=== PATIENT | male | born 1955 | race Caucasian/White ===

== ENCOUNTER 2020-06-20 08:58 | Outpatient (REF) | payer OTHER, SELFPAY ==
[2020-06-20 09:18] LABS: MANUAL DIFF FLAG NO
[2020-06-20 09:19] LABS: Basophils Percent Auto 0.6 % (0-2); Eosinophils Absolute Auto 0.2 X10*3/uL (0.0-0.4); Eosinophils Percent Auto 3.9 % (0-4); Hematocrit 47.1 % (42-52); Hemoglobin 15.8 g/dl (14.0-18.0); Imm Gran Abs Auto 0.02 X10*3/uL (0.00-0.03); Imm Gran Pct Auto 0.3 % (0.0-0.4); Lymphocytes Absolute Auto 1.6 X10*3/uL (1.2-4.9); Lymphocytes Percent Auto 25.2 % (20-40); Mean Corpuscular HGB Conc 33.5 g/dl (31.0-36.0); Mean Corpuscular Volume 86.6 fL (80-98); Mean Platelet Volume 11.8 fL (9.4-12.4); Monocytes Absolute Auto 0.5 X10*3/uL (0.1-1.2); Monocytes Percent Auto 7.9 % (2-11); Neutrophils Absolute Auto 3.9 X10*3/uL (2.0-8.3); Neutrophils Percent Auto 62.1 % (45-73); Platelet Count 147 X10*3/uL (160-400); Red Blood Count 5.44 X10*6/uL (4.60-5.80); Red Cell Distribution Width 12.8 % (11.0-16.0); White Blood Count 6.2 X10*3/uL (4.8-10.8)
[2020-06-20 09:49] LABS: Alanine Aminotransferase 31 U/L (0-40); Albumin Level 4.3 g/dL (3.5-5.0); Alkaline Phosphatase 99 U/L (39-117); Anion Gap 13 (12-20); Aspartate Amino Transferase 19 U/L (5-37); Bilirubin Total 1.2 mg/dL (0.0-1.0); Blood Urea Nitrogen 13 mg/dL (9-16); Carbon Dioxide 26 mmol/L (22-29); Chloride 96 mmol/L (96-108); Cholesterol 127 mg/dL; Estimated Glomerular Filt Rate > 60; Glucose Fasting 257 mg/dL (60-99); HDL Cholesterol 43 mg/dL; LDL Cholesterol Calculated 65 mg/dl; Potassium 4.3 mmol/l (3.3-5.1); Sodium 131 mmol/L (135-145); Total Protein 6.8 g/dL (6.5-8.0); Triglycerides 96 mg/dL
[2020-06-20 09:54] LABS: Creatinine Urine 107.46 mg/dL; Microalbum/Creatinine Ratio Ur 62.3 ug/mg cr
[2020-06-20 11:07] LABS: Hemoglobin A1c % > 14.0 %
== END 2020-06-20 08:59 | disposition home or self-care (01) ==
LOC: HO.LAB 08:58
PROVIDERS: Visit Provider Internal Medicine Medical Oncology
DX: E78.5 Hyperlipidemia, unspecified (principal); D69.6 Thrombocytopenia, unspecified; E66.01 Morbid (severe) obesity due to excess calories
CPT/HCPCS: 36415; 80053; 80061; 82043; 83036; 85025

== ENCOUNTER 2020-07-08 15:35 | Outpatient (REF) | payer OTHER, SELFPAY | END 2020-07-08 15:36 | disposition home or self-care (01) | LOC: HO.LAB 15:35 | PROVIDERS: Visit Provider Internal Medicine | DX: Z20.828 Contact with and (suspected) exposure to other viral communicable diseases (principal) | CPT/HCPCS: C9803; U0003 ==

== ENCOUNTER 2020-09-19 09:44 | Outpatient (REF) | payer OTHER, SELFPAY ==
[2020-09-19 11:08] LABS: MANUAL DIFF FLAG NO
[2020-09-19 11:16] LABS: Basophils Percent Auto 0.5 % (0-2); Eosinophils Absolute Auto 0.3 X10*3/uL (0.0-0.4); Eosinophils Percent Auto 4.1 % (0-4); Hematocrit 47.3 % (42-52); Hemoglobin 15.7 g/dl (14.0-18.0); Imm Gran Abs Auto 0.02 X10*3/uL (0.00-0.03); Imm Gran Pct Auto 0.3 % (0.0-0.4); Lymphocytes Absolute Auto 1.9 X10*3/uL (1.2-4.9); Lymphocytes Percent Auto 29.3 % (20-40); Mean Corpuscular HGB Conc 33.2 g/dl (31.0-36.0); Mean Corpuscular Hemoglobin 28.8 pg (27.0-33.0); Mean Corpuscular Volume 86.8 fL (80-98); Mean Platelet Volume 12.1 fL (9.4-12.4); Monocytes Absolute Auto 0.5 X10*3/uL (0.1-1.2); Monocytes Percent Auto 8.2 % (2-11); Neutrophils Absolute Auto 3.6 X10*3/uL (2.0-8.3); Neutrophils Percent Auto 57.6 % (45-73); Platelet Count 142 X10*3/uL (160-400); Red Blood Count 5.45 X10*6/uL (4.60-5.80); Red Cell Distribution Width 13.2 % (11.0-16.0); White Blood Count 6.3 X10*3/uL (4.8-10.8)
[2020-09-19 11:33] LABS: Estimated Average Glucose 292 mg/dL; Hemoglobin A1c % 11.8 %
[2020-09-19 11:44] LABS: Alanine Aminotransferase 25 U/L (0-40); Albumin Level 4.2 g/dL (3.5-5.0); Alkaline Phosphatase 83 U/L (39-117); Anion Gap 13 (12-20); Aspartate Amino Transferase 19 U/L (5-37); Bilirubin Total 1.4 mg/dL (0.0-1.0); Blood Urea Nitrogen 14 mg/dL (9-16); Calcium 9.2 mg/dL (8.4-10.2); Carbon Dioxide 29 mmol/L (22-29); Chloride 102 mmol/L (96-108); Estimated Glomerular Filt Rate > 60; Glucose Random 196 mg/dL (60-115); Potassium 4.9 mmol/L (3.3-5.1); Sodium 139 mmol/L (135-145); Total Protein 6.7 g/dL (6.5-8.0)
== END 2020-09-19 09:45 | disposition home or self-care (01) ==
LOC: HO.LAB 09:44
PROVIDERS: PCP Internal Medicine Medical Oncology; Visit Provider Internal Medicine Medical Oncology
DX: E78.5 Hyperlipidemia, unspecified (principal); D69.6 Thrombocytopenia, unspecified; E11.9 Type 2 diabetes mellitus without complications
CPT/HCPCS: 36415; 80053; 83036; 85025

== ENCOUNTER → 2020-09-23 14:39 | Outpatient (BNVA) | payer OTHER, SELFPAY | PROVIDERS: PCP Internal Medicine Medical Oncology; Visit Provider Internal Medicine Cardiovascular Disease | DX: I25.10 Atherosclerotic heart disease of native coronary artery without angina pectoris (principal); E78.5 Hyperlipidemia, unspecified | CPT/HCPCS: 93005 ==

== ENCOUNTER 2021-02-06 08:27 | Outpatient (REF) | payer OTHER, SELFPAY ==
[2021-02-06 08:49] LABS: Basophils Percent Auto 0.4 % (0-2); Eosinophils Absolute Auto 0.2 X10*3/uL (0.0-0.4); Eosinophils Percent Auto 3.1 % (0-4); Hematocrit 46.8 % (42-52); Hemoglobin 15.3 g/dl (14.0-18.0); Imm Gran Abs Auto 0.02 X10*3/uL (0.00-0.03); Imm Gran Pct Auto 0.3 % (0.0-0.4); Lymphocytes Absolute Auto 1.8 X10*3/uL (1.2-4.9); Lymphocytes Percent Auto 26.7 % (20-40); MANUAL DIFF FLAG NO; Mean Corpuscular HGB Conc 32.7 g/dl (31.0-36.0); Mean Corpuscular Hemoglobin 28.9 pg (27.0-33.0); Mean Corpuscular Volume 88.3 fL (80-98); Mean Platelet Volume 11.3 fL (9.4-12.4); Monocytes Absolute Auto 0.5 X10*3/uL (0.1-1.2); Monocytes Percent Auto 7.6 % (2-11); Neutrophils Absolute Auto 4.2 X10*3/uL (2.0-8.3); Neutrophils Percent Auto 61.9 % (45-73); Platelet Count 145 X10*3/uL (160-400); Red Cell Distribution Width 13.6 % (11.0-16.0); White Blood Count 6.8 X10*3/uL (4.8-10.8)
[2021-02-06 09:13] LABS: Estimated Average Glucose 123 mg/dL; Hemoglobin A1c % 5.9 %
[2021-02-06 09:17] LABS: Alanine Aminotransferase 25 U/L (0-40); Albumin Level 4.1 g/dL (3.5-5.0); Alkaline Phosphatase 69 U/L (39-117); Anion Gap 13 (12-20); Aspartate Amino Transferase 21 U/L (5-37); Bilirubin Total 1.3 mg/dL (0.0-1.0); Blood Urea Nitrogen 17 mg/dL (9-16); Calcium 9.2 mg/dL (8.4-10.2); Carbon Dioxide 24 mmol/L (22-29); Chloride 106 mmol/L (96-108); Estimated Glomerular Filt Rate > 60; Glucose Fasting 107 mg/dL (60-99); Potassium 4.5 mmol/L (3.3-5.1); Sodium 138 mmol/L (135-145); Total Protein 6.7 g/dL (6.5-8.0)
[2021-02-06 09:41] LABS: Erythrocyte Sedimentation Rate 2 MM/HR (0-15)
[2021-02-06 09:42] LABS: Prostate Specific Antigen 0.82 ng/mL (<0.05-4.0)
[2021-02-06 09:55] LABS: Creatinine Urine 121.63 mg/dL; Microalbum/Creatinine Ratio Ur 6.5 ug/mg cr
== END 2021-02-06 08:28 | disposition home or self-care (01) ==
LOC: HO.LAB 08:27
PROVIDERS: PCP Internal Medicine Medical Oncology; Visit Provider Internal Medicine Medical Oncology
DX: Z12.5 Encounter for screening for malignant neoplasm of prostate (principal); D69.6 Thrombocytopenia, unspecified; D12.6 Benign neoplasm of colon, unspecified; E66.01 Morbid (severe) obesity due to excess calories; E78.5 Hyperlipidemia, unspecified; E11.9 Type 2 diabetes mellitus without complications
CPT/HCPCS: 36415; 80053; 82043; 83036; 84153; 85025; 85652

== ENCOUNTER 2021-02-08 11:39 | Outpatient (REF) | payer OTHER, SELFPAY | END 2021-02-08 11:40 | disposition home or self-care (01) | LOC: HO.LAB 11:39 | PROVIDERS: PCP Internal Medicine Medical Oncology; Visit Provider Internal Medicine Medical Oncology | DX: Z20.822 Contact with and (suspected) exposure to COVID-19 (principal) | CPT/HCPCS: U0003; U0005 ==

== ENCOUNTER 2021-05-08 08:28 | Outpatient (REF) | payer OTHER, SELFPAY ==
[2021-05-08 08:44] LABS: MANUAL DIFF FLAG NO
[2021-05-08 09:25] LABS: Basophils Percent Auto 0.7 % (0-2); Eosinophils Absolute Auto 0.3 X10*3/uL (0.0-0.4); Eosinophils Percent Auto 5.2 % (0-4); Hemoglobin 15.7 g/dl (14.0-18.0); Imm Gran Abs Auto 0.02 X10*3/uL (0.00-0.03); Imm Gran Pct Auto 0.3 % (0.0-0.4); Lymphocytes Percent Auto 32.5 % (20-40); Mean Corpuscular HGB Conc 33.4 g/dl (31.0-36.0); Mean Corpuscular Hemoglobin 28.9 pg (27.0-33.0); Mean Corpuscular Volume 86.4 fL (80-98); Mean Platelet Volume 11.3 fL (9.4-12.4); Monocytes Absolute Auto 0.5 X10*3/uL (0.1-1.2); Monocytes Percent Auto 8.3 % (2-11); Neutrophils Absolute Auto 3.3 X10*3/uL (2.0-8.3); Platelet Count 149 X10*3/uL (160-400); Red Blood Count 5.44 X10*6/uL (4.60-5.80); Red Cell Distribution Width 13.7 % (11.0-16.0); White Blood Count 6.2 X10*3/uL (4.8-10.8)
[2021-05-08 09:37] LABS: Estimated Average Glucose 123 mg/dL; Hemoglobin A1c % 5.9 %
[2021-05-08 09:55] LABS: Alanine Aminotransferase 24 U/L (0-40); Albumin Level 4.2 g/dL (3.5-5.0); Alkaline Phosphatase 81 U/L (39-117); Anion Gap 11 (12-20); Aspartate Amino Transferase 21 U/L (5-37); Bilirubin Total 1.1 mg/dL (0.0-1.0); Blood Urea Nitrogen 19 mg/dL (9-16); Calcium 9.7 mg/dL (8.4-10.2); Carbon Dioxide 28 mmol/L (22-29); Chloride 105 mmol/L (96-108); Cholesterol 133 mg/dL; Estimated Glomerular Filt Rate > 60; Glucose Fasting 101 mg/dL (60-99); HDL Cholesterol 42 mg/dL; LDL Cholesterol Calculated 78 mg/dl; Potassium 5.1 mmol/L (3.3-5.1); Sodium 139 mmol/L (135-145); Total Protein 6.9 g/dL (6.5-8.0); Triglycerides 69 mg/dL
== END 2021-05-08 08:29 | disposition home or self-care (01) ==
LOC: HO.LAB 08:28
PROVIDERS: PCP Internal Medicine Medical Oncology; Visit Provider Internal Medicine Medical Oncology
DX: D69.6 Thrombocytopenia, unspecified (principal); E66.01 Morbid (severe) obesity due to excess calories; E78.5 Hyperlipidemia, unspecified; E11.9 Type 2 diabetes mellitus without complications
CPT/HCPCS: 36415; 80053; 80061; 83036; 85025

== ENCOUNTER 2021-09-04 09:19 | Outpatient (REF) | payer OTHER, SELFPAY ==
[2021-09-04 09:46] LABS: MANUAL DIFF FLAG NO
[2021-09-04 10:09] LABS: Estimated Average Glucose 137 mg/dL; Hemoglobin A1c % 6.4 %
[2021-09-04 10:16] LABS: Basophils Percent Auto 0.7 % (0-2); Eosinophils Absolute Auto 0.2 X10*3/uL (0.0-0.4); Eosinophils Percent Auto 3.7 % (0-4); Hemoglobin 15.6 g/dl (14.0-18.0); Imm Gran Abs Auto 0.02 X10*3/uL (0.00-0.03); Imm Gran Pct Auto 0.3 % (0.0-0.4); Lymphocytes Absolute Auto 1.9 X10*3/uL (1.2-4.9); Lymphocytes Percent Auto 31.9 % (20-40); Mean Corpuscular HGB Conc 33.2 g/dl (31.0-36.0); Mean Corpuscular Hemoglobin 29.1 pg (27.0-33.0); Mean Corpuscular Volume 87.5 fL (80.0-98.0); Mean Platelet Volume 11.7 fL (9.4-12.4); Monocytes Absolute Auto 0.5 X10*3/uL (0.1-1.2); Monocytes Percent Auto 8.6 % (2-11); Neutrophils Absolute Auto 3.3 x10*3/uL (2.0-8.3); Neutrophils Percent Auto 54.8 % (45-73); Platelet Count 120 X10*3/uL (160-400); Red Blood Count 5.37 X10*6/uL (4.60-5.80); Red Cell Distribution Width 13.2 % (11.0-16.0)
[2021-09-04 10:31] LABS: Alanine Aminotransferase 22 U/L (0-40); Albumin Level 4.1 g/dL (3.5-5.0); Alkaline Phosphatase 77 U/L (39-117); Anion Gap 11 (12-20); Aspartate Amino Transferase 19 U/L (5-37); Bilirubin Total 1.4 mg/dL (0.0-1.0); Blood Urea Nitrogen 18 mg/dL (9-16); Calcium 9.4 mg/dL (8.4-10.2); Carbon Dioxide 26 mmol/L (22-29); Chloride 108 mmol/L (96-108); Estimated Glomerular Filt Rate > 60; Glucose Fasting 113 mg/dL (60-99); Potassium 4.5 mmol/L (3.3-5.1); Sodium 140 mmol/L (135-145); Total Protein 6.7 g/dL (6.5-8.0)
== END 2021-09-04 09:20 | disposition home or self-care (01) ==
LOC: HO.LAB 09:19
PROVIDERS: PCP Internal Medicine Medical Oncology; Visit Provider Internal Medicine Medical Oncology
DX: D69.6 Thrombocytopenia, unspecified (principal); D12.6 Benign neoplasm of colon, unspecified; E66.01 Morbid (severe) obesity due to excess calories; E78.5 Hyperlipidemia, unspecified; E11.9 Type 2 diabetes mellitus without complications
CPT/HCPCS: 36415; 80053; 83036; 85025

== ENCOUNTER → 2021-09-27 13:52 | Outpatient (BNVA) | payer OTHER, SELFPAY | PROVIDERS: PCP Internal Medicine Medical Oncology; Visit Provider Internal Medicine Cardiovascular Disease | DX: I25.10 Atherosclerotic heart disease of native coronary artery without angina pectoris (principal); I25.2 Old myocardial infarction; Z79.82 Long term (current) use of aspirin | CPT/HCPCS: 93005 ==

== ENCOUNTER 2021-12-11 08:40 | Outpatient (REF) | payer OTHER, SELFPAY ==
[2021-12-11 08:54] LABS: MANUAL DIFF FLAG NO
[2021-12-11 09:26] LABS: Basophils Percent Auto 0.8 % (0-2); Eosinophils Absolute Auto 0.2 X10*3/uL (0.0-0.4); Eosinophils Percent Auto 3.9 % (0-4); Hematocrit 45.8 % (42.0-52.0); Hemoglobin 15.3 g/dl (14.0-18.0); Imm Gran Abs Auto 0.01 X10*3/uL (0.00-0.03); Imm Gran Pct Auto 0.2 % (0.0-0.4); Lymphocytes Absolute Auto 1.7 X10*3/uL (1.2-4.9); Lymphocytes Percent Auto 32.8 % (20-40); Mean Corpuscular HGB Conc 33.4 g/dl (31.0-36.0); Mean Corpuscular Hemoglobin 28.9 pg (27.0-33.0); Mean Corpuscular Volume 86.6 fL (80.0-98.0); Mean Platelet Volume 12.2 fL (9.4-12.4); Monocytes Absolute Auto 0.5 X10*3/uL (0.1-1.2); Monocytes Percent Auto 8.8 % (2-11); Neutrophils Absolute Auto 2.7 x10*3/uL (2.0-8.3); Neutrophils Percent Auto 53.5 % (45-73); Platelet Count 128 X10*3/uL (160-400); Red Blood Count 5.29 X10*6/uL (4.60-5.80); Red Cell Distribution Width 13.7 % (11.0-16.0); White Blood Count 5.1 X10*3/uL (4.8-10.8)
[2021-12-11 09:49] LABS: Estimated Average Glucose 143 mg/dL; Hemoglobin A1c % 6.6 %
[2021-12-11 10:00] LABS: Alanine Aminotransferase 25 U/L (0-40); Albumin Level 4.1 g/dL (3.5-5.0); Alkaline Phosphatase 76 U/L (39-117); Anion Gap 12 (12-20); Aspartate Amino Transferase 21 U/L (5-37); Blood Urea Nitrogen 18 mg/dL (9-16); Calcium 9.6 mg/dL (8.4-10.2); Carbon Dioxide 22 mmol/L (22-29); Chloride 109 mmol/L (96-108); Cholesterol 135 mg/dL; Estimated Glomerular Filt Rate > 60; Glucose Fasting 147 mg/dL (60-99); HDL Cholesterol 46 mg/dL; LDL Cholesterol Calculated 77 mg/dl; Potassium 4.3 mmol/L (3.3-5.1); Sodium 139 mmol/L (135-145); Triglycerides 64 mg/dL
[2021-12-11 10:22] LABS: PSA,Total (Free>4and<10) 0.72 ng/mL (0.00-4.00)
== END 2021-12-11 08:41 | disposition home or self-care (01) ==
LOC: HO.LAB 08:40
PROVIDERS: PCP Internal Medicine Medical Oncology; Visit Provider Internal Medicine Medical Oncology
DX: Z12.5 Encounter for screening for malignant neoplasm of prostate (principal); E78.5 Hyperlipidemia, unspecified; E11.9 Type 2 diabetes mellitus without complications; N40.0 Benign prostatic hyperplasia without lower urinary tract symptoms
CPT/HCPCS: 36415; 80053; 80061; 83036; 84153; 85025

== ENCOUNTER 2022-03-01 07:27 | Outpatient (REF) | payer OTHER, SELFPAY ==
[2022-03-01 07:45] LABS: MANUAL DIFF FLAG NO
[2022-03-01 08:05] LABS: Basophils Percent Auto 0.4 % (0-2); Eosinophils Absolute Auto 0.3 X10*3/uL (0.0-0.4); Eosinophils Percent Auto 5.9 % (0-4); Hemoglobin 14.9 g/dl (14.0-18.0); Imm Gran Abs Auto 0.01 X10*3/uL (0.00-0.03); Imm Gran Pct Auto 0.2 % (0.0-0.4); Lymphocytes Absolute Auto 1.8 X10*3/uL (1.2-4.9); Mean Corpuscular HGB Conc 33.1 g/dl (31.0-36.0); Mean Corpuscular Hemoglobin 28.7 pg (27.0-33.0); Mean Corpuscular Volume 86.5 fL (80.0-98.0); Mean Platelet Volume 11.4 fL (9.4-12.4); Monocytes Absolute Auto 0.5 X10*3/uL (0.1-1.2); Monocytes Percent Auto 8.7 % (2-11); Neutrophils Absolute Auto 2.8 x10*3/uL (2.0-8.3); Neutrophils Percent Auto 51.8 % (45-73); Platelet Count 122 X10*3/uL (160-400); Red Cell Distribution Width 13.3 % (11.0-16.0); White Blood Count 5.4 X10*3/uL (4.8-10.8)
[2022-03-01 08:15] LABS: Estimated Average Glucose 148 mg/dL; Hemoglobin A1c % 6.8 %
[2022-03-01 08:25] LABS: Alanine Aminotransferase 21 U/L (0-40); Albumin Level 4.1 g/dL (3.5-5.0); Alkaline Phosphatase 73 U/L (39-117); Anion Gap 13 (12-20); Aspartate Amino Transferase 21 U/L (5-37); Bilirubin Total 1.1 mg/dL (0.0-1.0); Blood Urea Nitrogen 17 mg/dL (9-16); Calcium 9.3 mg/dL (8.4-10.2); Carbon Dioxide 27 mmol/L (22-29); Chloride 105 mmol/L (96-108); Cholesterol 130 mg/dL; Estimated Glomerular Filt Rate > 60; Glucose Fasting 133 mg/dL (60-99); HDL Cholesterol 45 mg/dL; LDL Cholesterol Calculated 69 mg/dl; Potassium 4.8 mmol/L (3.3-5.1); Sodium 140 mmol/L (135-145); Total Protein 6.7 g/dL (6.5-8.0); Triglycerides 83 mg/dL
[2022-03-01 08:46] LABS: Prostate Specific Antigen 0.73 ng/mL (<0.05-4.0)
== END 2022-03-01 07:28 | disposition home or self-care (01) ==
LOC: HO.LAB 07:27
PROVIDERS: PCP Internal Medicine Medical Oncology; Visit Provider Internal Medicine Medical Oncology
DX: Z12.5 Encounter for screening for malignant neoplasm of prostate (principal); E78.5 Hyperlipidemia, unspecified; E11.9 Type 2 diabetes mellitus without complications; N40.0 Benign prostatic hyperplasia without lower urinary tract symptoms
CPT/HCPCS: 36415; 80053; 80061; 83036; 84153; 85025

== ENCOUNTER 2022-06-06 08:30 | Outpatient (REF) | payer OTHER, SELFPAY ==
[2022-06-06 08:41] LABS: MANUAL DIFF FLAG NO
[2022-06-06 09:10] LABS: Basophils Absolute Auto 0.1 X10*3/uL (0.0-0.2); Eosinophils Absolute Auto 0.2 X10*3/uL (0.0-0.4); Eosinophils Percent Auto 3.7 % (0-4); Hematocrit 46.4 % (42.0-52.0); Hemoglobin 15.1 g/dl (14.0-18.0); Imm Gran Abs Auto 0.01 X10*3/uL (0.00-0.03); Imm Gran Pct Auto 0.2 % (0.0-0.4); Lymphocytes Absolute Auto 1.5 X10*3/uL (1.2-4.9); Lymphocytes Percent Auto 29.7 % (20-40); Mean Corpuscular HGB Conc 32.5 g/dl (31.0-36.0); Mean Corpuscular Hemoglobin 28.4 pg (27.0-33.0); Mean Corpuscular Volume 87.2 fL (80.0-98.0); Mean Platelet Volume 11.8 fL (9.4-12.4); Monocytes Absolute Auto 0.5 X10*3/uL (0.1-1.2); Monocytes Percent Auto 9.4 % (2-11); Neutrophils Absolute Auto 2.9 x10*3/uL (2.0-8.3); Platelet Count 126 X10*3/uL (160-400); Red Blood Count 5.32 X10*6/uL (4.60-5.80); Red Cell Distribution Width 13.6 % (11.0-16.0); White Blood Count 5.2 X10*3/uL (4.8-10.8)
[2022-06-06 09:17] LABS: Estimated Average Glucose 148 mg/dL; Hemoglobin A1c % 6.8 %
[2022-06-06 09:21] LABS: Alanine Aminotransferase 22 U/L (0-40); Albumin Level 4.2 g/dL (3.5-5.0); Alkaline Phosphatase 86 U/L (39-117); Anion Gap 16 (12-20); Aspartate Amino Transferase 23 U/L (5-37); Bilirubin Total 1.9 mg/dL (0.0-1.0); Blood Urea Nitrogen 20 mg/dL (9-16); Calcium 9.2 mg/dL (8.4-10.2); Carbon Dioxide 24 mmol/L (22-29); Chloride 104 mmol/L (96-108); Cholesterol 135 mg/dL; Estimated Glomerular Filt Rate > 60; Glucose Fasting 120 mg/dL (60-99); HDL Cholesterol 45 mg/dL; LDL Cholesterol Calculated 75 mg/dl; Potassium 4.7 mmol/L (3.3-5.1); Sodium 139 mmol/L (135-145); Total Protein 6.8 g/dL (6.5-8.0); Triglycerides 76 mg/dL
[2022-06-06 10:05] LABS: Creatinine Urine 177.55 mg/dL; Microalbum/Creatinine Ratio Ur 11.2 ug/mg cr
== END 2022-06-06 08:31 | disposition home or self-care (01) ==
LOC: HO.LAB 08:30
PROVIDERS: PCP Internal Medicine Medical Oncology; Visit Provider Internal Medicine Medical Oncology
DX: E78.5 Hyperlipidemia, unspecified (principal); E11.9 Type 2 diabetes mellitus without complications
CPT/HCPCS: 36415; 80053; 80061; 82043; 83036; 85025

== ENCOUNTER 2022-08-30 08:20 | Outpatient (REF) | payer OTHER, SELFPAY ==
[2022-08-30 08:41] LABS: MANUAL DIFF FLAG NO
[2022-08-30 09:19] LABS: Basophils Percent Auto 0.7 % (0-2); Eosinophils Absolute Auto 0.2 X10*3/uL (0.0-0.4); Eosinophils Percent Auto 3.4 % (0-4); Hematocrit 46.5 % (42.0-52.0); Hemoglobin 15.7 g/dl (14.0-18.0); Imm Gran Abs Auto 0.02 X10*3/uL (0.00-0.03); Imm Gran Pct Auto 0.4 % (0.0-0.4); Lymphocytes Absolute Auto 1.6 X10*3/uL (1.2-4.9); Lymphocytes Percent Auto 28.6 % (20-40); Mean Corpuscular HGB Conc 33.8 g/dl (31.0-36.0); Mean Corpuscular Hemoglobin 28.9 pg (27.0-33.0); Mean Corpuscular Volume 85.5 fL (80.0-98.0); Mean Platelet Volume 12.1 fL (9.4-12.4); Monocytes Absolute Auto 0.5 X10*3/uL (0.1-1.2); Monocytes Percent Auto 8.4 % (2-11); Neutrophils Absolute Auto 3.3 x10*3/uL (2.0-8.3); Neutrophils Percent Auto 58.5 % (45-73); Platelet Count 144 X10*3/uL (160-400); Red Blood Count 5.44 X10*6/uL (4.60-5.80); Red Cell Distribution Width 13.1 % (11.0-16.0); White Blood Count 5.6 X10*3/uL (4.8-10.8)
[2022-08-30 09:37] LABS: Estimated Average Glucose 189 mg/dL; Hemoglobin A1c % 8.2 %
[2022-08-30 09:57] LABS: Alanine Aminotransferase 24 U/L (0-40); Albumin Level 4.2 g/dL (3.5-5.0); Alkaline Phosphatase 95 U/L (39-117); Anion Gap 13 (12-20); Aspartate Amino Transferase 20 U/L (5-37); Bilirubin Total 1.4 mg/dL (0.0-1.0); Blood Urea Nitrogen 25 mg/dL (9-16); Calcium 9.5 mg/dL (8.4-10.2); Carbon Dioxide 25 mmol/L (22-29); Chloride 106 mmol/L (96-108); Cholesterol 139 mg/dL; Estimated Glomerular Filt Rate > 60; Glucose Random 157 mg/dL (60-115); HDL Cholesterol 40 mg/dL; LDL Cholesterol Calculated 84 mg/dl; Potassium 5.1 mmol/L (3.3-5.1); Sodium 139 mmol/L (135-145); Total Protein 6.8 g/dL (6.5-8.0); Triglycerides 75 mg/dL
[2022-08-30 10:12] LABS: Prostate Specific Antigen 0.74 ng/mL (<0.05-4.0)
== END 2022-08-30 08:21 | disposition home or self-care (01) ==
LOC: HO.LAB 08:20
PROVIDERS: PCP Internal Medicine Medical Oncology; Visit Provider Internal Medicine Medical Oncology
DX: E78.5 Hyperlipidemia, unspecified (principal); D69.6 Thrombocytopenia, unspecified; D12.6 Benign neoplasm of colon, unspecified; F52.21 Male erectile disorder; E66.01 Morbid (severe) obesity due to excess calories; N20.1 Calculus of ureter; E11.9 Type 2 diabetes mellitus without complications; N40.0 Benign prostatic hyperplasia without lower urinary tract symptoms; Z12.5 Encounter for screening for malignant neoplasm of prostate
CPT/HCPCS: 36415; 80053; 80061; 83036; 84153; 85025

== ENCOUNTER 2022-09-13 11:34 | Emergency (ER) | payer OTHER, SELFPAY ==
--- NOTE | ~2022-09-13 | CT_ITS ---
EXAMINATION: CTA OF THE HEAD AND NECK CLINICAL INFORMATION: Dizziness and ataxia. COMPARISON: None. TECHNIQUE: Test bolus sequences followed by intravenous administration 70 mL of Omnipaque 350. Helical imaging was performed in the axial plane from the mediastinum to the skull vertex. Delayed postcontrast imaging of the head was also performed. The data was processed at the apparatus engineering technologist's workstation for generation of MIP sequences. Three-dimensional volume rendered reformatted images were also generated at an offline 3-D workstation. Stenoses are assessed in accordance with NASCET criteria unless otherwise indicated. This CT examination was performed using dose optimization techniques as appropriate, variously including the following: *Automated exposure control *Adjustment of mA and/or kV according to patient size (this includes techniques or standardized protocols for targeted exams where dose is matched to indication/reason for exam; i.e. extremities or head) *Use of iterative reconstruction technique DLP: 2489 mGy-cm. FINDINGS: CT head: There is no evidence of acute intracranial hemorrhage or territorial infarction. There is no loss of watson to white matter differentiation. No abnormal mass effect or midline shift is seen. No extra-axial fluid collections are identified. There is no abnormal enhancement. The ventricles are normal in size. There is no abnormal attenuation within the brain parenchyma. The osseous structures and soft tissues are normal. The mastoid air cells and visualized portions of the paranasal sinuses are well aerated. CTA neck: The imaged aortic arch and origins of the great vessels are normal. The common carotid arteries are widely patent. The carotid bifurcations are patent with mild atherosclerotic wall calcifications. The cervical internal carotid arteries are otherwise normal. The vertebral arteries opacify normally and are of normal caliber. The soft tissues of the neck are unremarkable. There are dependent subsegmental atelectatic changes in the lungs. Multilevel cervical spondylosis noted. CTA head: The intradural vertebral arteries and basilar artery are patent with mild atherosclerotic wall calcifications. The posterior cerebral arteries are widely patent. The internal carotid arteries are of normal caliber. A small outpouching along the lateral wall of the cavernous segment of the left ICA may represent a conspicuous infundibular origin of the inferolateral trunk versus a tiny 1.5 mm aneurysm. There are [id number] atherosclerotic wall calcifications in the supraclinoid internal carotid arteries, more so on the left side. The AVILA and MCA vascular complexes bilaterally are normal. There is no abnormal parenchymal or leptomeningeal enhancement intracranially. The venous sinuses opacify normally. CT/CT angio head neck IMPRESSION: Relatively normal CT angiogram of the neck with mild atherosclerotic wall calcifications at the bifurcations. Small 1.5 mm outpouching along the lateral wall of the cavernous segment of the left ICA which either represents a conspicuous infundibular origin of the inferolateral trunk versus a tiny aneurysm. [id number] atherosclerotic wall calcifications in the supraclinoid internal carotid arteries without significant stenosis. Otherwise, normal CT angiogram of the head. No acute intracranial process. Imaging findings reported to SANDRINE Bhat at 1:56 PM on 09/13/2022.
--- NOTE | 2022-09-13 11:38 | ED_ITS ---
HPI - Dizziness General Chief Complaint: Dizziness <Bellebecka Spivey CNP - Last Filed: 09/13/22 11:59> Stated Complaint: Dizziness/R ear hearing loss <Belle Lucretia Spivey CNP - Last Filed: 09/13/22 11:59> Time Seen by Provider: 09/13/22 11:50 <Belle Spivey CNP - Last Filed: 09/13/22 11:59> Source: patient <Arely JonesDO - Last Filed: 09/13/22 16:30> Mode of arrival: ambulatory <Arely Robert DO - Last Filed: 09/13/22 16:30> Limitations: no limitations <Arely Jonse DO - Last Filed: 09/13/22 16:30> History of Present Illness HPI Narrative: 67 yo male with hx of CAD, HLD not on thinners here not feeling well x 1 week with R ear blockage feels like he has wax or something in it. On and off dizziness that is room spinning with n/v getting worse. He was sick with it yesterday as well woke up and seemed okay so he tried to go to work and then became acutely dizzy again at 9am but states he was never quite right. He has a hard time walking straight and has been vomiting <Arely Jones DO - Last Filed: 09/13/22 16:30> MD elicited complaint: dizziness <Arely DO Robert - Last Filed: 09/13/22 16:30> Onset (ago): week(s) (1) <Arely Jones DO - Last Filed: 09/13/22 16:30> Timing: sudden onset and intermittent <Arely Jones DO - Last Filed: 09/13/22 16:30> Severity: severe <Arely Jones DO - Last Filed: 09/13/22 16:30> Description: room spinning <Arely Jones DO - Last Filed: 09/13/22 16:30> History of similar symptoms: No <Arely Jones DO - Last Filed: 09/13/22 16:30> Exacerbating factors: other (turning head) <Arely Jones DO - Last Filed: 09/13/22 16:30> Relieving factors: remaining still <Arely Jones DO - Last Filed: 09/13/22 16:30> Associated symptoms: nausea and vomiting <Arely Jones - Last Filed: 09/13/22 16:30> Related Data Home Medications: Home Medications Medication Instructions Recorded Confirmed aspirin 81 mg tablet,delayed 81 mg PO DAILY 09/23/20 09/27/21 release (Adult Low Dose Aspirin) atorvastatin 80 mg tablet 80 mg PO DAILY 09/23/20 09/27/21 metoprolol succinate 25 mg 25 mg PO DAILY 09/23/20 09/27/21 tablet,extended release 24 hr dulaglutide 0.75 mg/0.5 mL mg subcut 09/27/21 09/27/21 subcutaneous pen injector (Trulicity) Previous Rx's Medication Instructions Recorded lisinopril 5 mg tablet 5 mg PO DAILY #90 tabs 06/09/22 amoxicillin 875 mg-potassium 1 tab PO BID #14 tabs 09/13/22 clavulanate 125 mg tablet meclizine 25 mg tablet 25 mg PO TID PRN dizziness #30 tabs 09/13/22 ofloxacin 0.3 % ear drops 10 drp otic (ear) right DAILY 7 09/13/22 days #5 mL <Belle Spivey [facility] - Last Filed: 09/13/22 11:59> Allergies/Adverse Reactions: Allergies Allergy/AdvReac Type Severity Reaction Status Date / Time No Known Allergies Allergy Mild N/A Verified 09/13/22 11:43 <Belle Spivey [facility] - Last Filed: 09/13/22 11:59> Review of Systems Review of Systems: Constitutional : No Fever, No Chills, No Fatigue ENT/Mouth : No sore throat, No Rhinorrhea, R ear blockage/hearing loss Eyes: No Eye Pain, No Swelling, No Redness Cardiovascular : No Chest Pain, No SOB, No Dyspnea on Exertion Respiratory : No Cough, No Sputum Gastrointestinal : pos Nausea, pos Vomiting, No Diarrhea, No abdominal Pain Genitourinary : No Dysuria, No Urinary Frequency, No Hematuria, Musculoskeletal : No joint pain, No Myalgias, No Joint Swelling Skin : No Skin Lesions, No rash Neuro : No Weakness, No Numbness, pos Dizziness, no Headache Psych : No Anxiety/Panic, No Depression Heme/Lymph: No Bruising, No Bleeding,No Lymphadenopathy Endocrine : No Polyuria, No Polydipsia All other systems reviewed and are negative <Arely Jones DO - Last Filed: 09/13/22 16:30> [facility] Past Medical History Attestation statement: The following information was validated with the patient. <Arely Jones DO - Last Filed: 09/13/22 16:30> Medical History: Medical History Coronary artery disease Hyperlipidemia <Belle Spivey CNP - Last Filed: 09/13/22 11:59> Surgical History: Surgical History History of colonoscopy with polypectomy (~02/13/08) History of shoulder surgery (~2010) Hx of colonoscopy (~02/14/13) Hx of heart artery stent (~03/2018) Hx of right knee surgery <Belle Spivey CNP - Last Filed: 09/13/22 11:59> Family History Family History: Family History Mother Hx of breast cancer <Belle Spivey CNP - Last Filed: 09/13/22 11:59> Social History Social History: Social History Alcohol intake: never Patient Tobacco Use Status: Former Tobacco user Quit Date: 1981 Years Smoked: 20 +/- Smoked in Last 30 Days: No Use of substances other than those prescribed or required for medical reasons: No Advance Directives: No Advance Directives Information Provided: Yes <Belle Spivey CNP - Last Filed: 09/13/22 11:59> Physical Exam Vital Signs: Vital Signs: Last Vital Signs Temp 96.0 F L 09/13/22 11:40 Pulse 56 09/13/22 14:00 Resp 18 09/13/22 14:00 BP 157/84 H 09/13/22 14:00 Pulse Ox 99 09/13/22 14:00 O2 Del Method 09/13/22 14:00 BMI result Body Mass Index 36.8 <Belle Spivey CNP - Last Filed: 09/13/22 11:59> Vital Signs: Last Vital Signs Temp 96.0 F L 09/13/22 11:40 Pulse 56 09/13/22 14:00 Resp 18 09/13/22 14:00 BP 157/84 H 09/13/22 14:00 Pulse Ox 99 09/13/22 14:00 O2 Del Method 09/13/22 14:00 BMI result Body Mass Index 36.8 <Arely Jones DO - Last Filed: 09/13/22 16:30> Appearance: Alert. Oriented X3. No acute distress. Eyes: Pupils equal, round and reactive to light. no nystagmus ENT: Pharynx normal. R TM dull opacified, white in appearance, no cerumen impactio ext canal is red and swollen no drainage, no obvious perforation Neck: Normal inspection. Neck supple. CVS: Normal heart rate and rhythm. Pulses normal. Respiratory: No respiratory distress. Breath sounds normal. Abdomen: Soft and nontender. Skin: Skin warm and dry. Normal skin color. Normal skin turgor. Extremities: No lower extremity edema. No calf ttp Neuro: Oriented X 3. No motor deficit. No sensory deficit. cannot ambulate due to dizziness <Arely Jones DO - Last Filed: 09/13/22 16:30> Course Course Course Narrative: This is an RME: Additional HPI, ROS, PE not included below will be defe rred to primary provider. Patient is a 67-year-old male with Sudden onset at 0900 with dizziness head spinning unsteady gait, nausea and vomiting while at work. Denies any associated headache. Denies any history of vertigo. 1 week ago he developed a blockage to right ear and inability to hear. Called his PCP today, Dr. Morrissey, scheduled him an appointment for 13:30 today, but with worsening of his symptoms he was then advised to come to the emergency department. Denies chest pain, shortness of breath, hx [place] in 2019. PE: Right ear with cerumen impaction. actively vomiting a small amount in triage. bradycardic 47. Ataxic gait with out additional focal neurological findings. Plan: Spoke with rn relief charge, patient moved to main ED 18H provided report to Dr. Jones <Belle Spivey, [employer] SERVICER SUPERVISOR - Last Filed: 09/13/22 11:59> Reevaluation(s) Reevaluation #1: CT scan no dissection, stroke, incidental aneurysm not the cause of today's symptoms. feels much better very minimal dizziness, no vomiting, will ambulate patient steady gait, no ataxia has R knee he cannot straighten out chronic limp he is not leaning no wide based gait he was able spin walk and move around without any issues or symptoms symptoms resolved with medications no ataxia no other deficits one week of symptoms R ear the cause doubt posterior stroke <Arely Jones DO - Last Filed: 09/13/22 16:30> Medications Administered Discontinued Medications Generic Name Dose Route Start Last Admin Trade Name Freq PRN Reason Stop Dose Admin Sodium Chloride 1,000 mls @ 999 mls/hr 09/13/22 12:15 09/13/22 13:13 Ns IVCONT 09/13/22 13:15 Infused .Q1H1M KAYODE Infusion Iohexol 100 ml 09/13/22 13:14 09/13/22 13:14 Iohexol 350 Mg/Ml 100 Ml Infus..Btl IV 09/13/22 13:15 70 ml ONCE ONE Administration Meclizine HCl 25 mg 09/13/22 12:04 09/13/22 13:26 Meclizine Hcl 25 Mg Tablet PO 09/13/22 12:05 25 mg ONCE ONE Administration Ondansetron HCl 4 mg 09/13/22 12:04 09/13/22 12:11 Ondansetron Hcl 4 Mg/2 Ml Vial IVPUSH 09/13/22 12:05 4 mg ONCE ONE Administration <Belle Spivey, PU[employer] SERVICER SUPERVISOR - Last Filed: 09/13/22 11:59> Medications Administered Discontinued Medications Generic Name Dose Route Start Last Admin Trade Name Freq PRN Reason Stop Dose Admin Sodium Chloride 1,000 mls @ 999 mls/hr 09/13/22 12:15 09/13/22 13:13 Ns IVCONT 09/13/22 13:15 Infused .Q1H1M KAYODE Infusion Iohexol 100 ml 09/13/22 13:14 09/13/22 13:14 Iohexol 350 Mg/Ml 100 Ml Infus..Btl IV 09/13/22 13:15 70 ml ONCE ONE Administration Meclizine HCl 25 mg 09/13/22 12:04 09/13/22 13:26 Meclizine Hcl 25 Mg Tablet PO 09/13/22 12:05 25 mg ONCE ONE Administration Ondansetron HCl 4 mg 09/13/22 12:04 09/13/22 12:11 Ondansetron Hcl 4 Mg/2 Ml Vial IVPUSH 09/13/22 12:05 4 mg ONCE ONE Administration <Arely Jones DO - Last Filed: 09/13/22 16:30> Medical Decision Making Medical Decision Making [facility] Narrative: 67 yo male with hx of HLD, CAD here with 1 week of symptoms waxing and waning but states he was never quite right now comes in with c/o dizziness and n/v that is persistent and worse this AM it sounds like he never returned to baseline. He has no other deficits. He blames it on a blocked R ear - at this time could be vertigo vs posterior stroke - given his symptoms have been 1+ week waxing and waning but never at his baseline or 100% he would not be a candidate for tPa at this time. CTA head and neck, EKG IVF, IV zofran and meclizine ordered. <Arely Jones DO - Last Filed: 09/13/22 16:30> Differential Diagnosis Differential Diagnoses: The differential diagnosis associated with the presentation includes <Arely Jones DO - Last Filed: 09/13/22 16:30> vertigo, mass, ICH, posterior stroke <Arely Jones DO - Last Filed: 09/13/22 16:30> Lab Data [facility] Lab Attestation statement: I reviewed the patient's lab results. <Arely Jones DO - Last Filed: 09/13/22 16:30> Result Diagrams: 09/13/22 12:16 09/13/22 12:16 <Belle Spivey CNP - Last Filed: 09/13/22 11:59> Labs: Lab Results 09/13/22 09/13/22 09/13/22 Range/Units 12:16 12:16 12:16 WBC 8.1 (4.8-10.8) X10*3/uL RBC 5.58 (4.60-5.80) X10*6/uL Hgb 16.0 (14.0-18.0) g/dl Hct 48.1 (42.0-52.0) % MCV 86.2 (80.0-98.0) fL MCH 28.7 (27.0-33.0) pg MCHC 33.3 (31.0-36.0) g/dl RDW 13.2 (11.0-16.0) % Plt Count 142 L (160-400) X10*3/uL MPV 11.1 (9.4-12.4) fL Immature Gran % (Auto) 0.4 (0.0-0.4) % Neut % (Auto) 71.6 (45-73) % Lymph % (Auto) 21.1 (20-40) % Bartholomew % (Auto) 4.6 (2-11) % Eos % (Auto) 1.7 (0-4) % Baso % (Auto) 0.6 (0-2) % Lymph # (Auto) 1.7 (1.2-4.9) X10*3/uL Bartholomew # (Auto) 0.4 (0.1-1.2) X10*3/uL Eos # (Auto) 0.1 (0.0-0.4) X10*3/uL Baso # (Auto) 0.1 (0.0-0.2) X10*3/uL Abs Immat Gran (auto) 0.03 (0.00-0.03) X10*3/uL Absolute Neuts (auto) 5.8 (2.0-8.3) x10*3/uL Absolute Nucleated RBC 0.000 (0.0-0.012) X10*3/uL Nucleated RBC % (auto) 0.0 (0.0-0.2) /100WBC PT 12.3 (10.0-13.1) SEC INR 1.1 (0.9-1.1) Sodium 138 (135-145) mmol/L Potassium 4.6 (3.3-5.1) mmol/L Chloride 104 (96-108) mmol/L Carbon Dioxide 25 (22-29) mmol/L Anion Gap 14 (12-20) BUN 17 H (9-16) mg/dL Creatinine 0.96 (0.5-1.4) mg/dL Estim Creat Clear Calc 92.1 Estimated GFR > 60 Random Glucose 232 H (60-115) mg/dL Calcium 9.4 (8.4-10.2) mg/dL Magnesium 1.7 (1.6-2.6) mg/dL Total Bilirubin 1.2 H (0.0-1.0) mg/dL Direct Bilirubin 0.3 (0.0-0.5) mg/dL AST 21 (5-37) U/L ALT 27 (0-40) U/L Alkaline Phosphatase 97 (39-117) U/L Troponin I High Sens (<3.5-35.0) ng/L Total Protein 6.9 (6.5-8.0) g/dL Albumin 4.3 (3.5-5.0) g/dL Lipase 20 (8-78) U/L COVID-19 (LIDIA) (Negative) COVID-19 Clin Com 09/13/22 09/13/22 Range/Units 12:16 12:16 WBC (4.8-10.8) X10*3/uL RBC (4.60-5.80) X10*6/uL Hgb (14.0-18.0) g/dl Hct (42.0-52.0) % MCV (80.0-98.0) fL MCH (27.0-33.0) pg MCHC (31.0-36.0) g/dl RDW (11.0-16.0) % Plt Count (160-400) X10*3/uL MPV (9.4-12.4) fL Immature Gran % (Auto) (0.0-0.4) % Neut % (Auto) (45-73) % Lymph % (Auto) (20-40) % Bartholomew % (Auto) (2-11) % Eos % (Auto) (0-4) % Baso % (Auto) (0-2) % Lymph # (Auto) (1.2-4.9) X10*3/uL Bartholomew # (Auto) (0.1-1.2) X10*3/uL Eos # (Auto) (0.0-0.4) X10*3/uL Baso # (Auto) (0.0-0.2) X10*3/uL Abs Immat Gran (auto) (0.00-0.03) X10*3/uL Absolute Neuts (auto) (2.0-8.3) x10*3/uL Absolute Nucleated RBC (0.0-0.012) X10*3/uL Nucleated RBC % (auto) (0.0-0.2) /100WBC PT (10.0-13.1) SEC INR (0.9-1.1) Sodium (135-145) mmol/L Potassium (3.3-5.1) mmol/L Chloride (96-108) mmol/L Carbon Dioxide (22-29) mmol/L Anion Gap (12-20) BUN (9-16) mg/dL Creatinine (0.5-1.4) mg/dL Estim Creat Clear Calc Estimated GFR Random Glucose (60-115) mg/dL Calcium (8.4-10.2) mg/dL Magnesium (1.6-2.6) mg/dL Total Bilirubin (0.0-1.0) mg/dL Direct Bilirubin (0.0-0.5) mg/dL AST (5-37) U/L ALT (0-40) U/L Alkaline Phosphatase (39-117) U/L Troponin I High Sens < 3.5 (<3.5-35.0) ng/L Total Protein (6.5-8.0) g/dL Albumin (3.5-5.0) g/dL Lipase (8-78) U/L COVID-19 (LIDIA) Negative (Negative) COVID-19 Clin Com See Note <Belle Spivey, [employer] SERVICER SUPERVISOR - Last Filed: 09/13/22 11:59> Lab Results 09/13/22 09/13/22 09/13/22 Range/Units 12:16 12:16 12:16 WBC 8.1 (4.8-10.8) X10*3/uL RBC 5.58 (4.60-5.80) X10*6/uL Hgb 16.0 (14.0-18.0) g/dl Hct 48.1 (42.0-52.0) % MCV 86.2 (80.0-98.0) fL MCH 28.7 (27.0-33.0) pg MCHC 33.3 (31.0-36.0) g/dl RDW 13.2 (11.0-16.0) % Plt Count 142 L (160-400) X10*3/uL MPV 11.1 (9.4-12.4) fL Immature Gran % (Auto) 0.4 (0.0-0.4) % Neut % (Auto) 71.6 (45-73) % Lymph % (Auto) 21.1 (20-40) % Bartholomew % (Auto) 4.6 (2-11) % Eos % (Auto) 1.7 (0-4) % Baso % (Auto) 0.6 (0-2) % Lymph # (Auto) 1.7 (1.2-4.9) X10*3/uL Bartholomew # (Auto) 0.4 (0.1-1.2) X10*3/uL Eos # (Auto) 0.1 (0.0-0.4) X10*3/uL Baso # (Auto) 0.1 (0.0-0.2) X10*3/uL Abs Immat Gran (auto) 0.03 (0.00-0.03) X10*3/uL Absolute Neuts (auto) 5.8 (2.0-8.3) x10*3/uL Absolute Nucleated RBC 0.000 (0.0-0.012) X10*3/uL Nucleated RBC % (auto) 0.0 (0.0-0.2) /100WBC PT 12.3 (10.0-13.1) SEC INR 1.1 (0.9-1.1) Sodium 138 (135-145) mmol/L Potassium 4.6 (3.3-5.1) mmol/L Chloride 104 (96-108) mmol/L Carbon Dioxide 25 (22-29) mmol/L Anion Gap 14 (12-20) BUN 17 H (9-16) mg/dL Creatinine 0.96 (0.5-1.4) mg/dL Estim Creat Clear Calc 92.1 Estimated GFR > 60 Random Glucose 232 H (60-115) mg/dL Calcium 9.4 (8.4-10.2) mg/dL Magnesium 1.7 (1.6-2.6) mg/dL Total Bilirubin 1.2 H (0.0-1.0) mg/dL Direct Bilirubin 0.3 (0.0-0.5) mg/dL AST 21 (5-37) U/L ALT 27 (0-40) U/L Alkaline Phosphatase 97 (39-117) U/L Troponin I High Sens (<3.5-35.0) ng/L Total Protein 6.9 (6.5-8.0) g/dL Albumin 4.3 (3.5-5.0) g/dL Lipase 20 (8-78) U/L COVID-19 (LIDIA) (Negative) COVID-19 Clin Com 09/13/22 09/13/22 Range/Units 12:16 12:16 WBC (4.8-10.8) X10*3/uL RBC (4.60-5.80) X10*6/uL Hgb (14.0-18.0) g/dl Hct (42.0-52.0) % MCV (80.0-98.0) fL MCH (27.0-33.0) pg MCHC (31.0-36.0) g/dl RDW (11.0-16.0) % Plt Count (160-400) X10*3/uL MPV (9.4-12.4) fL Immature Gran % (Auto) (0.0-0.4) % Neut % (Auto) (45-73) % Lymph % (Auto) (20-40) % Bartholomew % (Auto) (2-11) % Eos % (Auto) (0-4) % Baso % (Auto) (0-2) % Lymph # (Auto) (1.2-4.9) X10*3/uL Bartholomew # (Auto) (0.1-1.2) X10*3/uL Eos # (Auto) (0.0-0.4) X10*3/uL Baso # (Auto) (0.0-0.2) X10*3/uL Abs Immat Gran (auto) (0.00-0.03) X10*3/uL Absolute Neuts (auto) (2.0-8.3) x10*3/uL Absolute Nucleated RBC (0.0-0.012) X10*3/uL Nucleated RBC % (auto) (0.0-0.2) /100WBC PT (10.0-13.1) SEC INR (0.9-1.1) Sodium (135-145) mmol/L Potassium (3.3-5.1) mmol/L Chloride (96-108) mmol/L Carbon Dioxide (22-29) mmol/L Anion Gap (12-20) BUN (9-16) mg/dL Creatinine (0.5-1.4) mg/dL Estim Creat Clear Calc Estimated GFR Random Glucose (60-115) mg/dL Calcium (8.4-10.2) mg/dL Magnesium (1.6-2.6) mg/dL Total Bilirubin (0.0-1.0) mg/dL Direct Bilirubin (0.0-0.5) mg/dL AST (5-37) U/L ALT (0-40) U/L Alkaline Phosphatase (39-117) U/L Troponin I High Sens < 3.5 (<3.5-35.0) ng/L Total Protein (6.5-8.0) g/dL Albumin (3.5-5.0) g/dL Lipase (8-78) U/L COVID-19 (LIDIA) Negative (Negative) COVID-19 Clin Com See Note <Arely Jones DO - Last Filed: 09/13/22 16:30> Independent Interpretation I performed an independent interpretation of an: EKG and CT Scan <Arely Jones DO Last Filed: 09/13/22 16:30> Interpretation: Rate:48 Rhythm: sinus bradycardia [place]: normal Normal P waves. Normal EMILY. Normal QRS complex. poor R wave progression ST T wave : nonspecific no MICKY qTC: normal prior studies: no ischemia The study has been interpreted contemporaneously by me. . <Arely Jones DO - Last Filed: 09/13/22 16:30> External Record Review External record reviewed: Office record <Arely Jones DO Last Filed: 09/13/22 16:30> Prescription Management I considered prescription management with: Antibiotic and Other <Arely Jones DO Last Filed: 09/13/22 16:30> Discharge Plan Discharge Clinical Impression: Dizziness Otitis externa Qualifiers: Otitis externa type: diffuse Chronicity: acute Laterality: right Qualified Code(s): H60.311 - Diffuse otitis externa, right ear Otitis media Qualifiers: Otitis media type: unspecified Chronicity: acute Qualified Code(s): H66.90 - Otitis media, unspecified, unspecified ear <Belle Spivey CNP - Last Filed: 09/13/22 11:59> Patient Disposition: Home, Self-Care <Belle Spivey CNP - Last Filed: 09/13/22 11:59> Instructions: How to Use Ear Drops (ED), Ear Infection (ED), Dizziness (ED) <Belle Spivey CNP - Last Filed: 09/13/22 11:59> Additional Instructions: return to ED for any worsening symptoms or concerns return for numbness, weakness, chest pain, shortness of breath or any other concerns take a probiotic while on antibiotics - or eat a yogurt daily you will get loose stools incidental finding today showed a 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 - should be monitored by your doctor not the cause of today's symptoms avoid work until symptoms are resolved <Belle Spivey CNP - Last Filed: 09/13/22 11:59> Prescriptions: New meclizine 25 mg tablet 25 mg PO TID PRN (Reason: dizziness) Qty: 30 0RF ofloxacin 0.3 % drops 10 drp otic (ear) right DAILY 7 Days Qty: 5 0RF amoxicillin-pot clavulanate 875-125 mg tablet 1 tab PO BID Qty: 14 0RF No Action lisinopril 5 mg tablet 5 mg PO DAILY Qty: 90 3RF metoprolol succinate 25 mg tablet extended release 24 hr 25 mg PO DAILY atorvastatin 80 mg tablet 80 mg PO DAILY aspirin [Adult Low Dose Aspirin] 81 mg tablet,delayed release (DR/EC) 81 mg PO DAILY Trulicity 0.75 mg/0.5 mL pen injector subcut <Belle Spivey CNP - Last Filed: 09/13/22 11:59> Referrals: Richard Berman MD [Primary Care Provider] - 1 week <Belle Spivey CNP - Last Filed: 09/13/22 11:59> Interventions: ED Discharge Assessment Last Done: 09/13/22 15:18 <Belle Spivey CNP - Last Filed: 09/13/22 11:59> Discharge Date/Time: 09/13/22 15:20 <Belle Spivey, PUMP SERVICER SUPERVISOR - Last Filed: 09/13/22 11:59>
[2022-09-13 11:40] VITALS: BP 189/84; PULSE 52; RESP 20; TEMP 35.6; O2SAT 97; BMI 36.8
--- NOTE | 2022-09-13 12:05 | ECG_ITS ---
Test Reason : DIZZINESS Blood Pressure : / mmHG Vent. Rate : 048 BPM Atrial Rate : 048 BPM P-R Int : 172 ms QRS Dur : 080 ms QT Int : 484 ms P-R-T Axes : 031 -02 058 degrees QTc Int : 432 ms Sinus bradycardia Septal infarct (cited on or before 06-APR-2018) Abnormal ECG When compared with ECG of 06-APR-2018 16:21, Vent. rate has decreased BY [address] no longer elevated in Anterior leads Referred By: Arely Jones Electronically Signed By:Dante Grullon
[2022-09-13] MEDS: ondansetron HCL 4 MG/2 ML VIAL IVPUSH (12:11)
[2022-09-13] MEDS: 0.9 % Sodium Chloride 1,000 ML 999 ML IVCONT (12:12)
[2022-09-13 12:24] LABS: MANUAL DIFF FLAG NO
[2022-09-13 12:27] LABS: Basophils Absolute Auto 0.1 X10*3/uL (0.0-0.2); Basophils Percent Auto 0.6 % (0-2); Eosinophils Absolute Auto 0.1 X10*3/uL (0.0-0.4); Eosinophils Percent Auto 1.7 % (0-4); Hematocrit 48.1 % (42.0-52.0); Imm Gran Abs Auto 0.03 X10*3/uL (0.00-0.03); Imm Gran Pct Auto 0.4 % (0.0-0.4); Lymphocytes Absolute Auto 1.7 X10*3/uL (1.2-4.9); Lymphocytes Percent Auto 21.1 % (20-40); Mean Corpuscular HGB Conc 33.3 g/dl (31.0-36.0); Mean Corpuscular Hemoglobin 28.7 pg (27.0-33.0); Mean Corpuscular Volume 86.2 fL (80.0-98.0); Mean Platelet Volume 11.1 fL (9.4-12.4); Monocytes Absolute Auto 0.4 X10*3/uL (0.1-1.2); Monocytes Percent Auto 4.6 % (2-11); Neutrophils Absolute Auto 5.8 x10*3/uL (2.0-8.3); Neutrophils Percent Auto 71.6 % (45-73); Platelet Count 142 X10*3/uL (160-400); Red Blood Count 5.58 X10*6/uL (4.60-5.80); Red Cell Distribution Width 13.2 % (11.0-16.0); White Blood Count 8.1 X10*3/uL (4.8-10.8)
[2022-09-13 12:30] LABS: INTERNATIONAL NORM RATIO 1.1 (0.9-1.1); Prothrombin Time 12.3 SEC (10.0-13.1)
[2022-09-13 12:48] LABS: Alanine Aminotransferase 27 U/L (0-40); Albumin Level 4.3 g/dL (3.5-5.0); Alkaline Phosphatase 97 U/L (39-117); Anion Gap 14 (12-20); Aspartate Amino Transferase 21 U/L (5-37); Bilirubin Direct 0.3 mg/dL (0.0-0.5); Bilirubin Total 1.2 mg/dL (0.0-1.0); Blood Urea Nitrogen 17 mg/dL (9-16); Calcium 9.4 mg/dL (8.4-10.2); Carbon Dioxide 25 mmol/L (22-29); Chloride 104 mmol/L (96-108); Creatinine Clr Calc Pharmacy 92.1; Estimated Glomerular Filt Rate > 60; Glucose Random 232 mg/dL (60-115); Lipase 20 U/L (8-78); Magnesium 1.7 mg/dL (1.6-2.6); Potassium 4.6 mmol/L (3.3-5.1); Sodium 138 mmol/L (135-145); Total Protein 6.9 g/dL (6.5-8.0)
[2022-09-13 12:51] LABS: COVID-19 Test Negative (Negative); IDNOW Serial# BCCEAD1C
[2022-09-13 13:00] VITALS: BP 135/60; PULSE 50; RESP 16; O2SAT 100
[2022-09-13 13:03] LABS: Troponin-I High Sensitivity < 3.5 ng/L (<3.5-35.0)
[2022-09-13] MEDS: iohexoL 350 MG/ML 100 ML INFUS..BTL IV (13:14)
--- NOTE | 2022-09-13 13:16 | PC.NURSE ---
Patient reports forgetting his morning meds yesterday, took meds including metoprolol at bedtime, then repeated them this morning. Patient in CT scan at this time.
[2022-09-13] MEDS: Meclizine HCl 25 MG TABLET PO (13:26)
[2022-09-13 14:00] VITALS: BP 157/84; PULSE 56; RESP 18; O2SAT 99
== END 2022-09-13 15:20 | disposition home or self-care (01) ==
PROVIDERS: Emergency Provider Emergency Medicine; PCP Internal Medicine Medical Oncology
DX: R42 Dizziness and giddiness (principal); H60.311 Diffuse otitis externa, right ear; H66.91 Otitis media, unspecified, right ear; H91.91 Unspecified hearing loss, right ear; M54.2 Cervicalgia; I25.10 Atherosclerotic heart disease of native coronary artery without angina pectoris; Z20.822 Contact with and (suspected) exposure to COVID-19; Z20.828 Contact with and (suspected) exposure to other viral communicable diseases; Z79.899 Other long term (current) drug therapy
CPT/HCPCS: 70496; 70498; 80048; 80076; 83690; 83735; 84484; 85025; 85610; 87635; 93005; 96361; 96374; 99284; 99285; J2405; Q9967

== ENCOUNTER 2022-11-01 08:27 | Outpatient (REF) | payer OTHER, SELFPAY ==
[2022-11-01 09:31] LABS: Glucose Fasting 124 mg/dL (60-99)
[2022-11-01 10:19] LABS: Estimated Average Glucose 169 mg/dL; Hemoglobin A1c % 7.5 %
[2022-11-01 10:34] LABS: Creatinine Urine 96.13 mg/dL; Microalbum/Creatinine Ratio Ur 16.6 ug/mg cr
== END 2022-11-01 08:28 | disposition home or self-care (01) ==
LOC: HO.LAB 08:27
PROVIDERS: PCP Internal Medicine Medical Oncology; Visit Provider Internal Medicine Medical Oncology
DX: E11.9 Type 2 diabetes mellitus without complications (principal)
CPT/HCPCS: 36415; 82043; 82947; 83036

== ENCOUNTER → 2022-12-19 15:53 | Outpatient (BNVA) | payer OTHER, SELFPAY | PROVIDERS: PCP Internal Medicine Medical Oncology; Referring Provider Internal Medicine Medical Oncology; Visit Provider Internal Medicine Cardiovascular Disease ==

== ENCOUNTER → 2023-01-11 11:47 | Outpatient (BNVA) | payer OTHER, SELFPAY | PROVIDERS: PCP Internal Medicine Medical Oncology; Visit Provider Nurse Practitioner Family ==

== ENCOUNTER 2023-02-06 08:56 | Outpatient (REF) | payer OTHER, SELFPAY | END 2023-02-06 08:57 | disposition home or self-care (01) | LOC: HO.LAB 08:56 | PROVIDERS: PCP Internal Medicine Medical Oncology; Visit Provider Internal Medicine Medical Oncology | DX: E66.01 Morbid (severe) obesity due to excess calories (principal); E78.5 Hyperlipidemia, unspecified; N40.0 Benign prostatic hyperplasia without lower urinary tract symptoms; E11.9 Type 2 diabetes mellitus without complications; I25.10 Atherosclerotic heart disease of native coronary artery without angina pectoris; D69.6 Thrombocytopenia, unspecified; Z87.891 Personal history of nicotine dependence | CPT/HCPCS: 36415; 80053; 80061; 82043; 83036; 85025 ==

== ENCOUNTER 2023-03-28 16:28 | Outpatient (REF) | payer OTHER, SELFPAY ==
--- NOTE | ~2023-03-28 | MR_ITS ---
EXAMINATION: MR BRAIN WITHOUT AND WITH CONTRAST CLINICAL INFORMATION: Sudden hearing loss, right ear. COMPARISON: None available. TECHNIQUE: Multiplanar, multisequence imaging of the brain was performed before and after the intravenous administration of 10 mL of Gadavist. FINDINGS: The inner ear structures including the cochlea, vestibules, and semicircular canals exhibit preserved CSF signal intensity with no pathologic enhancement. The vestibular aqueducts are not enlarged. Cranial nerves VII and VIII complexes are normal in morphology. No enhancing cerebellopontine angle/retrocochlear lesion. There is no intracranial mass or abnormal intracranial enhancement. There is no acute infarction. There is no intracranial hemorrhage or extra axial collection. The ventricles, sulci, and basilar cisterns are normal in size and configuration. Mild nonspecific foci of T2/FLAIR hyperintensity are seen within the cerebral white matter. The extra cranial structures are within normal limits. MR/MR head/brain wo/w con IMPRESSION: - No vestibular schwannoma or retrocochlear lesion. - No mass lesion, acute infarction, or abnormal intracranial enhancement.
[2023-03-28 17:22] LABS: Blood Urea Nitrogen 20 mg/dL (9-16); Estimated Glomerular Filt Rate > 60
[2023-03-28] MEDS: gadobutroL 10 ML VIAL IVPUSH (18:43)
== END 2023-03-28 16:29 | disposition home or self-care (01) ==
LOC: HO.MRI 16:28
PROVIDERS: PCP Internal Medicine Medical Oncology; Visit Provider Otolaryngology
DX: H91.21 Sudden idiopathic hearing loss, right ear (principal)
CPT/HCPCS: 36415; 70553; 82565; 84520; A9585

== ENCOUNTER 2023-05-08 08:29 | Outpatient (REF) | payer OTHER, SELFPAY ==
[2023-05-08 09:28] LABS: Alanine Aminotransferase 16 U/L (0-40); Albumin Level 4.2 g/dL (3.5-5.0); Alkaline Phosphatase 78 U/L (39-117); Anion Gap 15 (12-20); Aspartate Amino Transferase 19 U/L (5-37); Bilirubin Total 1.4 mg/dL (0.0-1.0); Blood Urea Nitrogen 20 mg/dL (9-16); Calcium 9.3 mg/dL (8.4-10.2); Carbon Dioxide 22 mmol/L (22-29); Chloride 106 mmol/L (96-108); Cholesterol 137 mg/dL (<200); Estimated Glomerular Filt Rate > 60; Glucose Fasting 148 mg/dL (60-99); HDL Cholesterol 43 mg/dL (>40); LDL Cholesterol Calculated 78 mg/dL (<100); Potassium 4.7 mmol/L (3.3-5.1); Sodium 138 mmol/L (135-145); Triglycerides 83 mg/dL (<150)
== END 2023-05-08 08:30 | disposition home or self-care (01) ==
LOC: HO.LAB 08:29
PROVIDERS: PCP Internal Medicine Medical Oncology; Visit Provider Internal Medicine Medical Oncology
DX: D69.6 Thrombocytopenia, unspecified (principal); E78.5 Hyperlipidemia, unspecified; I25.10 Atherosclerotic heart disease of native coronary artery without angina pectoris; E11.9 Type 2 diabetes mellitus without complications
CPT/HCPCS: 36415; 80053; 80061; 83036; 85025

== ENCOUNTER → 2023-07-13 09:28 | Day surgery (SDC) | payer OTHER, SELFPAY ==
[2023-07-11 14:26] VITALS: BMI 37.1
--- NOTE | 2023-07-12 09:32 | HO.ANESPROP2 ---
Documented by User: Edwige Ryan NP 07/12/23 09:38 HPI - Anesthesia Eval Consult details Narrative: 68yo M for Colonoscopy Follows [facility] [place] cardiology for hx anterior wall ID with ischemic cardiomyopathy with EF 25% and apical thrombus. He was treated with Plavix and Eliquis with subsequent improvement in LVEF and resolution of the apical thrombus. He was on aspirin Plavix for a total 1 year. Plavix has been stopped. Last office visit 11/2022. Clinically stable with 1 year f/u. [facility] Active Problems Active Problems: All Active Problems (Updated 07/11/23 @ 14:21 by Laura Joseph RN) Stable angina (Acute) Coronary artery disease (Acute) Past Medical History Medical History (Updated 07/11/23 @ 14:21 by Laura Joseph RN) Left ventricular thrombosis Diabetes Thrombocytopenia Carpal tunnel syndrome Fracture of right lower extremity Umbilical hernia Hyperlipidemia Coronary artery disease Family History Family History Mother Hx of breast cancer Surgical History Surgical History History of shoulder surgery (~2010) Hx of right knee surgery Hx of heart artery stent (~03/2018) Hx of colonoscopy (~02/14/13) History of colonoscopy with polypectomy (~02/13/08) Social History Social History Alcohol intake: never Patient Tobacco Use Status: Former Tobacco user Quit Date: 1981 Years Smoked: 20 +/- Use of substances other than those prescribed or required for medical reasons: No Are you DNR?: No Advance Directives: No Advance Directives Information Provided: Yes Meds Allergies Allergy/AdvReac Type Severity Reaction Status Date / Time No Known Allergies Allergy Mild N/A Verified 01/11/23 12:09 Home Medications Medication Instructions Recorded Confirmed Last Taken Type aspirin 81 mg tablet,delayed 81 mg PO DAILY 09/23/20 07/11/23 Unknown History release (Adult Low Dose Aspirin) atorvastatin 80 mg tablet 80 mg PO DAILY 09/23/20 07/11/23 Unknown History metoprolol succinate 25 mg 25 mg PO DAILY 09/23/20 07/11/23 Unknown History tablet,extended release 24 hr loratadine 10 mg tablet (Claritin) 10 mg PO DAILY 12/19/22 12/19/22 Unknown History metformin 500 mg tablet 1,000 mg PO BID 07/11/23 07/11/23 Unknown History Exam Height,Weight and Vital Signs: Height 5 ft 8 in Weight 110.677 kg Pertinent Lab Results Pertinent Lab Results: Laboratory Tests 05/08/23 08:44 WBC 5.9 Hgb 15.2 Hct 45.3 Plt Count 139 L Sodium 138 Potassium 4.7 Chloride 106 Carbon Dioxide 22 BUN 20 H Creatinine 0.90 Narrative Narrative: EKG 08/2022 Vent. Rate : 048 BPM Atrial Rate : 048 BPM P-R Int : 172 ms QRS Dur : 080 ms QT Int : 484 ms P-R-T Axes : 031 -02 058 degrees QTc Int : 432 ms Sinus bradycardia Septal infarct (cited on or before 06-APR-2018) Abnormal ECG When compared with ECG of 06-APR-2018 16:21, Vent. rate has decreased BY [address] no longer elevated in Anterior leads Assessment and Plan Assessment Anesthesia Assessment: Chart Reviewed Documented by User: Salo Gonzalez MD 07/13/23 09:59 [facility] Past Medical History Medical History (Updated 07/11/23 @ 14:21 by Laura Joseph RN) Left ventricular thrombosis Diabetes Thrombocytopenia Carpal tunnel syndrome Fracture of right lower extremity Umbilical hernia Hyperlipidemia Coronary artery disease Family History Family History Mother Hx of breast cancer Family history of problems with anesthesia: No Surgical History Surgical History History of shoulder surgery (~2010) Hx of right knee surgery Hx of heart artery stent (~03/2018) Hx of colonoscopy (~02/14/13) History of colonoscopy with polypectomy (~02/13/08) History of Problems with Anesthesia: No Social History Social History Alcohol intake: never Patient Tobacco Use Status: Former Tobacco user Quit Date: 1981 Years Smoked: 20 +/- Use of substances other than those prescribed or required for medical reasons: No Are you DNR?: No Advance Directives: No Advance Directives Information Provided: Yes Meds Allergies Allergy/AdvReac Type Severity Reaction Status Date / Time No Known Allergies Allergy Mild N/A Verified 01/11/23 12:09 Home Medications Medication Instructions Recorded Confirmed Last Taken Type aspirin 81 mg tablet,delayed 81 mg PO DAILY 09/23/20 07/11/23 Unknown History release (Adult Low Dose Aspirin) atorvastatin 80 mg tablet 80 mg PO DAILY 09/23/20 07/11/23 Unknown History metoprolol succinate 25 mg 25 mg PO DAILY 09/23/20 07/11/23 Unknown History tablet,extended release 24 hr loratadine 10 mg tablet (Claritin) 10 mg PO DAILY 12/19/22 12/19/22 Unknown History metformin 500 mg tablet 1,000 mg PO BID 07/11/23 07/11/23 Unknown History Exam Airway Mallampati Class: III TM Dist: >3cm Neck ROM: Limited Heart: rrr Lungs: cta Assessment and Plan Assessment Anesthesia Assessment: Anesthesia Plan Discussed Final Anesthetic Review Family History of Problems with Anesthesia: No History of Problems with Anesthesia: No NPO: Yes ASA Class: III Final Preanesthetic Review: No Changes in Pt Med Stat, Meds/Allgs Chart Reviewed, Consent Obtained/Reviewed and Anes Risks/Benef Reviewed Patient Risk: Intermediate Procedure Risk: Low Anesthetic Plan Anesthetic Plan: MAC: and Agree w/ Assess. and Plan Disposition: Standard PACU
[2023-07-13] MEDS: Sodium Phosphate,Mono-Dibasic 133 ML ENEMA PR ×2 (10:00→10:48)
[2023-07-13 10:27] VITALS: BP 165/75; PULSE 55; RESP 16; TEMP 36.2; O2SAT 98
--- NOTE | 2023-07-13 10:49 | PC.NURSE ---
Pt reports poor prep. Stool dark brown stool; no liquid. Pt reports this happened with the last prep and the results were inconclusive. Dr Whitney notified and Enema was administered x2. Pt continued to have poor results. Per Dr Whitney procedure to be rescheduled.
[2023-07-13 11:39] LABS: Glucose, Whole Blood 137 mg/dL (60-115)
== END ==
PROVIDERS: PCP Internal Medicine Medical Oncology; Visit Provider Internal Medicine Gastroenterology
DX: Z12.11 Encounter for screening for malignant neoplasm of colon (principal); Z53.8 Procedure and treatment not carried out for other reasons; E11.9 Type 2 diabetes mellitus without complications; Z79.899 Other long term (current) drug therapy
CPT/HCPCS: 82947

== ENCOUNTER 2023-08-15 08:32 | Outpatient (REF) | payer OTHER, SELFPAY ==
[2023-08-15 08:49] LABS: MANUAL DIFF FLAG NO
[2023-08-15 09:38] LABS: Basophils Absolute Auto 0.1 X10*3/uL (0.0-0.2); Eosinophils Absolute Auto 0.2 X10*3/uL (0.0-0.4); Hematocrit 48.3 % (42.0-52.0); Hemoglobin 15.9 g/dl (14.0-18.0); Imm Gran Abs Auto 0.02 X10*3/uL (0.00-0.03); Imm Gran Pct Auto 0.4 % (0.0-0.4); Lymphocytes Absolute Auto 1.6 X10*3/uL (1.2-4.9); Lymphocytes Percent Auto 30.5 % (20-40); Mean Corpuscular HGB Conc 32.9 g/dl (31.0-36.0); Mean Corpuscular Hemoglobin 28.8 pg (27.0-33.0); Mean Corpuscular Volume 87.5 fL (80.0-98.0); Mean Platelet Volume 12.1 fL (9.4-12.4); Monocytes Absolute Auto 0.5 X10*3/uL (0.1-1.2); Monocytes Percent Auto 8.9 % (2-11); Neutrophils Absolute Auto 2.9 x10*3/uL (2.0-8.3); Neutrophils Percent Auto 56.2 % (45-73); Platelet Count 125 X10*3/uL (160-400); Red Blood Count 5.52 X10*6/uL (4.60-5.80); Red Cell Distribution Width 13.2 % (11.0-16.0); White Blood Count 5.1 X10*3/uL (4.8-10.8)
[2023-08-15 09:50] LABS: Estimated Average Glucose 183 mg/dL
[2023-08-15 10:12] LABS: Alanine Aminotransferase 20 U/L (0-40); Albumin Level 4.3 g/dL (3.5-5.0); Alkaline Phosphatase 84 U/L (39-117); Anion Gap 13 (12-20); Aspartate Amino Transferase 17 U/L (5-37); Bilirubin Total 1.3 mg/dL (0.0-1.0); Blood Urea Nitrogen 20 mg/dL (9-16); Calcium 9.8 mg/dL (8.4-10.2); Carbon Dioxide 27 mmol/L (22-29); Chloride 104 mmol/L (96-108); Cholesterol 149 mg/dL (<200); Estimated Glomerular Filt Rate > 60; Glucose Fasting 155 mg/dL (60-99); HDL Cholesterol 46 mg/dL (>40); LDL Cholesterol Calculated 83 mg/dL (<100); Sodium 139 mmol/L (135-145); Total Protein 7.4 g/dL (6.5-8.0); Triglycerides 102 mg/dL (<150)
[2023-08-15 11:09] LABS: Creatinine Urine 125.23 mg/dL; Microalbum/Creatinine Ratio Ur 15.1 ug/mg cr (<30)
== END 2023-08-15 08:33 | disposition home or self-care (01) ==
LOC: HO.LAB 08:32
PROVIDERS: PCP Internal Medicine Medical Oncology; Visit Provider Internal Medicine Medical Oncology
DX: E11.9 Type 2 diabetes mellitus without complications (principal); D69.6 Thrombocytopenia, unspecified; H81.01 Meniere's disease, right ear; Z87.891 Personal history of nicotine dependence
CPT/HCPCS: 36415; 80053; 80061; 82043; 82570; 83036; 85025

== ENCOUNTER 2023-12-02 08:24 | Outpatient (REF) | payer OTHER, SELFPAY ==
--- NOTE | ~2023-12-02 | XR_ITS ---
EXAMINATION: XR HIP, LEFT CLINICAL INFORMATION: Left hip pain. COMPARISON: None available. TECHNIQUE: Two views of the left hip. FINDINGS: Alignment is anatomic. Mild axial cartilage space loss with hypertrophic lipping. No displaced fracture or dislocation. XR/XR hip LT min 2V IMPRESSION: Mild degenerative changes of the left hip.
[2023-12-02 08:42] LABS: MANUAL DIFF FLAG NO
[2023-12-02 09:37] LABS: Basophils Absolute Auto 0.1 X10*3/uL (0.0-0.2); Basophils Percent Auto 0.9 % (0-2); Eosinophils Absolute Auto 0.2 X10*3/uL (0.0-0.4); Eosinophils Percent Auto 3.8 % (0-4); Hematocrit 45.3 % (42.0-52.0); Hemoglobin 15.2 g/dl (14.0-18.0); Imm Gran Abs Auto 0.02 X10*3/uL (0.00-0.03); Imm Gran Pct Auto 0.3 % (0.0-0.4); Lymphocytes Absolute Auto 1.9 X10*3/uL (1.2-4.9); Mean Corpuscular HGB Conc 33.6 g/dl (31.0-36.0); Mean Corpuscular Hemoglobin 29.1 pg (27.0-33.0); Mean Corpuscular Volume 86.6 fL (80.0-98.0); Mean Platelet Volume 11.4 fL (9.4-12.4); Monocytes Absolute Auto 0.5 X10*3/uL (0.1-1.2); Monocytes Percent Auto 8.9 % (2-11); Neutrophils Absolute Auto 3.2 x10*3/uL (2.0-8.3); Neutrophils Percent Auto 54.1 % (45-73); Platelet Count 128 X10*3/uL (160-400); Red Blood Count 5.23 X10*6/uL (4.60-5.80); Red Cell Distribution Width 13.6 % (11.0-16.0); White Blood Count 5.9 X10*3/uL (4.8-10.8)
[2023-12-02 09:59] LABS: Alanine Aminotransferase 20 U/L (0-40); Albumin Level 4.2 g/dL (3.5-5.0); Alkaline Phosphatase 75 U/L (39-117); Anion Gap 14 (12-20); Aspartate Amino Transferase 17 U/L (5-37); Blood Urea Nitrogen 18 mg/dL (9-16); Calcium 9.8 mg/dL (8.4-10.2); Carbon Dioxide 24 mmol/L (22-29); Chloride 105 mmol/L (96-108); Cholesterol 147 mg/dL (<200); Estimated Glomerular Filt Rate > 60; Glucose Random 137 mg/dL (60-115); HDL Cholesterol 44 mg/dL (>40); LDL Cholesterol Calculated 84 mg/dL (<100); Potassium 4.4 mmol/L (3.3-5.1); Sodium 139 mmol/L (135-145); Total Protein 7.1 g/dL (6.5-8.0); Triglycerides 97 mg/dL (<150)
[2023-12-02 10:01] LABS: Estimated Average Glucose 174 mg/dL; Hemoglobin A1c % 7.7 % (<6.0)
[2023-12-02 10:05] LABS: Creatinine Urine 102.93 mg/dL; Microalbum/Creatinine Ratio Ur 10.6 ug/mg cr (<30)
[2023-12-02 10:26] LABS: Prostate Specific Antigen 0.82 ng/mL (<0.05-4.0)
== END 2023-12-02 08:25 | disposition home or self-care (01) ==
LOC: HO.XRAY 08:24
PROVIDERS: PCP Internal Medicine Medical Oncology; Visit Provider Internal Medicine Medical Oncology
DX: E11.9 Type 2 diabetes mellitus without complications (principal); E78.5 Hyperlipidemia, unspecified; E66.01 Morbid (severe) obesity due to excess calories; Z12.5 Encounter for screening for malignant neoplasm of prostate; Z68.35 Body mass index [BMI] 35.0-35.9, adult
CPT/HCPCS: 36415; 73502; 80053; 80061; 82043; 82570; 83036; 84153; 85025

== ENCOUNTER → 2024-02-14 09:10 | Outpatient (BNVA) | payer OTHER, SELFPAY | PROVIDERS: PCP Internal Medicine Medical Oncology; Visit Provider Internal Medicine Cardiovascular Disease ==

== ENCOUNTER 2024-04-06 09:02 | Outpatient (REF) | payer OTHER, SELFPAY ==
[2024-04-06 09:22] LABS: MANUAL DIFF FLAG NO
[2024-04-06 10:16] LABS: Estimated Average Glucose 171 mg/dL; Hemoglobin A1c % 7.6 % (<6.0)
[2024-04-06 10:20] LABS: Basophils Percent Auto 0.4 % (0-2); Eosinophils Absolute Auto 0.2 X10*3/uL (0.0-0.4); Eosinophils Percent Auto 3.5 % (0-4); Hematocrit 44.5 % (42.0-52.0); Hemoglobin 14.8 g/dl (14.0-18.0); Imm Gran Abs Auto 0.01 X10*3/uL (0.00-0.03); Imm Gran Pct Auto 0.2 % (0.0-0.4); Lymphocytes Absolute Auto 1.3 X10*3/uL (1.2-4.9); Lymphocytes Percent Auto 27.6 % (20-40); Mean Corpuscular HGB Conc 33.3 g/dl (31.0-36.0); Mean Corpuscular Hemoglobin 28.6 pg (27.0-33.0); Mean Corpuscular Volume 85.9 fL (80.0-98.0); Mean Platelet Volume 11.9 fL (9.4-12.4); Monocytes Absolute Auto 0.4 X10*3/uL (0.1-1.2); Monocytes Percent Auto 7.8 % (2-11); Neutrophils Absolute Auto 2.9 x10*3/uL (2.0-8.3); Neutrophils Percent Auto 60.5 % (45-73); Platelet Count 127 X10*3/uL (160-400); Red Blood Count 5.18 X10*6/uL (4.60-5.80); Red Cell Distribution Width 13.6 % (11.0-16.0); White Blood Count 4.9 X10*3/uL (4.8-10.8)
[2024-04-06 11:01] LABS: Alanine Aminotransferase 20 U/L (0-40); Albumin Level 4.1 g/dL (3.5-5.0); Alkaline Phosphatase 74 U/L (39-117); Anion Gap 12 (12-20); Aspartate Amino Transferase 18 U/L (5-37); Blood Urea Nitrogen 18 mg/dL (9-16); Calcium 9.3 mg/dL (8.4-10.2); Carbon Dioxide 23 mmol/L (22-29); Chloride 105 mmol/L (96-108); Cholesterol 122 mg/dL (<200); Estimated Glomerular Filt Rate > 60; Glucose Fasting 138 mg/dL (60-99); HDL Cholesterol 44 mg/dL (>40); LDL Cholesterol Calculated 63 mg/dL (<100); Potassium 4.2 mmol/L (3.3-5.1); Sodium 136 mmol/L (135-145); Total Protein 6.9 g/dL (6.5-8.0); Triglycerides 79 mg/dL (<150)
== END 2024-04-06 09:03 | disposition home or self-care (01) ==
LOC: HO.LAB 09:02
PROVIDERS: PCP Internal Medicine Medical Oncology; Visit Provider Internal Medicine Medical Oncology
DX: E11.9 Type 2 diabetes mellitus without complications (principal)
CPT/HCPCS: 36415; 80053; 80061; 83036; 85025

== ENCOUNTER 2024-04-23 15:04 | Outpatient (AMB) | payer OTHER, SELFPAY ==
[2024-04-23 15:10] VITALS: BP 130/78; PULSE 57; BMI 34.9
--- NOTE | 2024-04-23 15:10 | MHC.OFFVIS ---
Vital Signs 04/23/24 15:10 Height 5 ft 8 in Weight 229 lb 11.547 oz BMI 34.9 BP 130/78 Blood Pressure Location Lt brachial Position Sitting Pulse 57 Intake Visit Reasons: clearance Toe amputee on 05/10/24 Roll Cleaner Required: No Accompanied by: Self / Same As Patient Allergies No Known Allergies Allergy (Mild, Verified 04/23/24 15:25) N/A Medication List - Last Reconciled 04/23/24 by Phyllis Gofdrey NP aspirin (Adult Low Dose Aspirin) 81 mg PO DAILY atorvastatin 80 mg PO DAILY bisacodyl (Dulcolax (bisacodyl)) 20 mg (4 x 5 mg) PO ONCE 1 day docusate sodium 100 mg PO BEDTIME lisinopril 5 mg PO DAILY loratadine (Claritin) 10 mg PO DAILY metformin 1,000 mg PO ONCE metoprolol succinate ER 25 mg PO DAILY polyethylene glycol 3350 (Miralax) 238 grams PO ONCE 1 day HPI Comments Details: 69-year-old male presents today for preoperative appointment for a knee surgery. He is due for surgery on 05/10/2024. Dr. Alcides Eubanks at [facility]. 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 He denies any other chest discomforts, shortness of breath, palpitations, or swelling. He reports compliance with his medication. He reports his diabetes has been much better controlled and had had medication reduction. He has been trying to lose weight. He is currently not very physically active due to knee pain. [facility] Medical History Meniere disease Left ventricular thrombosis Diabetes Thrombocytopenia Carpal tunnel syndrome Fracture of right lower extremity Umbilical hernia Hyperlipidemia Coronary artery disease Surgical History History of shoulder surgery (~2010) Hx of right knee surgery Hx of heart artery stent (~03/2018) Hx of colonoscopy (~02/14/13) History of colonoscopy with polypectomy (~02/13/08) Family History Mother Hx of breast cancer Social History (Updated 04/23/24 @ 15:27 by Phyllis Godfrey NP) Alcohol intake: never Patient Tobacco Use Status: Former Tobacco user Years Smoked: 20 +/- Review of Systems Const Denies chills, Denies fatigue, Denies fever(s), Denies weight gain and Denies weight loss ENT Denies dizziness Card Denies chest pain, Denies leg edema, Denies lightheadedness, Denies palpitations, Denies dyspnea on exertion, Denies orthopnea and Denies other Resp Denies cough and Denies dyspnea on exertion GI Denies hematochezia and Denies change in stool character Musc Denies abnormal gait, Denies muscle weakness, Denies numbness, Denies radiating pain into limb and Denies tingling Neuro Denies abnormal gait, Denies dizziness, Denies numbness and Denies tingling Endo Denies fatigue and Denies palpitations Physical Exam Const General: healthy appearing and no acute distress Orientation/consciousness: patient oriented x3 HEENT Head: Yes normal to inspection Eyes General: appearance normal, both eyes and all related structures Neck Neck: Yes normal visual inspection Chest Chest palpation & inspection: normal inspection of the chest Resp Effort & Inspection: normal respiratory effort Auscultation: clear to auscultation bilaterally Cardio Jugular venous distension: no JVD Palpation: normal PMI Rate: regular rate Rhythm: regular rhythm Heart sounds: S1 normal heart sound present, S2 normal heart sound present, no click, no gallops, no murmurs and no rubs GI Inspection: Yes normal to inspection Palpation (GI): Soft to palpation Skin General skin exam: no rashes or lesions noted Neuro General: patient oriented x3 Extrem General: Yes normal to inspection Psych Appearance: grossly normal Office Procedures EKG Details: EKG today. Sinus bradycardia. Nonspecific ST abnormality. Rate 57 beats per minute. QRS 47 milliseconds. QTC 412 milliseconds. NJ 154 milliseconds. [id number], Complete Assessment & Plan Assessment & Plan (1) Coronary artery disease: Code(s): I25.10 - Atherosclerotic heart disease of [place] coronary artery without angina pectoris Category: Medical Qualifiers: Coronary Disease-Associated Artery/Lesion type: [place] artery [place] vs. transplanted heart: [place] heart Associated angina: without angina Qualified Code(s): I25.10 - Atherosclerotic heart disease of [place] coronary artery without angina pectoris (2) Pre-operative cardiovascular examination: Code(s): Z01.810 - Encounter for preprocedural cardiovascular examination Category: Medical Plan Reports no recurrent anginal symptoms. Had some musculoskeletal pain prior. He was evaluated by his primary care doctor. We will do cardiac stress test with nuclear imaging and echocardiogram to assess for ischemic and structural changes. He is on low-dose aspirin, atorvastatin, lisinopril, and metoprolol succinate. He had blood work on 04/06/2024 which revealed his A1c was 7.6 and his LDL cholesterol 63. He is due for his 1 year follow up with Dr. Grullon. We will schedule that today. We will call with the results and clearance. Emergency care if needed. Orders: Orders CA stress test Today I25.10 - Atherosclerotic heart disease of [place] coronary artery without angina pectoris, Z01.810 - Encounter for preprocedural cardiovascular examination NM cardiolite stress test Today I25.10 - Atherosclerotic heart disease of [place] coronary artery without angina pectoris, Z01.810 - Encounter for preprocedural cardiovascular examination CA echo transthoracic complete Today I25.10 - Atherosclerotic heart disease of [place] coronary artery without angina pectoris, Z01.810 - Encounter for preprocedural cardiovascular examination Coding Level of Care Code Est Pt Level 4 (15212) Diagnoses Coronary artery disease involving [place] coronary artery of [place] heart without angina pectoris I25.10 Coronary Disease-Associated Artery/Lesion type: [place] artery [place] vs. transplanted heart: [place] heart Associated angina: without angina Pre-operative cardiovascular examination Z01.810 CPT Codes EKG - CPT: [id number], Complete ([id number])
== END 2024-04-23 16:09 | disposition home or self-care (01) ==
PROVIDERS: PCP Internal Medicine Medical Oncology; Visit Provider Nurse Practitioner
DX: I25.10 Atherosclerotic heart disease of native coronary artery without angina pectoris (principal); Z01.810 Encounter for preprocedural cardiovascular examination
CPT/HCPCS: 93010; 99214

== ENCOUNTER → 2024-04-23 15:04 | Outpatient (BNVA) | payer OTHER, SELFPAY | PROVIDERS: PCP Internal Medicine Medical Oncology; Visit Provider Nurse Practitioner | DX: Z01.810 Encounter for preprocedural cardiovascular examination (principal); I25.10 Atherosclerotic heart disease of native coronary artery without angina pectoris | CPT/HCPCS: 93005 ==

== ENCOUNTER → 2024-04-26 09:05 | Outpatient (REF) | payer OTHER, SELFPAY ==
--- NOTE | 2024-04-26 09:10 | CA_ITS ---
Transthoracic Echocardiogram Patient (Last, First, Middle): Alfonso Mane D Gender: Male Date of : 1955 Age: 69 Procedure Date: 04/26/2024 Procedure Type: Transthoracic Echocardiogram Location: OP Height: 172.72 cm Weight: 102.51 kg BSA: 2.15 m2 Heart Rate: 49 bpm BP: 122 / 76 mmHg Sound Recording Technician: TO Referring MD: Phyllis Godfrey NP Symptoms: I25.10 - Atherosclerotic heart disease of [place] coronary artery without... Study Quality: Fair ECG Rhythm: Bradycardia Conclusions: - The left ventricular systolic function is low normal. The calculated ejection fraction is 54% by biplane method. - No obvious valvular pathology seen on this study. - Large plaque is seen in the sino tubular ridge. Findings Left Ventricle Normal left ventricular cavity size. There is normal left ventricular wall thickness. The left ventricular systolic function is low normal. The calculated ejection fraction is 54% by biplane method. There is no evidence of regional wall motion abnormalities. Diastolic function is normal for age. Right Ventricle Mildly increased right ventricular cavity size. There is normal right ventricular systolic function. Atria The left atrium is mildly dilated. The right atrium is normal in size. Aortic Valve There is a normal trileaflet aortic valve. There is no aortic valve stenosis. There is no aortic valve regurgitation. Mitral Valve The mitral valve appears normal. There is trace mitral valve regurgitation. There is no mitral valve stenosis. Pulmonic Valve The pulmonic valve is likely normal. Tricuspid Valve Normal tricuspid valve structure. There is trace tricuspid valve regurgitation. There is no evidence of pulmonary hypertension. Great Vessels The asc aorta is normal in size. Large plaque is seen in the sino tubular ridge. Venous The inferior vena cava was not well visualized. Pericardium/Pleural There is no evidence of pericardial effusion. Prior Study Comparison Changes noted compared to prior study dated: 07/16/2018. LVEF slightly lower than prior study. Recommendations, Care & Conclusions No obvious valvular pathology seen on this study. Measurements 2D Linear Measurements IVSd: 0.93 0.6-0.9/0.6-1.0 cm LVIDd: 5.26 3.9-5.3/4.2-5.9 cm LVIDd Index: 2.45 2.4-3.2/2.2-3.1 cm/m2 LVIDs: 3.60 2.0-3.6 cm LVPWd: 0.77 0.7-1.1 cm LA Diam: 3.70 2.7-3.8/3.0-4.0 cm LAIDs Index: 1.72 1.5-2.3 cm/m2 LV Mass: 199.14 67-162/88-224 g LV Mass Index: 92.62 43-95/49-115 g/m2 LVOT Diam: 2.40 3.0+(-)1.3 cm 2D Systolic Function EF 4C: 55.40 >55% EF 2C: 55.20 >55% EF BiP: 54.30 >55% Mitral Valve MV Pk E: 0.48 MV PK A: 0.48 MV Decel Time: 263.00 E/A: 1.00 E'Lateral: 6.96 E'Medial: 4.90 E/E' Med: 9.70 E/E' Lat: 6.80 PHT: 77.00 MVA PHT: 2.86 Decel Benson: 1.81 Aortic Valve AoV Pk Alexandru: 1.45 AoV Mn Alexandru: 0.99 AoV VTI: 0.32 AoV Pk Grad: 8.00 Aov Mn Grad: 4.00 DARÍO Cont.VTI: 2.91 LVOT LVOT Pk Alexandru: 0.89 LVOT Mn Alexandru: 0.64 LVOT VTI: 0.21 LVOT Pk Grad: 3.00 LVOT Mn Grad: 2.00 LVOT Diam: 2.40 LVOT Area: 4.52 Diastolic Function MV Pk E: 0.48 MV Pk A: 0.48 E/A: 1.00 E'Medial: 4.90 E/E' Med: 9.70 E' Laterial: 6.96 E/E' Lat: 6.80 Right Ventricle TAPSE (mm): 27.20 TVS' Alexandru: 12.30 Great Vessels Aorta Sinus of Valsalva: 3.29 2.0-3.5 cm Ao Asc: 3.30 2.1-3.4 cm Updated in Other Vendor System with Status of Final Al Eldridge MD electronically signed on 04/27/2024 12:32:17 PM with status of Final
== END ==
LOC: HO.CARD 09:05
PROVIDERS: PCP Internal Medicine Medical Oncology; Visit Provider Nurse Practitioner
DX: Z01.810 Encounter for preprocedural cardiovascular examination (principal); I25.10 Atherosclerotic heart disease of native coronary artery without angina pectoris
CPT/HCPCS: 93306

== ENCOUNTER → 2024-04-26 09:10 | Outpatient (BNV) | payer OTHER, SELFPAY | PROVIDERS: PCP Internal Medicine Medical Oncology; Visit Provider Internal Medicine | DX: I25.10 Atherosclerotic heart disease of native coronary artery without angina pectoris (principal); R93.1 Abnormal findings on diagnostic imaging of heart and coronary circulation | CPT/HCPCS: 93306 ==

== ENCOUNTER 2024-08-07 14:04 | Outpatient (AMB) | payer OTHER, SELFPAY ==
--- OUTSIDE RECORDS SUMMARY | 2024-08-07 14:10 | XMS_ITS | Continuity of Care Document ---
Author Organization [facility] [address] [place] [address] Phone [phone] Care Team Providers Care Tax Accountant Name Role Phone Richard Berman M.D. Care Team Information Receive r [phone] Problems Active Problems Provider Date Diabetes mellitus Sam Madsen M.D. Onset: 1 08/13/2021 Gastroesophageal reflux disease Sam Madsen M.D. Onset: 06/13/2022 Heart disease Sam Madsen M.D. Onset: Erectile dysfunction Sam Madsen M.D. Onset : 06/13/2022 Hyperlipidemia Sam Madsen M.D. 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 Onset: 06/13/2022 Social History Type Date Description Comments Sex Unknown Tobacco Use Start: Unknown End: Unknown Quit 1987 ETOH Use Rarely consumes alcohol Allergies and adverse reactions Description No Known Drug Allergies Medications Active Medications SIG Qnty Indications Ordering Provider Date [id number] Tablets Take 1 Tablet By Mouth Daily Dante Grullon MD Metoprolol Succinate ER25mg Tablets ER 24HR Take 1 Tablet By Mouth Every Day Richard Berman M.D. Atorvastatin [id number] Tablets Take 1 Tablet By Mouth Every Day Richard Berman M.D. Vital Signs Date Vital Result Comment 06/13/2022 4:20pm BP Systolic 130 mmHg BP Diastolic 66 mmHg Heart Rate 63 /min Height 68 inches 5'8 Weight 235.25 lb BMI (Body Mass Index) 35.8 kg/m2 Results Test Acquired Date Facility Test Result H/L Range N ote Laboratory test finding 06/13/2022 Inhouse Glucose Fingerstick 166 Medical Devices Description No Information Available Encounters Type Date Location Provider Dx Diagnosis Office Visit 06/13/2022 4:15p Main Office Sam Madsen M.D. E11.8 Type 2 diabetes mellitus with unspecified complications I25.10 Athscl heart disease of [place] coronary artery w/o ang pctrs K21.00 Gastro-esophageal re flux dis with esophagitis, without bleed Assessments Date Code Description Provider 06/13/2022 E11.8 Type 2 diabetes mellitus with unspecified complications Sam Madsen M.D. 06/13/2022 I25.10 Atherosclerotic heart disease of [place] coronary artery without angina pectoris Sam Madsen M.D. 06/13/2022 K21.00 Gastro-esophagea l reflux disease with esophagitis, without bleeding Sam Madsen M.D. Plan of Treatment No Information Available Functional Status Description No Information Available Mental Status Description No Information Available Referrals Refer to Dr Reason for Referral Status Appt Lorne e Sam Madsen M.D. Created [address] [place] [address] Drive [address] [place] [address] [phone] Sam Masden M.D. Created [address] [place] [address] Drive [address] [place] [address] [phone]
[2024-08-07 14:30] VITALS: BP 126/60; PULSE 62; BMI 33.2
--- NOTE | 2024-08-07 14:30 | MHC.OFFVIS ---
Vital Signs 08/07/24 14:30 Height 5 ft 8 in Weight 218 lb 11.177 oz BMI 33.2 BP 126/60 Blood Pressure Location Lt brachial Position Sitting Pulse 62 Pulse Source Monitor Intake Visit Reasons: 1 yr f/up Intake Note: 1 yr f/up Tuberculosis Specialist Required: No Accompanied by: Self / Same As Patient Allergies No Known Allergies Allergy (Mild, Verified 04/23/24 15:25) N/A Medication List - Last Reconciled 08/07/24 by Dante Grullon MD aspirin (Adult Low Dose Aspirin) 81 mg PO DAILY atorvastatin 80 mg PO DAILY docusate sodium 100 mg PO BEDTIME lisinopril 5 mg PO DAILY loratadine (Claritin) 10 mg PO DAILY metformin 1,000 mg PO ONCE metoprolol succinate ER 25 mg PO DAILY polyethylene glycol 3350 (Miralax) 238 grams PO ONCE 1 day HPI Comments Details: Pleasant 69-year-old gentleman here for follow-up. He was admitted at [facility] when anterior wall [place] with ischemic cardiomyopathy with EF 25% and apical thrombus. He was treated with Plavix and Eliquis with subsequent improvement in LVEF and resolution of the apical thrombus. He was on aspirin Plavix for a total 1 year. Plavix has been stopped. 08/07/2024: He returns for follow-up. He recently had knee replacement is undergoing rehab. He is doing well. He has lost weight and his blood pressure diabetes control has been very good. Taking medications regularly otherwise. No concerns on follow-up [facility] Medical History (Updated 04/23/24 @ 15:31 by Phyllis Godfrey NP) Pre-operative cardiovascular examination Meniere disease Left ventricular thrombosis Diabetes Thrombocytopenia Carpal tunnel syndrome Fracture of right lower extremity Umbilical hernia Hyperlipidemia Coronary artery disease Surgical History History of shoulder surgery (~2010) Hx of right knee surgery Hx of heart artery stent (~03/2018) Hx of colonoscopy (~02/14/13) History of colonoscopy with polypectomy (~02/13/08) Family History Mother Hx of breast cancer Social History Alcohol intake: never Patient Tobacco Use Status: Former Tobacco user Years Smoked: 20 +/- Review of Systems Const Denies chills, Denies fatigue, Denies fever(s), Denies frequent falls, Denies weakness, Denies weight gain and Denies weight loss ENT Denies dizziness Card Denies chest pain, Denies leg edema, Denies lightheadedness, Denies palpitations, Denies dyspnea and Denies dyspnea on exertion Resp Denies cough, Denies dyspnea and Denies dyspnea on exertion GI Denies hematochezia Musc Denies abnormal gait, Denies muscle weakness, Denies numbness, Denies radiating pain into limb and Denies tingling Neuro Denies abnormal gait, Denies dizziness, Denies frequent falls, Denies numbness, Denies tingling and Denies weakness Endo Denies fatigue and Denies palpitations Physical Exam Vital Signs: Last Vital Signs Pulse 62 08/07/24 14:30 BP 126/60 08/07/24 14:30 BMI result Body Mass Index 33.2 GENERAL APPEARANCE: in no acute distress, well developed, well nourished. NECK/THYROID: no carotid bruit, no jugular venous distention. SKIN: no suspicious lesions, warm and dry. HEART: no murmurs, regular rate and rhythm, S1, S2 normal. LUNGS: clear to auscultation bilaterally. ABDOMEN: normal, bowel sounds present, soft, nontender, nondistended. EXTREMITIES: no clubbing, cyanosis, or edema. PERIPHERAL PULSES: equal. NEUROLOGIC: nonfocal, alert and oriented. PSYCH: mood/affect full range. Office Procedures EKG Details: Normal sinus rhythm 62 beats per minute, normal axis, nonspecific ST-T changes, QTC 422 milliseconds. 83178-Ulkhwhkkggegtomkp, Complete Assessment & Plan Assessment & Plan (1) Coronary artery disease: Code(s): I25.10 - Atherosclerotic heart disease of seminole coronary artery without angina pectoris Category: Medical Qualifiers: Coronary Disease-Associated Artery/Lesion type: seminole artery Andreafski vs. transplanted heart: seminole heart Associated angina: without angina Qualified Code(s): I25.10 - Atherosclerotic heart disease of seminole coronary artery without angina pectoris (2) Stable angina: Code(s): I20.8 - Other forms of angina pectoris Category: Medical Plan 69-year-old gentleman with stable angina. He previously had anterior wall [place] with severe cardiomyopathy which improved after revascularization. He also had LV thrombus which resolved. He is currently on aspirin which he is taking regularly. No bleeding concerns. Blood pressure control is good. Clinically stable at this stage. He will follow-up with us in 1 year. Thank you for allowing me to participate in the care of your patient. Please feel free to contact me if you have any questions. Coding Level of Care Code Est Pt Level 4 (44783) Diagnoses Coronary artery disease involving seminole coronary artery of seminole heart without angina pectoris I25.10 Coronary Disease-Associated Artery/Lesion type: seminole artery Andreafski vs. transplanted heart: seminole heart Associated angina: without angina Stable angina I20.8 CPT Codes EKG - CPT: 18270-Bgbklcpzcvbhuffql, Complete ([id number])
== END 2024-08-07 14:55 | disposition home or self-care (01) ==
PROVIDERS: PCP Internal Medicine Medical Oncology; Visit Provider Internal Medicine Cardiovascular Disease
DX: I25.118 Atherosclerotic heart disease of native coronary artery with other forms of angina pectoris (principal)
CPT/HCPCS: 93010; 99214

== ENCOUNTER → 2024-08-07 14:04 | Outpatient (BNVA) | payer OTHER, SELFPAY | PROVIDERS: PCP Internal Medicine Medical Oncology; Visit Provider Internal Medicine Cardiovascular Disease | DX: I25.118 Atherosclerotic heart disease of native coronary artery with other forms of angina pectoris (principal); Z79.82 Long term (current) use of aspirin | CPT/HCPCS: 93005 ==

== ENCOUNTER 2024-11-27 08:36 | Outpatient (REF) | payer OTHER, SELFPAY ==
[2024-11-27 08:47] LABS: MANUAL DIFF FLAG NO
--- OUTSIDE RECORDS SUMMARY | 2024-11-27 08:54 | XMS_ITS | Data Portability ---
Author Organization [place] [facility], Allergy Address [address] [address] Assessment Encounter Date Assessment Date Assessment LastModified by Organization Details LastModified Time 09/16/2024 09/16/2024 Patient with history consistent with Meniere's disease, though we discussed there may be other vestibulopathies in play. Has never had an audiogram during an attack. Today, the neurologic and vestibular exam are reassuring. Audiometric testing demonstrates largely symmetric bilateral neurosensory hearing loss. Speech recognition is excellent and we discussed that amplification is not indicated. We reviewed that if he has another attack he should call for an audiogram while symptoms are active. Otherwise he should have annual audiometric testing. We reviewed dietary interventions to reduce frequency and severity of MD attacks, and discussed the dangers of over-using meclizine. Patient was given some reading material to peruse at home. [email or web address] Not available 09/16/2024 16:41:31 Plan of Treatment Reminders Order Date Submit Date Provider Last Modified By Organization Details Last Modified Time Details Appointments None record ed. Lab None record ed. Referral None record ed. Procedures None record ed. Surgeries None record ed. Imaging None record ed. Medication Orders None record ed. Patient TargetsNo targets recorded. Patient InstructionsNo instructions recorded. Reason for Referral None Reported. Results Created Date Observation Date Name Description Value Unit Range Abnormal Flag Note LastModifiedBy Organization Detail LastModifiedTime 09/17/19 25 audio gram No observ ation record ed. BARCODE Not Available 2024 11:27:10 Result Notes None recorded. 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 - [facility] 5 15:50:03 Periphera l vertigo 45796922 Active 2024 PATI COOK PA-C [address] [facility],[place] [address], [facility] [place], [address] , [facility] - [facility] 5 16:41:37 Problem Notes None recorded. Procedures Surgical History Date Name Laterality Status Provider Name and Address Organization Details Recorded Time 09/16/2024 Comp Audio with Tymps (47792 & 13429) completed CHAY VINCENT, AUD [address] [facility],[place] [address], [place], [address], [facility] [place] 09/16/2024 15:49:55 Imaging Results Imaging Date Name Status LastModified by Organiz ation Details LastModified Time 09/17/2024 audiogram completed BARCODE Information no t available 09/17/2024 11:27:10 Procedure Notes None recorded. Medical Equipment None Reported. Medications Name Sig Start Date Stop Date Status Note LastModified by Organization Details LastModified Time amoxicilli n 500 mg capsule active Not Available Not Available Not Available atorvastat in 80 mg tablet active Not Available Not Available Not Available Colt Low Dose Aspirin 81 mg tablet,del ayed release 2017 active Medication ID: [id number] Dur ation Value: 30 Brand Name: Aspirin Low Dose Send Method: E-Prescrib ed Subs Allowed: subs OK Special Instructio n: TAKE 1 TABLET BY MOUTH EVERY DAY Medica tionGeneri cName: Aspirin Low Dose Not Available Not Available Not Available clopidogre l 75 mg tablet 2017 active Medication ID: [id number] Dur ation Value: 30 Brand Name: clopidogre l Send Method: E-Prescrib ed Subs Allowed: subs OK Special Instructio n: take 1 tablet by mouth once daily STOP BRILINTA, TAKE 4 TABLETS O... (REFER TO PRESCRIPTI ON NOTES). Dc dicationGe nericName: clopidogre l Not Available Not Available Not Available tramadol 50 mg tablet TAKE 1 TO 2 TABLETS BY MOUTH EVERY 6 HOURS NEEDED FOR MILD PAIN. *DO NOT EXCEED 8 TABLETS (400MG) PER DAY* active Not Available Not Available No t Available warfarin 6 mg tablet 2017 active Medication ID: [id number] Dur ation Value: 15 Brand Name: warfarin S end Method: E-Prescrib ed Subs Allowed: subs OK Special Instructio n: TAKE 1 TABLET BY MOUTH EVERY DAY FOR 15 DAYS Medic ationGener icName: warfarin Not Available Not Available Not Available meclizine 25 mg tablet active Not Available Not Available Not Available cephalexin 500 mg capsule 2017 active Medication ID: [id number] Dur ation Value: 1 Brand Name: cephalexin Send Method: E-Prescrib ed Subs Allowed: subs OK Special Instructio n: take 1 capsule by mouth every 6 hours for 7 days Medic ationGener icName: cephalexin Not Available Not Available Not Available metformin 1,000 mg tablet active Not Available Not Available Not Available lisinopril 5 mg tablet active Not Available Not Available Not Available metoprolol succinate ER 25 mg tablet,ext ended release 24 hr active Not Available Not Available Not Available ketoconazo le 2 % topical cream 2017 active Medication ID: [id number] Dur ation Value: 30 Brand Name: ketoconazo le Send Method: E-Prescrib ed Subs Allowed: subs OK Special Instructio n: apply topically affected area twice a day Medica tionGeneri cName: ketoconazo le Not Available Not Available Not Available oxycodone 5 mg tablet TAKE 1 TO 2 TABLETS BY MOUTH EVERY 4 HOURS NEEDED FOR SEVERE PAIN active Not Available Not Available No t Available Brilinta 90 mg tablet 2017 active Medication ID: [id number] Dur ation Value: 30 Brand Name: Brilinta S end Method: E-Prescrib ed Subs Allowed: subs OK Special Instructio n: TAKE 1 TABLET BY MOUTH TWO TIMES A DAY Medica tionGeneri cName: Brilinta Not Available Not Available Not Available Eliquis 2.5 mg tablet TAKE 1 TABLET BY MOUTH 2 TIMES A DAY FOR 30 DAYS active Not Available Not Available No t Available Vitals None Recorded Social History None recorded. Functional Status None recorded. Mental Status None recorded. Family History Nothing Reported. Medical History No medical history recorded. Past Encounters Encounter ID Performer Location Encounter Start Date Encounter Closed Date Diagnosis/Indication Diagnosis SNOMED-CT Code Diagnosis ICD10 Code Diagnosis Note [id number] PATI COOK PA-C [facility] [address] [address] 09/16/2024 15:33:01 09/16/2024 16:35:10 Sensorineural hearing loss of bilateral ears [id number] H90.3 Right Ear:Normal hearing through 2K Hz sloping to a moderate SNHL with excellent speech discrimina tion.Type A tympanogra m.Left Ear:Normal hearing through 3K Hz sloping to a mild SNHL with excellent speech discrimina tion.Type A tympanogra m. Peripheral vertigo 12663 001 H81.399 Health Concerns Section Related Observation LastModified by Organization Detai ls LastModified Time None Recorded Concern Status LastModified by Organization Details LastModified Time None Recorded Advance Directives Directive None Recorded Payers Encounter Date Sequence Insurance Name Policy Number Policy Rojas Covered Member ID Rojas Member ID Guarantor Name 09/16/2024 1 [facility] [place] Alfonso Mane [id number] Alfonso Mane Notes Date Note Type Note Provider Name and Address Organization Details Recorded Time 09/16/2024 text/html 69 year old male presents for evaluation of the ears and hearing. He reports his hearing is pretty good on the left but the right comes and goes. There is right aural pressure and buzzing tinnitus associated with the muffling. This usually precedes an attack of spinning vertigo that can persist for hours, which can be accompanied by nausea. He falls asleep and awakens feeling better. First episode occurred about 18 months ago. Started with pain and blockage in the right ear. He has had a couple of episodes in the past year, most recently in April. During one episode he was worked up for stroke with some brain imaging that was negative. He cannot discern anything in particular that triggers an attack, aside from one episode that started with a bag of salt and vinegar chips. PCP advised him to take meclizine when he feels an attack coming on. He has switched to decaf coffee and reduced his sodium intake. Unsure how much sodium he is currently having. Episodes are not accompanied by confusion, slurred speech, facial or extremity weakness, numbness, paralysis, headache, chest pain, heart palpitations, vision change, loss of visual field, photophobia, nor phonophobia. Mom with unilateral deafness, patient unsure age at onset. Daughter went deaf as a teen, patient unsure what happened. PATI COOK PA-C [address] [place] [address], [address], [place] [facility] 09/16/2024 16:42:01
--- OUTSIDE RECORDS SUMMARY | 2024-11-27 08:54 | XMS_ITS | Continuity of Care Document ---
Author Organization [facility] [address] [place] [address] Phone [phone] Care Team Providers Care Spanish Professor Name Role Phone Richard Berman M.D. Care Team Information Receive r [phone] Problems Active Problems Provider Date Diabetes mellitus [...] Medications SIG Qnty Indications Ordering Provider Date Zqaobaroxf4bd Tablets Take 1 Tablet By Mouth Daily Dante Grullon MD Metoprolol Succinate ER25mg Tablets ER 24HR Take 1 Tablet By Mouth Every Day Richard Berman M.D. Atorvastatin Ufmhgod34bh Tablets Take 1 Tablet By Mouth Every Day Richard Berman M.D. Vital Signs Date Vital Result Comment 06/13/2022 4:20pm BP Systolic 130 mmHg BP Diastolic 66 mmHg Heart Rate 63 /min Height 68 inches 5'8 Weight 235.25 lb BMI (Body Mass Index) 35.8 kg/m2 Results Test Acquired Date Facility Test Result H/L Range N ote Glucose Fingerstick 06/13/2022 Inhouse Glucose Fingerstick 166 Medical Devices Description No Information Available Encounters Type Date Location Provider Dx Diagnosis Office Visit 06/13/2022 4:15p Main Office Sam Madsen M.D. E11.8 Type 2 diabetes mellitus with unspecified complications I25.10 [facility] [place] coronary artery w/o ang pctrs K21.00 Gastro-esophageal re flux dis with esophagitis, without bleed Assessments Date Code Description Provider 06/13/2022 E11.8 Type 2 diabetes mellitus with unspecified complications Sam Madsen M.D. 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 06/13/2022 K21.00 Gastro-esophagea l reflux disease with esophagitis, without bleeding Sam Madsen M.D. Plan of Treatment No Information Available Functional Status Description No Information Available Mental Status Description No Information Available Referrals Refer to Reason for Referral Status Appt Lorne e Sam Madsen M.D. Created [address] [place] [address] Drive [address] [place] [address] [phone] Sam Madsen M.D. Created [address] [place] [address] Drive [address] [place] [address] [phone]
[2024-11-27 09:38] LABS: Basophils Percent Auto 0.5 % (0-2); Eosinophils Absolute Auto 0.3 X10*3/uL (0.0-0.4); Eosinophils Percent Auto 3.8 % (0-4); Hematocrit 44.6 % (42.0-52.0); Hemoglobin 14.6 g/dl (14.0-18.0); Imm Gran Abs Auto 0.02 X10*3/uL (0.00-0.03); Imm Gran Pct Auto 0.3 % (0.0-0.4); Lymphocytes Absolute Auto 1.7 X10*3/uL (1.2-4.9); Mean Corpuscular HGB Conc 32.7 g/dl (31.0-36.0); Mean Corpuscular Hemoglobin 28.1 pg (27.0-33.0); Mean Corpuscular Volume 85.9 fL (80.0-98.0); Mean Platelet Volume 11.9 fL (9.4-12.4); Monocytes Absolute Auto 0.5 X10*3/uL (0.1-1.2); Monocytes Percent Auto 8.1 % (2-11); Neutrophils Percent Auto 61.3 % (45-73); Platelet Count 133 X10*3/uL (160-400); Red Blood Count 5.19 X10*6/uL (4.60-5.80); Red Cell Distribution Width 13.9 % (11.0-16.0); White Blood Count 6.6 X10*3/uL (4.8-10.8)
[2024-11-27 09:45] LABS: Estimated Average Glucose 183 mg/dL; Hemoglobin A1C 244.3018 umol/L; Total Hemoglobin (HGBA1C) 3836.6022 umol/L
[2024-11-27 10:23] LABS: Alanine Aminotransferase 25 U/L (0-40); Albumin Level 4.1 g/dL (3.5-5.0); Alkaline Phosphatase 91 U/L (39-117); Anion Gap 12 (12-20); Aspartate Amino Transferase 22 U/L (5-37); Bilirubin Total 1.1 mg/dL (0.0-1.0); Blood Urea Nitrogen 25 mg/dL (9-16); Calcium 9.2 mg/dL (8.4-10.2); Carbon Dioxide 25 mmol/L (22-29); Chloride 103 mmol/L (96-108); Estimated Glomerular Filt Rate > 60; Glucose Fasting 144 mg/dL (60-99); Potassium 4.2 mmol/L (3.3-5.1); Sodium 136 mmol/L (135-145); Total Protein 6.9 g/dL (6.5-8.0)
== END 2024-11-27 08:37 | disposition home or self-care (01) ==
LOC: HO.LAB 08:36
PROVIDERS: PCP Internal Medicine Medical Oncology; Visit Provider Internal Medicine Medical Oncology
DX: E11.9 Type 2 diabetes mellitus without complications (principal); E66.01 Morbid (severe) obesity due to excess calories
CPT/HCPCS: 36415; 80053; 83036; 85025

== ENCOUNTER 2025-02-26 08:51 | Outpatient (REF) | payer OTHER, SELFPAY ==
--- OUTSIDE RECORDS SUMMARY | 2024-09-17 10:01 | XMS_ITS ---
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 Name Role Phone Richard Berman Primary Care Provider [phone] REASON FOR VISIT Insurance Social History Sex Assigned At : Social History Observation Description Sex Assigned At Male Encounters Encounter Location Date Provider Diagnosis Richard Berman III, MD [address] [place] [address] [place] [address] 09/17/2024 Richard Berman Plan Of Treatment Next Appt Details Provider Name:Richard Berman, 02/26/2025 03:30:00 PM, [address] [place] [address] [place], [address], Provider Name:Richard Berman, 12/01/2025 03:30:00 PM, [address] [place] [address] [place], [address], Progress Notes * Alfnoso MANEDOB: 7 (69 yo M)Acc No.[id number]:09/17/2024 Patient: Alfonso JORDAN :1955 A ge:69 Y S ex:Male [address], [place] [address] * true * Date: Generated for Marco rogers/Mushtaq/Soosmitting on: 0 02/26/2025 09:11 AM EDT
[2025-02-26 09:06] LABS: MANUAL DIFF FLAG NO
--- OUTSIDE RECORDS SUMMARY | 2025-02-26 09:11 | XMS_ITS | Continuity of Care Document ---
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 Care Team Information Receive r [phone] Problems Active Problems Provider Date Diabetes mellitus Sam Madsen M.D. Onset: 1 08/13/2021 Gastroesophageal reflux disease Sam Madsen M.D. Onset: 06/13/2022 Heart disease Sam Madsen M.D. Onset: Erectile dysfunction Sam Madsen M.D. Onset : 06/13/2022 Hyperlipidemia Sam Madsen M.D. 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 Onset: 06/13/2022 Social History Type Date Description Comments Sex Male Sex Unknown Tobacco Use Start: Unknown End: Unknown Quit 1987 ETOH Use Rarely consumes alcohol Allergies and adverse reactions Description No Known Drug Allergies Medications Active Medications SIG Qnty Indications Ordering Provider Date Odblalvsep5ve Tablets Take 1 Tablet By Mouth Daily Dante Grullon MD Metoprolol Succinate ER25mg Tablets ER 24HR Take 1 Tablet By Mouth Every Day Richard Berman M.D. Atorvastatin [id number] Tablets Take 1 Tablet By Mouth Every [...] unspecified complications I25.10 Athscl heart disease of saxman coronary artery w/o ang pctrs K21.00 Gastro-esophageal re flux dis with esophagitis, without bleed Assessments Date Code Description Provider 06/13/2022 E11.8 Type 2 diabetes mellitus with unspecified complications Sam Madsen M.D. 06/13/2022 I25.10 Atherosclerotic heart disease of saxman coronary artery without angina pectoris Sam Madsen M.D. 06/13/2022 K21.00 Gastro-esophagea l reflux disease with esophagitis, without bleeding Sam Madsen M.D. Plan of Treatment No Information Available Functional Status Description No Information Available Mental Status Description No Information Available Referrals Refer to Reason for Referral Status Appt Lorne e Sam Madsen M.D. Created [address] [place] [address] Drive [address] [place] [address] [phone] Sam Madsen M.D. Created [address] [place] [address] Drive [address] [place] [id number] [phone]
--- OUTSIDE RECORDS SUMMARY | 2025-02-26 09:11 | XMS_ITS | Patient Health Record ---
Author Organization [facility] Address [address] [place] [address] Care Team Providers Care Brake Operator Name Role Phone Richard Berman MD Primary Care Provider UnavailRichard Corona Unavailable [phone] Allergies No Known Allergies Reason For Referral No Information Medications Medication SIG (Take, Route, Frequency, Duration) Notes Start Date End Date Status Aspir-Low 81 MG 1 tablet Orally Once a day for 30 day(s) Active Metoprolol Succinate ER 25 MG Oral for 90 Active metFORMIN HCl 1000 MG Oral for 90 Active Atorvastatin Calcium 80 MG Oral for 90 Active Lisinopril 5 MG Oral for 90 Ac tive Immunizations Vaccine Route Administration Date Status Comme nts Influenza Unknown 06/20/2023 Administered Social History Tobacco Use: Social History Observation Description Date Details (start date - stop date) Never Smoker NA - NA Tobacco Use/Smoking Question Answer Notes Patient is a nonsmoker Alcohol Screen Question Answer Notes Did you have a drink containing alcohol in the p ast year? No Points 0 Interpretation Negative Problems Problem Type SNOMED Code ICD Code Onset Dates Problem Status W/U Status Risk Notes Problem Colon cancer screening (218578587) Colon cancer screening (Z12.11) Active confirmed Problem Change in bowel habit (18346729) Change in bowel habits (R19.4) Active confirmed Problem History of polyp of colon (852395345) History of colon polyps (Z86.010) Active confirmed Problem Gastroesophageal reflux disease (801462159) GERD (gastroesopha geal reflux disease) (K21.9) Active confirmed Encounters Encounter Location Date Provider Diagnosis [facility] [address] [place] [address] [place] [address] 04/26/2024 Richard Peng Plan Of Treatment Future Test Test Name Order Date UPPER GI ENDOSCOPY 01/16/2024 COLONOSCOPY 01/16/2024 Insurance Providers Payer Name Payer Address Payer Phone Subscriber Number Group Number Insured Name Patient Relationship to Insured Coverage Start Date Coverage End Date [facility] [address] [place] [id number] [id number] DARCY ALEX Self - patient is the insured Medical (General) History Medical History History ICD Code NIDDM CAD-SD 2018 with 1 stent GERD Denies CVA,Lung disease,renal disease Colonoscopies with polyps re moved--his last reported complete the exam was in [address] De La Torre, at which time some polyps were removed. An attempted colonoscopy 5 years after that was unsuccessful due to a poor prep HTN Hyperlipidemia Surgical History Surgery Date(Month/Year) right knee surgery 1992 left shoulder surgery 2008 carpal tunnel bilaterally 2008
--- OUTSIDE RECORDS SUMMARY | 2025-02-26 09:11 | XMS_ITS | Clinical Summary ---
Author Organization [facility] Address [address] [facility] [address] [place] [phone] Phone Care Team Providers Care Furniture Mover Helper Name Role Phone Richard Berman MD Primary Care Provider [phone] Allergies No known active allergies Medications lisinopril (PRINIVIL,ZESTRI L) 10 MG tablet Take 10 mg by mouth daily. Active aspirin 81 MG EC tablet Take 81 mg by mouth daily. Active atorvastatin (LIPITOR) 80 MG tablet 0 2019 Active metoprolol succinate (TOPROL-XL) 25 MG 24 hr tablet 0 2019 Act gui lisinopril (PRINIVIL,ZESTRI L) 5 MG tablet 0 03/08/2019 Acti ve clopidogrel (PLAVIX) 75 mg tablet 0 02/07/2019 Active Social History Tobacco Use Types Packs/Day Years Used Date Smoking Tobacco: Former Smokeless Tobacco: Never Alcohol Use Standard Drinks/Week Comments Not Currently 0 (1 standard drink = 0.6 oz pur e alcohol) alcohol free for 30 years Education Answer Date Recorded Are you interested in more education? Not on pan e 11/25/2022 Are you concerned about learning? Not on file 11/25/2022 No 11/25/2022 No 11/25/2022 Digital Access Answer Date Recorded No 12/27/2022 No 12/27/2022 No 12/27/2022 Reliable internet access at home? Not on file 12/27/2022 Device with a working camera? Not on file Sex and Gender Information Value Date Recorded Sex Assigned at Not on file Legal Sex Male 6:27 PM EDT Gender Identity Not on file Sexual Orientation Not on file Last Filed Vital Signs Vital Sign Reading Time Taken Comments Blood Pressure 145/88 05/10/2019 6:35 PM EDT Pulse 55 05/10/2019 6:35 PM EDT Temperature 36.6 C (97.9 F) 05/10/2019 6:35 PM EDT Respiratory Rate - - Oxygen Saturation 99% 05/10/2019 6:35 PM EDT Inhaled Oxygen Concentration - - Weight 113.4 kg (250 lb) 05/10/2019 6:35 PM EDT Height - - Body Mass Index - - Plan of Treatment Not on file Medical Devices Not on file [address] O O Care Teams Furniture Mover Helper Relationship Specialty Start Date End Date Richard Berman MD [address] [place] [id number] PCP - General Medical Oncology 05/10/19 Additional Source Comments The information contained in this document represents components of the legal health record. It is not the complete legal health record.[facility]
[2025-02-26 09:20] LABS: Hematocrit 44.5 % (42.0-52.0); Hemoglobin 14.7 g/dl (14.0-18.0); Imm Gran Abs Auto 0.02 X10*3/uL (0.00-0.03); Imm Gran Pct Auto 0.4 % (0.0-0.4); Lymphocytes Absolute Auto 1.7 X10*3/uL (1.2-4.9); Mean Corpuscular HGB Conc 33.0 g/dl (31.0-36.0); Mean Corpuscular Hemoglobin 28.5 pg (27.0-33.0); Mean Corpuscular Volume 86.4 fL (80.0-98.0); NRBC Abs Auto 0.000 X10*3/uL (0.0-0.012); NRBC Pct Auto 0.0 /100WBC (0.0-0.2); Platelet Count 127 X10*3/uL (160-400); Red Blood Count 5.15 X10*6/uL (4.60-5.80); White Blood Count 5.5 X10*3/uL (4.8-10.8)
[2025-02-26 09:39] LABS: Alanine Aminotransferase 19 U/L (0-40); Albumin Level 4.3 g/dL (3.5-5.0); Alkaline Phosphatase 79 U/L (39-117); Anion Gap 11 (12-20); Aspartate Amino Transferase 21 U/L (5-37); Blood Urea Nitrogen 19 mg/dL (9-16); Calcium 9.0 mg/dL (8.4-10.2); Carbon Dioxide 27 mmol/L (22-29); Chloride 104 mmol/L (96-108); Cholesterol 113 mg/dL (<200); Estimated Glomerular Filt Rate > 60; HDL Cholesterol 41 mg/dL (>40); Potassium 5.1 mmol/L (3.3-5.1); Sodium 137 mmol/L (135-145); Total Protein 6.9 g/dL (6.5-8.0); Triglycerides 109 mg/dL (<150)
[2025-02-26 10:01] LABS: Prostate Specific Antigen 0.81 ng/mL (<0.05-4.0)
[2025-02-26 10:06] LABS: Microalbum/Creatinine Ratio Ur 10.4 ug/mg cr (<30)
[2025-02-26 13:06] LABS: Hemoglobin A1C 241.4028 umol/L; Total Hemoglobin (HGBA1C) 3714.4649 umol/L
== END 2025-02-26 08:52 | disposition home or self-care (01) ==
LOC: HO.LAB 08:51
PROVIDERS: PCP Internal Medicine Medical Oncology; Visit Provider Internal Medicine Medical Oncology
DX: E11.9 Type 2 diabetes mellitus without complications (principal); E66.01 Morbid (severe) obesity due to excess calories; E78.5 Hyperlipidemia, unspecified; D69.6 Thrombocytopenia, unspecified; D12.6 Benign neoplasm of colon, unspecified
CPT/HCPCS: 36415; 80053; 80061; 82043; 82570; 83036; 84153; 85025

== ENCOUNTER 2025-05-24 09:52 | Outpatient (REF) | payer OTHER, SELFPAY ==
--- OUTSIDE RECORDS SUMMARY | 2024-04-29 08:30 | XMS_ITS ---
Author Organization [facility] Address [address] [place] [id number] Care Team Providers Care Nuclear Medicine Pet Ct Technologist Name Role Phone Antonella ROONEY, Richard Primary Care Provider UnavailRichard [facility] [phone] REASON FOR VISIT gerd,screening Encounters Encounter Location Date Provider Diagnosis [facility] Outpatient [address] [place] [id number] 04/29/2024 Richard Peng Plan Of Treatment No Information Progress Notes * DARCY ALEXDOB: 7 (70 yo M)Acc No.[id number]:04/29/2024 EGD and COL/MAC Patient: DARCY JORDAN Provider: Lazara Peng MD :1955 A ge:69 Y S ex:Male Date:04/29/2024 Address:[address] [place], [place] [id number] Pcp:Richard Berman MD Subjective: * Chief Complaints: * 1 . Gerd,screening. * Medical History: Objective: * Vitals: Assessment: Plan: * Treatment: * * The named appointment provid er may or may not be the originator of this progress note, and it is not deemed complete until electronically signed by the appointment provider. Sign off status: Pending * Provider: Lazara Peng MD Date: 0 04/29/2024 Generated for Printi ng/Faxing/eTransmitting on: 1 09:58 AM EDT
--- OUTSIDE RECORDS SUMMARY | 2024-05-03 11:30 | XMS_ITS ---
Author Organization Richard Berman III, MD Address [address] [place] [address] [place] [address] Care Team Providers Care Microfilmer Name Role Phone Dr. Richard Berman III Primary Care Provider Allergies Allergen (clinical drug ingredient) Drug/Non Drug Allergy documented on EMR Reaction Allergy Type Onset Date Status No Known Drug Allergy Unknown Drug Allergy Active REASON FOR VISIT Preop Medications Medication SIG (Take, Route, Frequency, Duration) Notes Start Date End Date Status Meclizine HCl 50 MG 1 tablet as needed O rally every 6 hrs prn vertigo 04/09/2024 Active metFORMIN HCl 1000 MG 1 tablet Orally On ce a day 08/15/2023 Active Aspirin Adult Low Dose Active Gauze Pads 3 X3 as directed - use to test blood sugar once a day 02/06/2023 Active Alcohol Pads 70 % as directed - use to check blood sugar once a day 02/06/2023 Active FreeStyle Lite w/Device as directed - us e to check blood sugar once a day 02/06/2023 Active FreeStyle Lancets - as directed - use to check blood sugar once a day 02/06/2023 Active FreeStyle Lite Test - as directed In Vit ro use to check blood sugar once a day 02/06/2023 Active Lisinopril 5 MG TAKE ONE TABLET BY M OUTH ONCE DAILY Active Atorvastatin Calcium 80 MG take 1 tablet by mouth every day Orally Once a day Active Metoprolol Succinate ER 25 MG TAKE ONE TABLET BY MOUTH ONCE DAILY Active Social History Tobacco Use: Social History Observation Description Date Details (start date - stop date) Former Smoker NA - NA Sex Assigned At : Social History Observation Description Sex Assigned At Male Tobacco Use/Smoking Question Answer Notes Patient is a former smoker How long has it been since you last smoked? > 10 years Additional Findings: Tobacco Non-User Ex-cigaret te smoker Encounters Encounter Location Date Provider Diagnosis Richard Berman III, MD [address] [place] [address] [place] [address] 05/03/2024 Richard Berman Thrombocytopenia D69 .6 ; Type 2 diabetes mellitus without complication, without long-term current use of insulin E11.9 and Former smoker Z87.891 Assessments Encounter Date Diagnosis (ICD Code) Assessment Notes T reatment Notes Treatment Clinical Notes 05/03/2024 Thrombocytopenia (ICD-10 - D69.6) The current platelet count is 127,000. He has had no bleeding or bruising. He will avoid aspirin. He will notify me if he has any manifestations of blood loss. 05/03/2024 Type 2 diabetes mellitus without complication, without long-term current use of insulin (ICD-10 - E11.9) His weight is stable. His hemoglobin A1c has dropped from 8.0 down to 7.7 to 7.6. He is consuming a diabetic diet and trying to lose weight and be active. 05/03/2024 Former smoker (ICD-1 0 - Z87.891) He is highly motivated not to smoke anymore. We have creative plan to prevent relapse in times of stress and illness. Plan Of Treatment Medication Medication Name Sig Start Date Stop Date Notes Meclizine HCl 50 MG 1 tablet as needed O rally every 6 hrs prn vertigo 04/09/2024 metFORMIN HCl 1000 MG 1 tablet Orally Once a day 4 Aspirin Adult Low Dose Gauze Pads 3 X3 as directed - use to test blood sugar once a day 02/06/2023 Alcohol Pads 70 % as directed - use to check blood sugar once a day 02/06/2023 FreeStyle Lite w/Device as directed - us e to check blood sugar once a day 02/06/2023 FreeStyle Lancets - as directed - use to check blood sugar once a day 02/06/2023 FreeStyle Lite Test - as directed In Vit ro use to check blood sugar once a day 02/06/2023 Lisinopril 5 MG TAKE ONE TABLET BY M OUTH ONCE DAILY Atorvastatin Calcium 80 MG take 1 tablet by mouth every day Orally Once a day Metoprolol Succinate ER 25 MG TAKE ONE T ABLET BY MOUTH ONCE DAILY Next Appt Details Provider Name:Richard Berman , 05/27/2025 03:15:00 PM, [address] [place] [address] [address], [place], [address], Provider Name:Richard Berman , 12/01/2025 03:30:00 PM, [address] [place] [address] [address], [place], [address], Progress Notes * Alfonso MANEDOB: 7 (70 yo M)Acc No.[id number]:05/03/2024 Patient: Alfonso JORDAN Provider: Lazara Berman MD :1955 A ge:69 Y S ex:Male Date:05/03/2024 Address:[address] [place], [place] [address] , [address]-[phone] Subjective: * Chief Complaints: * 1 . Preop. * HPI: C OVID-19 Screening: Questions H ave you had any new onset fever, chills, cough, congestion, sore throat, shortness of breath, muscle aches? N o H ave you been exposed to the virus within the last 10 days? N o H ave you travelled internationally in the last 10 days? N o H ave you been exposed to COVID-19 in the past? N o * ROS: G eneral/Constitutional: pain o nly normal aches and pains. C hills d enies.?Fatigue a dmits. F ever d enies. E NT: Decreased hearing d enies. R espiratory: Cough d enies. C ardiovascular: Chest pain with exertion d enies. D yspnea on exertion?denies. S hortness of breath d enies. G astrointestinal: Constipation d enies. D ecreased appetite d enies.?Diarrhea d enies. H eartburn d enies. N ausea d enies. R ectal bleeding?denies. V omiting d enies. H ematology: bruising d enies. p etechiae d enies. S wollen glands n one have been noted. G enitourinary: Frequent urination d enies. M usculoskeletal: Muscle aches d enies. P ainful joints d enies. S ciatica d enies. W eakness d enies. S kin: Itching d enies. R paulie d enies. S kin lesion(s)?denies. N eurologic: Difficulty speaking d enies. D izziness d enies.?Headache d enies. L ow back pain d enies. P sychiatric: Depressed mood d enies. * Medical History: T endonitis of thumbs, Hyperlipidemia, Overweight, 1993 fracture right leg, Carpal tunnel syndrome, Umbilical hernia, Thrombocytopenia, Erectile dysfunction, acute myocardial infarction March 2018, LAD occlusion, angioplasty and stent, Anticoagulation with warfarin, 2019 hematospermia, N 2020 type 2 diabetes mellitus, Left ventricle thrombus: Cardiac catheterization March 2018, anticoagulated. * Surgical History: c ardiac catheterization 03/2018. * Hospitalization/Major Diagno stic Procedure: c ardiac catheterization STEMI . * Family History: F ather: alive 86 yrs, ulcers, hepatitis c through blood transfusion, hyperlipidemia, diagnosed with Hyperlipidemia. M other: 69 yrs, alcoholism, drug abuse, breast cancer, myocardial infarction, coma, diagnosed with Cancer. 2 brother(s) , 2 sister(s) . 2 son(s) , 1 daughter(s) . . His siblings have rheumatoid arthritis, knee replacements and a son at 23 in auto collision. He has a maternal history of addiction and mental illness. He has a personal history of alcoholism. He is not aware of any other family history of mental illness or substance use disorder reduction. * Social History: T obacco Use: T obacco Use/Smoking Kathie beth is a f ormer smoker H ow long has it been since you last smoked??> 10 years A dditional Findings: Tobacco Non-User E x-cigarette smoker Chayito castellon is and has three children. He was born in [place]. 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 * Medications: T aking Metoprolol Succinate ER 25 MG Tablet Extended Release 24 Hour TAKE ONE TABLET BY MOUTH ONCE DAILY , Taking Atorvastatin Calcium 80 MG Tablet take 1 tablet by mouth every day Orally Once a day , Taking Lisinopril 5 MG Tablet TAKE ONE TABLET BY MOUTH ONCE DAILY , Taking FreeStyle Lite Test - Strip as directed In Vitro use to check blood sugar once a day , Taking FreeStyle Lancets - Miscellaneous as directed - use to check blood sugar once a day , Taking FreeStyle Lite w/Device Kit as directed - use to check blood sugar once a day , Taking Alcohol Pads 70 % Pad as directed - use to check blood sugar once a day , Taking Gauze Pads 3 X3 Pad as directed - use to test blood sugar once a day , Taking Aspirin Adult Low Dose , Taking metFORMIN HCl 1000 MG Tablet 1 tablet Orally Once a day , Taking Meclizine HCl 50 MG Tablet 1 tablet as needed Orally every 6 hrs prn vertigo , Discontinued Meclizine HCl 25 MG Tablet as directed Orally every 12 hrs , Medication List reviewed and reconciled with the patient * Allergies: N o Known Drug Allergy. Objective: * Vitals: * Examination: G eneral Examination: GENERAL APPEARANCE: p leasant, well nourished, well developed, in no acute distress, calm and relaxed. HEAD: a traumatic, normocephalic. EYES: e rebecca, perrla, anicteric, conjugate. EARS: n ormal. NOSE: s eptum intact. ORAL CAVITY: n ormal, unremarkable. NECK/THYROID: n o jugular venous distention, no carotid bruit, thyroid normal. LYMPH NODES: n o enlarged lymph nodes,spleen normal. SKIN: n o suspicious lesions, anicteric. HEART: n o clicks, gallops, murmurs, or rubs, regular rhythm, S1, S2 normal, no s3, or vascular bruits. LUNGS: c lear to auscultation . BREASTS: no masses palpable bilaterally. ABDOMEN: b owel sounds normal, no ascites, no organomegaly, no mass. RECTAL EXAM: n ot examined. MUSCULOSKELETAL: e xtremities unremarkable, no clubbing, cyanosis or edema. PERIPHERAL PULSES: n ormal. NEUROLOGIC: a lert and oriented, cranial nerves 2-12 grossly intact, deep tendon reflexes 2+ symmetrical, motor strength normal upper and lower extremities, sensory exam intact. PSYCH: a lert, oriented. Assessment: * Assessment: 1. T hrombocytopenia - D69.6 N otes :The current platelet count is 127,000. He has had no bleeding or bruising.He will avoid aspirin. He will notify me if he has any manifestations of blood loss. 2 . T ype 2 diabetes mellitus without complication, without long-term current use of insulin - E11.9 N otes :His weight is stable. His hemoglobin A1c has dropped from 8.0 down to 7.7 to 7.6. He is consuming a diabetic diet and trying to lose weight and be active. 3 . F ormer smoker - Z87.891 N otes :He is highly motivated not to smoke anymore. We have creative plan to prevent relapse in times of stress and illness. Plan: * Treatment: 2. T ype 2 diabetes mellitus without complication, without long-term current use of insulin Continue FreeStyle Lite Test Strip, -, as directed, In Vitro, use to check blood sugar once a day;?Continue FreeStyle Lancets Miscellaneous, -, as directed, -, use to check blood sugar once a day; C ontinue FreeStyle Lite Kit, w/Device, as directed, -, use to check blood sugar once a day;?Continue Alcohol Pads Pad, 70 %, as directed, -, use to check blood sugar once a day; C ontinue Gauze Pads Pad, 3 X3 , as directed, -, use to test blood sugar once a day; C ontinue metFORMIN HCl Tablet, 1000 MG, 1 tablet, Orally, Once a day. 3. F ormer smoker Continue Aspirin Adult Low Dose. 4. O thers Continue Metoprolol Succinate ER Tablet Extended Release 24 Hour, 25 MG, TAKE ONE TABLET BY MOUTH ONCE DAILY; C ontinue Lisinopril Tablet, 5 MG, TAKE ONE TABLET BY MOUTH ONCE DAILY. * Images: * The named appointment provid er may or may not be the originator of this progress note, and it is not deemed complete until electronically signed by the appointment provider. Sign off status: Pending * Provider: Lazara Berman MD Date: Generated for Marco rogers/Mushtaq/Pamela on: 09:56 AM EDT History and Physical Notes * HPI (History of Present Illness) Category Sub-Category Detail Notes COVID-19 Screening Questions Have you had any new onset fever, chills, cough, congestion, sore throat, shortness of breath, muscle aches?: No Have you been exposed to the virus withi n the last 10 days?: No Have you travelled internationally in last 10 days?: No Have you been exposed to COVID-19 in the past?: No Examination Category Sub-Category Detail Notes General Examination GENERAL APPEARANCE: pleasant , well nourished, well developed, in no acute distress, calm and relaxed HEAD: atraumatic, normocep halic EYES: eomi, perrla, anicte shaniqua, conjugate EARS: normal NOSE: septum intact NECK/THYROID: no jugular venous di stention, no carotid bruit, thyroid normal HEART: no clicks, gallops, murmurs, or rubs, regular rhythm, S1, S2 normal, no s3, or vascular bruits LUNGS: clear to auscultatio n ABDOMEN: bowel sounds normal, no ascites, no organomegaly, no mass NEUROLOGIC: alert and oriented, cranial nerves 2-12 grossly intact, deep tendon reflexes 2+ symmetrical, motor strength normal upper and lower extremities, sensory exam intact SKIN: no suspicious lesion s, anicteric PERIPHERAL PULSES: normal BREASTS: no masses palpable b ilaterally MUSCULOSKELETAL: extremities unremark able, no clubbing, cyanosis or edema LYMPH NODES: no enlarged lymph no rolando,spleen normal RECTAL EXAM: not examined PSYCH: alert, oriented ORAL CAVITY: normal, unremarkable
--- OUTSIDE RECORDS SUMMARY | 2024-06-07 05:14 | XMS_ITS ---
Author Organization Richard Berman III, MD Address [address] [place] [address] [place] [address] Care Team Providers Care Dairy Technologist Name Role Phone Dr. Richard Berman III Primary Care Provider REASON FOR VISIT ? Rx Side Effects Social History Sex Assigned At : Social History Observation Description Sex Assigned At Male Encounters Encounter Location Date Provider Diagnosis Richard Berman III, MD [address] [place] [address] [place] [address] 06/07/2024 Richard Berman Plan Of Treatment Next Appt Details Provider Name:Richard Berman , 05/27/2025 03:15:00 PM, [address] [place] [address] [place], [address], Provider Name:Richard Berman , 12/01/2025 03:30:00 PM, [address] [place] [address] [place], [address], Progress Notes * Alfonso MANEDOB: 7 (69 yo M)Acc No.[id number]:06/07/2024 Patient: Alfonso JORDAN :1955 A ge:69 Y S ex:Male Address: [address] , [address], [place] [address] * true * Date: Generated for Marco rogers/Mushtaq/eTransmitting on: 1 09:58 AM EDT
--- OUTSIDE RECORDS SUMMARY | 2024-06-07 05:30 | XMS_ITS ---
Author Organization Richard Berman III, MD Address [address] [place] [address] Care Team Providers Care Dermatologist Name Role Phone Dr. Richard Berman III Primary Care Provider Allergies Allergen (clinical drug ingredient) Drug/Non Drug Allergy documented on EMR Reaction Allergy Type Onset Date Status No Known Drug Allergy Unknown Drug Allergy Active Reason For Referral Reason consultation and azalea atment for ? Meniere's Diagnosis 1 Vertigo (R42) Referral Organization Richard Berman III, MD Referring Provider First Name Richard Referring Provider Last Name Antonella Referring Provider Speciality Internal M edicine Referred Provider [facility] Referred Provider Specialty Otolaryngolo gy General Notes [place] Sweet CMA 06/11 10:26:37 AM > ref/demo/progress note/labs faxed to [facility], [place] Sweet CLAIMS COUNSEL 08/20/2024 02:07:39 PM > I called ENT pt has appt on 09/16/2024 at 3:30pm with hearing test first Referral Priority Routine Referral Appointment Date 09/16/2024 REASON FOR VISIT Right knee arthroplasty, [facility], July 02, 2024, Meniere's disease, Benign positional vertigo, Recent lightheadedness, Tinnitus Medications Medication SIG (Take, Route, Frequency, Duration) Notes Start Date End Date Status Lisinopril 5 MG TAKE ONE TABLET BY M OUTH ONCE DAILY Active FreeStyle Lite Test - as directed In Vit ro use to check blood sugar once a day 02/06/2023 Active Metoprolol Succinate ER 25 MG TAKE ONE TABLET BY MOUTH ONCE DAILY Active Atorvastatin Calcium 80 MG take 1 tablet by mouth every day Orally Once a day Active FreeStyle Lancets - as directed - use to check blood sugar once a day 02/06/2023 Active metFORMIN HCl 1000 MG 1 tablet Orally On ce a day 08/15/2023 Active Meclizine HCl 50 MG 1 tablet as needed O rally every 6 hrs prn vertigo 04/09/2024 Active Alcohol Pads 70 % as directed - use to check blood sugar once a day 02/06/2023 Active Gauze Pads 3 X3 as directed - use to test blood sugar once a day 02/06/2023 Active Aspirin Adult Low Dose Active FreeStyle Lite w/Device as directed - us e to check blood sugar once a day 02/06/2023 Active Social History Tobacco Use: Social History Observation Description Date Details (start date - stop date) Former Smoker NA - NA Sex Assigned At : Social History Observation Description Sex Assigned At Male Tobacco Use/Smoking Question Answer Notes Patient is a former smoker How long has it been since you last smoked? > 10 years Additional Findings: Tobacco Non-User Ex-cigaret te smoker Problems Problem Type SNOMED Code ICD Code Onset Dates Problem Status W/U Status Risk Notes Problem 462140613 Vertigo (R42) Active confirmed He had an acute episode of vertigo lasting 1 day several days ago that required him to leave work. It has now resolved. 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 He still has occasional vertigo when remains under the care of ENT. Problem Hyperlipidemia (55121183) Other hyperlipidemia (E78.4) Active confirmed Vital Signs Temperature 97.6 degrees Fahrenheit 06/07/20 24 Blood pressure systolic 135 mm Hg 06/07/20 24 Blood pressure diastolic 80 mm Hg 024 Heart Rate 58 /min 06/07/2024 Height 68 in 06/07/2024 Weight 228 lbs 06/07/2024 BMI 34.66 kg/m2 06/07/2024 Encounters Encounter Location Date Provider Diagnosis Richard Berman III, MD [address] [place] [address] [place] [address] 06/07/2024 Richard Berman Vertigo R42 ; Menier e's disease of both ears H81.03 ; Former smoker Z87.891 ; Thrombocytopenia D69.6 ; Umbilical hernia without obstruction and without gangrene K42.9 ; Type 2 diabetes mellitus without complication, without long-term current use of insulin E11.9 ; Other hyperlipidemia E78.4 ; Myocardial infarction, unspecified RI type, unspecified artery I21.9 and Obesity (BMI 35.0-39.9 without comorbidity) E66.01 Assessments Encounter Date Diagnosis (ICD Code) Assessment Notes T reatment Notes Treatment Clinical Notes 06/07/2024 Vertigo (ICD-10 - R42) He had an acute episode of vertigo lasting 1 day several days ago that required him to leave work. It has now resolved. 06/07/2024 Meniere's disease of both ears (ICD-10 - H81.03) It is possible he has this diagnosis. He has been referred to ENT for further evaluation and final diagnosis. An MRI of the brain has been ordered. 06/07/2024 Former smoker (ICD-1 0 - Z87.891) He is highly motivated not to smoke anymore. We have creative plan to prevent relapse in times of stress and illness. 06/07/2024 Thrombocytopenia (ICD-10 - D69.6) The current platelet count is 127,000. He has had no bleeding or bruising. He will avoid aspirin. He will notify me if he has any manifestations of blood loss. 06/07/2024 Umbilical hernia without obstruction and without gangrene (ICD-10 - K42.9) He has decided not to have the hernia repair at this time as it is minimally symptomatic. 06/07/2024 Type 2 diabetes mellitus without complication, without long-term current use of insulin (ICD-10 - E11.9) His weight is stable. His hemoglobin A1c has dropped from 8.0 down to 7.7 to 7.6. He is consuming a diabetic diet and trying to lose weight and be active. 06/07/2024 Other hyperlipidemia (ICD-10 - E78.4) 06/07/2024 Myocardial infarctio n, unspecified RI type, unspecified artery (ICD-10 - I21.9) He has had no further chest pain. He has had no episodes of syncope or diarrhea. Pheresis and he has been compliant with all his medications. He is stable at this time. Back to work. 06/07/2024 Obesity (BMI 35.0-39 .9 without comorbidity) (ICD-10 - E66.01) His weight remains in the obese range despite a 7 pound weight loss.. We reviewed the elements of his diabetic diet. We reviewed his weight loss strategy. We reviewed the barriers to weight loss at length. Plan Of Treatment Medication Medication Name Sig Start Date Stop Date Notes Lisinopril 5 MG TAKE ONE TABLET BY M OUTH ONCE DAILY FreeStyle Lite Test - as directed In Vit ro use to check blood sugar once a day 02/06/2023 Metoprolol Succinate ER 25 MG TAKE ONE T ABLET BY MOUTH ONCE DAILY Atorvastatin Calcium 80 MG take 1 tablet by mouth every day Orally Once a day FreeStyle Lancets - as directed - use to check blood sugar once a day 02/06/2023 metFORMIN HCl 1000 MG 1 tablet Orally Once a day Meclizine HCl 50 MG 1 tablet as needed O rally every 6 hrs prn vertigo 04/09/2024 Alcohol Pads 70 % as directed - use to check blood sugar once a day 02/06/2023 Gauze Pads 3 X3 as directed - use to test blood sugar once a day 02/06/2023 Aspirin Adult Low Dose FreeStyle Lite w/Device as directed - us e to check blood sugar once a day 02/06/2023 Referrals Referral Date Details 06/07/2024 06/07/2024, consulta tion and treatment for ? Meniere's, of [facility] [employer] [facility], [facility] Next Appt Details Follow Up: 1 Week, End of ne xt week, Reason: OV, To check blood pressure Provider Name:Richard Berman , 05/27/2025 03:15:00 PM, [address] [place] [address] [address], [place], [id number], Provider Name:Richard Castellon Berman , 12/01/2025 03:30:00 PM, [address] [place] [address] [address], [place], [phone], Progress Notes * Alfonso MANEDOB: (69 yo M)Acc No.[id number]:06/07/2024 Patient: Alfonso JORDAN Provider: Lazara Berman MD :[id number] A ge:69 Y S ex:Male Date:06/07/2024 Address:[address] [place], [place] [id number] Subjective: * Chief Complaints: * R ight knee arthroplasty, [facility], July 02, 2024Meniere's diseaseBenign positional vertigoRecent lightheadednessTinnitus * HPI: C OVID-19 Screening: Questions H ave you experienced fever, chills, cough, sore throat, shortness of breath, difficulty breathing, muscle aches, loss of taste or smell? N o H ave you been exposed to the virus within the last 10 days? N o H ave you travelled internationally in the last 10 days? N o H ave you been exposed to COVID-19 in the past? Y es * : The patient, a 69-year-old male, reported feeling dizzy in the morning around 8:00. He described the sensation as a woozy, spinning feeling that worsens with movement. He also reported having to be carried out of his workplace the previous day due to the severity of his symptoms. He mentioned experiencing discomfort in the back of his neck and a buzzing noise in his ear. The patient also reported having high blood pressure, which he usually measures at home. He has been working out at the gym and has been feeling good, except for the dizziness. The patient is scheduled for knee surgery in about 2.5 weeks. * ROS: G eneral/Constitutional: pain o nly normal aches and pains. C hills d enies.?Fatigue a dmits. F ever d enies. E NT: Decreased hearing i n both ears. R espiratory: Cough d enies. C ardiovascular: Chest pain with exertion d enies. D yspnea on exertion?denies. S hortness of breath d enies. G astrointestinal: Constipation o ccasional. D ecreased appetite d enies. D iarrhea d enies. H eartburn d enies. N ausea d enies. R ectal bleeding d enies. V omiting d enies. H ematology: bruising d enies. p etechiae d enies. S wollen glands n one have been noted. G enitourinary: Frequent urination o nce a night. M usculoskeletal: Muscle aches d enies. P ainful joints d enies. S ciatica d enies. W eakness d enies. S kin: Itching d enies. R paulie d enies. S kin lesion(s)?denies. N eurologic: Difficulty speaking d enies. D izziness d enies.?Headache d enies. L ow back pain t hat is chronic. P sychiatric: Depressed mood d enies. * Medical History: * Surgical History: c ardiac catheterization 03/2018 * Hospitalization/Major Diagno stic Procedure: c ardiac catheterization STEMI * Family History: F ather: alive 86 [...] History: T obacco Use: T obacco Use/Smoking P atient is a f ormer smoker H ow long has it been since you last smoked??> 10 years A dditional Findings: Tobacco Non-User E x-cigarette smoker Chayito castellon is and has three children. He was born in [place]. 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 * Medications: T akingMetoprolol Succinate ER 25 MG Tablet Extended Release 24 Hour TAKE ONE TABLET BY MOUTH ONCE DAILY Atorvastatin Calcium 80 MG Tablet take 1 tablet by mouth every day Orally Once a day Lisinopril 5 MG Tablet TAKE ONE TABLET BY MOUTH ONCE DAILY FreeStyle Lite Test - Strip as directed In Vitro use to check blood sugar once a day FreeStyle Lancets - Miscellaneous as directed - use to check blood sugar once a day FreeStyle Lite w/Device Kit as directed - use to check blood sugar once a day Alcohol Pads 70 % Pad as directed - use to check blood sugar once a day Gauze Pads 3 X3 Pad as directed - use to test blood sugar once a day Aspirin Adult Low Dose metFORMIN HCl 1000 MG Tablet 1 tablet Orally Once a day Meclizine HCl 50 MG Tablet 1 tablet as needed Orally every 6 hrs prn vertigo Medication List reviewed and reconciled with the patientTaking Metoprolol Succinate ER 25 MG Tablet Extended Release 24 Hour TAKE ONE TABLET BY MOUTH ONCE DAILY Taking Atorvastatin Calcium 80 MG Tablet take 1 tablet by mouth every day Orally Once a day Taking Lisinopril 5 MG Tablet TAKE ONE TABLET BY MOUTH ONCE DAILY Taking FreeStyle Lite Test - Strip as directed In Vitro use to check blood sugar once a day Taking FreeStyle Lancets - Miscellaneous as directed - use to check blood sugar once a day Taking FreeStyle Lite w/Device Kit as directed - use to check blood sugar once a day Taking Alcohol Pads 70 % Pad as directed - use to check blood sugar once a day Taking Gauze Pads 3 X3 Pad as directed - use to test blood sugar once a day Taking Aspirin Adult Low Dose Taking metFORMIN HCl 1000 MG Tablet 1 tablet Orally Once a day Taking Meclizine HCl 50 MG Tablet 1 tablet as needed Orally every 6 hrs prn vertigo Medication List reviewed and reconciled with the patient * Allergies: N o Known Drug Allergyno[Allergies Verified] Objective: * Vitals: H t: 68, Wt:228, BMI:34.66, BP:135/80, HR:58, Temp:97.6, Wt-k.42. * Examination: G eneral Examination: GENERAL APPEARANCE: p dylon, well nourished, well developed, in no acute distress, calm and relaxed, obese, man. HEAD: a traumatic, normocephalic. EYES: e rebecca, perrla, anicteric, conjugate. EARS: N ormal anatomy with mild hearing loss. NOSE: s eptum intact. ORAL CAVITY: n [...] sounds normal, no ascites, no organomegaly, no mass, centripital obesity, Large asymptomatic hiatal hernia. RECTAL EXAM: n ot examined. MUSCULOSKELETAL: e xtremities unremarkable, no clubbing, cyanosis or edema. PERIPHERAL PULSES: n ormal. NEUROLOGIC: a lert and oriented, cranial nerves 2-12 grossly intact, deep tendon reflexes 2+ symmetrical, motor strength normal upper and lower extremities, sensory exam intact, Vertigo, not present today, motion of the had no directions failed to produce any vertigo. PSYCH: a lert, oriented. Assessment: * Assessment: 1. M eniere's disease of both ears - H81.03 (Primary) N otes :It is possible he has this diagnosis. He has been referred to ENT for further evaluation and final diagnosis. An MRI of the brain has been ordered. 2 . V ertigo - R42 N otes :He had an acute episode of vertigo lasting 1 day several days ago that required him to leave work.? It has now resolved. 3 . F ormer smoker - Z87.891 N otes :He is highly motivated not to smoke anymore. We have creative plan to prevent relapse in times of stress and illness. 4 . T hrombocytopenia - D69.6 N otes :The current platelet count is 127,000. He has had no bleeding or bruising.He will avoid aspirin. He will notify me if he has any manifestations of blood loss. 5 . U mbilical hernia without obstruction and without gangrene - K42.9 ? N otes :He has decided not to have the hernia repair at this time as it is minimally symptomatic. 6 . T ype 2 diabetes mellitus without complication, without long-term current use of insulin - E11.9 N otes :His weight is stable. His hemoglobin A1c has dropped from 8.0 down to 7.7 to 7.6. He is consuming a diabetic diet and trying to lose weight and be active. 7 . O ther hyperlipidemia - E78.4 8 . M yocardial infarction, unspecified RI type, unspecified artery - I21.9 N otes :He has had no further chest pain. He has had no episodes of syncope or diarrhea. Pheresis and he has been compliant with all his medications. He is stable at this time. Back to work. 9 . O besity (BMI 35.0-39.9 without comorbidity) - E66.01 N otes :His weight remains in the obese range despite a 7 pound weight loss.. We reviewed the elements of his diabetic diet. We reviewed his weight loss strategy. We reviewed the barriers to weight loss at length. Plan: * Treatment: 2. V ertigo Referral To:of [facility] Otolaryngology Reason:consultation and treatment for ? Meniere's * Procedure Codes: * Preventive Medicine: Counseling: C are goal follow-up plan: Counseling for abnormal BMI given Y es Above Normal BMI Follow-up D ietary management education, guidance, and counseling, Dietary needs education, Exercise promotion: strength training, Exercise promotion: stretching, Feeding regime, Giving encouragement to exercise, Lifestyle education regarding diet, Nutrition / feeding management, Nutrition therapy, Prescribed activity/exercise education, Prescribed diet education, Prescribed dietary intake, Special diet education, Weight monitoring , Intervention, Order not done: Medical or Other reason not done S moking/Tobacco Use Patient counseled on the dangers of tobacco use and urged to quit. 1 08/07/2023 DM Care Plan: P atient Lifestyle Goals P atient wants to be able to manage diabetes without too much effort. T reatment Goals B lood Sugars less than < 115, HbA1C < 7.0. B arriers n o barriers. S elf-Managment Goals W ork on weight loss, with a goal of losing 1 lb per week. * Follow Up: 1 Week, End of next week (Reason: OV, To check blood pressure) * Images: * Sign off status: Completed true * Provider: Lazara Berman MD Date: 08/07/2023 Generated for Printi ng/Falakishag/eTransmitting on: 09:57 AM EDT History and Physical Notes * HPI (History of Present Illness) Category Sub-Category Detail Notes COVID-19 Screening Questions Have you had any new onset fever, chills, cough, congestion, sore throat, shortness of breath, muscle aches?: No Have you been exposed to the virus withi n the last 10 days?: No Have you travelled internationally in [facility] last 10 days?: No Have you been exposed to COVID-19 in the past?: Yes Examination Category Sub-Category Detail Notes General Examination GENERAL APPEARANCE: pleasant , well nourished, well developed, in no acute distress, calm and relaxed, obese, man HEAD: atraumatic, normocep halic EYES: eomi, perrla, anicte shaniqua, conjugate EARS: Normal anatomy with mild hearing loss NOSE: septum intact NECK/THYROID: no jugular venous di stention, no carotid bruit, thyroid normal HEART: no clicks, gallops, murmurs, or rubs, regular rhythm, S1, S2 normal, no s3, or vascular bruits LUNGS: clear to auscultatio n ABDOMEN: bowel sounds normal, no ascites, no organomegaly, no mass, centripital obesity, Large asymptomatic hiatal hernia NEUROLOGIC: alert and oriented, cranial nerves 2-12 grossly intact, deep tendon reflexes 2+ symmetrical, motor strength normal upper and lower extremities, sensory exam intact, Vertigo, not present today, motion of the had no directions failed to produce any vertigo SKIN: no suspicious lesion s, anicteric PERIPHERAL PULSES: normal BREASTS: no masses palpable b ilaterally MUSCULOSKELETAL: extremities unremark able, no clubbing, cyanosis or edema LYMPH NODES: no enlarged lymph no rolando,spleen normal RECTAL EXAM: not examined PSYCH: alert, oriented ORAL CAVITY: normal, unremarkable Consultation Request Notes Referral Date Referring Provider Referred Provider Not es 06/07/2024 Richard Berman [facility], of [facility] consultation and treatment for ? Meniere's
--- OUTSIDE RECORDS SUMMARY | 2024-06-14 09:45 | XMS_ITS ---
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 Richard Berman III Primary Care Provider Allergies Allergen (clinical drug ingredient) Drug/Non Drug Allergy documented on EMR Reaction Allergy Type Onset Date Status No Known Drug Allergy Unknown Drug Allergy Active REASON FOR VISIT Upcoming right kneee surgery July 02, 2024, Menieres disease, Osteoarthritis right knee Medications Medication SIG (Take, Route, Frequency, Duration) Notes Start Date End Date Status Aspirin Adult Low Dose Active Gauze Pads 3 X3 as directed - use to test blood sugar once a day 02/06/2023 Active Meclizine HCl 50 MG 1 tablet as needed O rally every 6 hrs prn vertigo 04/09/2024 Active metFORMIN HCl 1000 MG 1 tablet Orally On ce a day 08/15/2023 Active Alcohol Pads 70 % as directed - use to check blood sugar once a day 02/06/2023 Active Atorvastatin Calcium 80 MG take 1 tablet by mouth every day Orally Once a day Active FreeStyle Lite Test - as directed In Vit ro use to check blood sugar once a day 02/06/2023 Active Lisinopril 5 MG TAKE ONE TABLET BY M OUTH ONCE DAILY Active FreeStyle Lite w/Device as directed - [...] Problem Status W/U Status Risk Notes Problem [id number] Chronic ischemic heart disease, unspecified (I25.9) Active confirmed Problem Osteoarthritis of knee (547284596) Osteoarthritis of knee, unspecified (M17.9) Active confirmed He is scheduled for a right knee arthroplasty July 02, 2024. He is medically cleared for the procedure with general anesthesia from a primary care perspective. On 2024 he was seen by the cardiology practitioner for cardiac medical clearance. An EKG was done that day and showed sinus bradycardia with a rate of [address]-T wave changes. No acute changes were seen. An echocardiogram and a stress test were ordered. Echocardiogram has been done and showed a low normal ejection fractiion of 55%. There was no wall motion abnormality. All of the valves were normal. The stress test has not yet been done. He is medically cleared with the proviso that there was a stress test pending. Vital Signs Temperature 97.1 degrees Fahrenheit 06/14/20 24 Blood pressure systolic 134 mm Hg 06/14/20 24 Blood pressure diastolic 79 mm Hg 024 Heart Rate 61 /min 06/14/2024 Height 68 in 06/14/2024 Weight 227 lbs 06/14/2024 BMI 34.51 kg/m2 06/14/2024 Encounters Encounter Location Date Provider Diagnosis Richard Berman III, MD [address] [place] [address] [place] [address] 06/14/2024 Richard Berman Type 2 diabetes freedom itus without complication, without long-term current use of insulin E11.9 ; Osteoarthritis of knee, unspecified M17.9 ; Hyperlipidemia E78.5 ; Umbilical hernia without obstruction and without gangrene K42.9 ; Thrombocytopenia D69.6 ; Obesity (BMI 35.0-39.9 without comorbidity) E66.01 ; Former smoker Z87.891 ; BPH (benign prostatic hyperplasia) N40.0 and Meniere's disease of right ear H81.01 Assessments Encounter Date Diagnosis (ICD Code) Assessment Notes T reatment Notes Treatment Clinical Notes 06/14/2024 Type 2 diabetes mellitus without complication, without long-term current use of insulin (ICD-10 - E11.9) His weight is stable. His hemoglobin A1c has dropped from 8.0 down to 7.7 to 7.6. He is consuming a diabetic diet and trying to lose weight and be active. His fasting glucose is 138. 06/14/2024 Osteoarthritis of knee, unspecified (ICD-10 - M17.9) He is scheduled for a right knee arthroplasty July 02, 2024. He is medically cleared for the procedure with general anesthesia from a primary care perspective. On 2024 he was seen by the cardiology practitioner for cardiac medical clearance. An EKG was done that day and showed sinus bradycardia with a rate of [address]-T wave changes. No acute changes were seen. An echocardiogram and a stress test were ordered. Echocardiogram has been done and showed a low normal ejection fractiion of 55%. There was no wall motion abnormality. All of the valves were normal. The stress test has not yet been done. He is medically cleared with the proviso that there was a stress test pending. 06/14/2024 Hyperlipidemia (ICD- 10 - E78.5) His lipids are well controlled and no change in his regimen was necessary today. 06/14/2024 Umbilical hernia without obstruction and without gangrene (ICD-10 - K42.9) He has decided not to have the hernia repair at this time as it is minimally symptomatic. 06/14/2024 Thrombocytopenia (ICD-10 - D69.6) The current platelet count is 127,000. He has had no bleeding or bruising. He will avoid aspirin. He will notify me if he has any manifestations of blood loss. 06/14/2024 Obesity (BMI 35.0-39 .9 without comorbidity) (ICD-10 - E66.01) He has lost 1 pound. His body mass index is 34. We reviewed the elements of his diabetic diet. We reviewed his weight loss strategy. We reviewed the barriers to weight loss at length. 06/14/2024 Former smoker (ICD-1 0 - Z87.891) He is highly motivated not to smoke anymore. We have creative plan to prevent relapse in times of stress and illness. 06/14/2024 BPH (benign prostati c hyperplasia) (ICD-10 - N40.0) He rises from sleep once or twice a night to urinate. His medications were not changed. We discussed lifestyle modification as a way to reduce nocturia. 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 He had a recent flareup of vertigo that required him to leave work. No change was made in his medications today. The episode has resolved. Plan Of Treatment Medication Medication Name Sig Start Date Stop Date Notes Aspirin Adult Low Dose Gauze Pads 3 X3 as directed - use to test blood sugar once a day 02/06/2023 Meclizine HCl 50 MG 1 tablet as needed O rally every 6 hrs prn vertigo 04/09/2024 metFORMIN HCl 1000 MG 1 tablet Orally Once a day 4 Alcohol Pads 70 % as directed - use to check blood sugar once a day 02/06/2023 Atorvastatin Calcium 80 MG take 1 tablet by mouth every day Orally Once a day FreeStyle Lite Test - as directed In Vit ro use to check blood sugar once a day 02/06/2023 Lisinopril 5 MG TAKE ONE TABLET BY M OUTH ONCE DAILY FreeStyle Lite w/Device as directed - us e to check blood sugar once a day 02/06/2023 FreeStyle Lancets - as directed - use to check blood sugar once a day 02/06/2023 Metoprolol Succinate ER 25 MG TAKE ONE T ABLET BY MOUTH ONCE DAILY Next Appt Details Follow Up: After Jose Raul patten and before [facility], Reason: Post-surgery follow-up Provider Name:Richard Staufferrne , 05/27/2025 03:15:00 PM, [address] [place] [address] [address], [place], [address], Provider Name:Richard Germain Antonella , 12/01/2025 03:30:00 PM, [address] [place] [address] [address], [place], [phone], Progress Notes * Alfonso MANEDOB: [birth year] (69 yo M)Acc No.[id number]:06/14/2024 Progress Notes Patient: Alfonso JORDAN Provider: Lazara Berman MD :1955 A ge:69 Y S ex:Male Date:06/14/2024 Address:[address] [place], [place] [id number] Subjective: * Chief Complaints: * U pcoming right kneee surgery July 02, 2024Menieres diseaseOsteoarthritis right knee * HPI: C OVID-19 Screening: Questions H [...] * : The patient, a 69-year-old male, presented with a history of vertigo attacks. He reported experiencing a severe episode of vertigo on June 07, which forced him to leave work early. The patient described feeling drained of energy, experiencing headaches, and feeling woozy over the weekend following the attack. He also reported feeling woozy on June 14, but the symptoms passed after taking meclizine. The patient also reported having a blocked ear and buzzing in his ear. He has a history of diabetes, with a recent A1C level of 7.6-7.8. He also reported a history of a heart attack, after which he made significant changes to his diet. The patient is scheduled for knee replacement surgery on July 02. Blood Sugar Level is 7.6-7.8. * ROS: G eneral/Constitutional: pain R ight knee, otherwise only normal aches and pains.?Chills d enies. F atigue a dmits. F ever d enies. E NT: Decreased hearing i n the right ear. R espiratory: Cough d enies. C ardiovascular: [...] History: * Surgical History: c ardiac catheterization 03/2018No history * Hospitalization/Major Diagno stic Procedure: c ardiac catheterization STEMI No history * Family History: F ather: alive 86 [...] dditional Findings: Tobacco Non-User E x-cigarette smoker H e is and has three children. He was born in [place]. 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 * Medications: T akingMetoprolol Succinate ER 25 [...] needed Orally every 6 hrs prn vertigo Taking Metoprolol Succinate ER 25 MG Tablet Extended [...] needed Orally every 6 hrs prn vertigo * Allergies: N o Known Drug Allergyno[Allergies Verified] Objective: * Vitals: H t: 68, Wt:227, BMI:34.51, BP:134/79, HR:61, Temp:97.1, Wt-k.97. * P ast Orders: L ab:Hemoglobin A1c (Order Date - 04/06/2024) (Collection Date & Time - 04/06/2024 09:21 AM) Value Reference Range Hemoglobin A1c % 7.6 H <6.0 - % Estimated Average Glucose 171 - mg/dL Lab:Lipid Panel * Collection Date 04/06/2024 12/02/2023 08/15/2023 Collection Time 09:21 AM 08:41 AM 08:48 AM Order Date 04/06/2024 12/02/2023 08/15/2023 Triglycerides 79 (Ref Range: <150 mg/dL) 97 (Ref Range: <150 mg/dL) 102 (Ref Range: <150 mg/dL) Cholesterol 122 (Ref Range: <200 mg/dL) 147 (Ref Range: <200 mg/dL) 149 (Ref Range: <200 mg/dL) LDL Cholesterol Calculated 63 (Ref Range: <100 mg/dL) 84 (Ref Range: <100 mg/dL) 83 (Ref Range: <100 mg/dL) HDL Cholesterol 44 (Ref Range: >40 mg/dL) 44 (Ref Range: >40 mg/dL) 46 (Ref Range: >40 mg/dL) * Lab:Comprehensive [place]. Pane l Fast * Collection Date 04/06/2024 08/15/2023 05/08/2023 Collection Time 09:21 AM 08:48 AM 08:44 AM Order Date 04/06/2024 08/15/2023 05/08/2023 Sodium 136 (Ref Range: 135-145 mmol/L) 139 (Ref Range: 135-145 mmol/L) 138 (Ref Range: 135-145 mmol/L) Bilirubin Total 1.0 (Ref Range: 0.0-1.0 mg/dL) 1.3 H (Ref Range: 0.0-1.0 mg/dL) 1.4 H (Ref Range: 0.0-1.0 mg/dL) Aspartate Amino Transferase 18 (Ref Range: 5-37 U/L) 17 (Ref Range: 5-37 U/L) 19 (Ref Range: 5-37 U/L) Alanine Aminotransferase 20 (Ref Range: 0-40 U/L) 20 (Ref Range: 0-40 U/L) 16 (Ref Range: 0-40 U/L) Total Protein 6.9 (Ref Range: 6.5-8.0 g/dL) 7.4 (Ref Range: 6.5-8.0 g/dL) 7.0 (Ref Range: 6.5-8.0 g/dL) Albumin Level 4.1 (Ref Range: 3.5-5.0 g/dL) 4.3 (Ref Range: 3.5-5.0 g/dL) 4.2 (Ref Range: 3.5-5.0 g/dL) Alkaline Phosphatase 74 (Ref Range: 39-117 U/L) 84 (Ref Range: 39-117 U/L) 78 (Ref Range: 39-117 U/L) Potassium 4.2 (Ref Range: 3.3-5.1 mmol/L) 5.0 (Ref Range: 3.3-5.1 mmol/L) 4.7 (Ref Range: 3.3-5.1 mmol/L) Chloride 105 (Ref Range: 96-108 mmol/L) 104 (Ref Range: 96-108 mmol/L) 106 (Ref Range: 96-108 mmol/L) Carbon Dioxide 23 (Ref Range: 22-29 mmol/L) 27 (Ref Range: 22-29 mmol/L) 22 (Ref Range: 22-29 mmol/L) Anion Gap 12 (Ref Range: 12-20) 13 (Ref Range: 12-20) 15 (Ref Range: 12-20) Blood Urea Nitrogen 18 H (Ref Range: 9-16 mg/dL) 20 H (Ref Range: 9-16 mg/dL) 20 H (Ref Range: 9-16 mg/dL) Creatinine 1.08 (Ref Range: 0.5-1.4 mg/dL) 0.99 (Ref Range: 0.5-1.4 mg/dL) 0.90 (Ref Range: 0.5-1.4 mg/dL) Estimated Glomerular Filt Rate > 60 > 60 > 60 Glucose Fasting 138 H (Ref Range: 60-99 mg/dL) 155 H (Ref Range: 60-99 mg/dL) 148 H (Ref Range: 60-99 mg/dL) Calcium 9.3 (Ref Range: 8.4-10.2 mg/dL) 9.8 (Ref Range: 8.4-10.2 mg/dL) 9.3 (Ref Range: 8.4-10.2 mg/dL) * Lab:Complete Blood Count Aut o Diff * Collection Date 04/06/2024 12/02/2023 08/15/2023 Collection Time 09:21 AM 08:41 AM 08:48 AM Order Date 04/06/2024 12/02/2023 08/15/2023 White Blood Count 4.9 (Ref Range: 4.8-10.8 X10*3/uL) 5.9 (Ref Range: 4.8-10.8 X10*3/uL) 5.1 (Ref Range: 4.8-10.8 X10*3/uL) Red Blood Count 5.18 (Ref Range: 4.60-5.80 X10*6/uL) 5.23 (Ref Range: 4.60-5.80 X10*6/uL) 5.52 (Ref Range: 4.60-5.80 X10*6/uL) Hemoglobin 14.8 (Ref Range: 14.0-18.0 g/dl) 15.2 (Ref Range: 14.0-18.0 g/dl) 15.9 (Ref Range: 14.0-18.0 g/dl) Hematocrit 44.5 (Ref Range: 42.0-52.0 %) 45.3 (Ref Range: 42.0-52.0 %) 48.3 (Ref Range: 42.0-52.0 %) Mean Corpuscular Volume 85.9 (Ref Range: 80.0-98.0 fL) 86.6 (Ref Range: 80.0-98.0 fL) 87.5 (Ref Range: 80.0-98.0 fL) Mean Corpuscular Hemoglobin 28.6 (Ref Range: 27.0-33.0 pg) 29.1 (Ref Range: 27.0-33.0 pg) 28.8 (Ref Range: 27.0-33.0 pg) Mean Corpuscular HGB Conc 33.3 (Ref Range: 31.0-36.0 g/dl) 33.6 (Ref Range: 31.0-36.0 g/dl) 32.9 (Ref Range: 31.0-36.0 g/dl) Red Cell Distribution Width 13.6 (Ref Range: 11.0-16.0 %) 13.6 (Ref Range: 11.0-16.0 %) 13.2 (Ref Range: 11.0-16.0 %) Platelet Count 127 L (Ref Range: 160-400 X10*3/uL) 128 L (Ref Range: 160-400 X10*3/uL) 125 L (Ref Range: 160-400 X10*3/uL) Mean Platelet Volume 11.9 (Ref Range: 9.4-12.4 fL) 11.4 (Ref Range: 9.4-12.4 fL) 12.1 (Ref Range: 9.4-12.4 fL) Neutrophils Percent Auto 60.5 (Ref Range: 45-73 %) 54.1 (Ref Range: 45-73 %) 56.2 (Ref Range: 45-73 %) Imm Gran Pct Auto 0.2 (Ref Range: 0.0-0.4 %) 0.3 (Ref Range: 0.0-0.4 %) 0.4 (Ref Range: 0.0-0.4 %) Lymphocytes Percent Auto 27.6 (Ref Range: 20-40 %) 32.0 (Ref Range: 20-40 %) 30.5 (Ref Range: 20-40 %) Monocytes Percent Auto 7.8 (Ref Range: 2-11 %) 8.9 (Ref Range: 2-11 %) 8.9 (Ref Range: 2-11 %) Eosinophils Percent Auto 3.5 (Ref Range: 0-4 %) 3.8 (Ref Range: 0-4 %) 3.0 (Ref Range: 0-4 %) Basophils Percent Auto 0.4 (Ref Range: 0-2 %) 0.9 (Ref Range: 0-2 %) 1.0 (Ref Range: 0-2 %) NRBC Pct Auto 0.0 (Ref Range: 0.0-0.2 /100WBC) 0.0 (Ref Range: 0.0-0.2 /100WBC) 0.0 (Ref Range: 0.0-0.2 /100WBC) Neutrophils Absolute Auto 2.9 (Ref Range: 2.0-8.3 x10*3/uL) 3.2 (Ref Range: 2.0-8.3 x10*3/uL) 2.9 (Ref Range: 2.0-8.3 x10*3/uL) Imm Gran Abs Auto 0.01 (Ref Range: 0.00-0.03 X10*3/uL) 0.02 (Ref Range: 0.00-0.03 X10*3/uL) 0.02 (Ref Range: 0.00-0.03 X10*3/uL) Lymphocytes Absolute Auto 1.3 (Ref Range: 1.2-4.9 X10*3/uL) 1.9 (Ref Range: 1.2-4.9 X10*3/uL) 1.6 (Ref Range: 1.2-4.9 X10*3/uL) Monocytes Absolute Auto 0.4 (Ref Range: 0.1-1.2 X10*3/uL) 0.5 (Ref Range: 0.1-1.2 X10*3/uL) 0.5 (Ref Range: 0.1-1.2 X10*3/uL) Eosinophils Absolute Auto 0.2 (Ref Range: 0.0-0.4 X10*3/uL) 0.2 (Ref Range: 0.0-0.4 X10*3/uL) 0.2 (Ref Range: 0.0-0.4 X10*3/uL) Basophils Absolute Auto 0.0 (Ref Range: 0.0-0.2 X10*3/uL) 0.1 (Ref Range: 0.0-0.2 X10*3/uL) 0.1 (Ref Range: 0.0-0.2 X10*3/uL) NRBC Abs Auto 0.000 (Ref Range: 0.0-0.012 X10*3/uL) 0.000 (Ref Range: 0.0-0.012 X10*3/uL) 0.000 (Ref Range: 0.0-0.012 X10*3/uL) * Examination: G eneral Examination: GENERAL APPEARANCE: p leasant, well nourished, well developed, in no acute distress, calm and relaxed, obese, man. HEAD: a traumatic, normocephalic. EYES: e rebecca, perrla, anicteric, conjugate. EARS: N ormal anatomy without cerumen. NOSE: s eptum intact. ORAL CAVITY: n [...] ascites, no organomegaly, no mass, centripital obesity, Reducible umbilical hernia. RECTAL EXAM: n ot examined. MUSCULOSKELETAL: e xtremities unremarkable, no clubbing, cyanosis or edema, Crepitus both knees. PERIPHERAL PULSES: n ormal. NEUROLOGIC: a lert and oriented, cranial nerves 2-12 grossly intact, deep tendon reflexes 2+ symmetrical, motor strength normal upper and lower extremities, sensory exam intact. PSYCH: a lert, oriented, thought process logical, goal directed, speech clear, good eye contact, cooperative with exam, cognitive function intact. ? Assessment: * Assessment: 1. T ype 2 diabetes mellitus without complication, without long-term current use of insulin - E11.9 (Primary) N otes :His weight is stable. His hemoglobin A1c has dropped from 8.0 down to 7.7 to 7.6. He is consuming a diabetic diet and trying to lose weight and be active. His fasting glucose is 138. 2 . O steoarthritis of knee, unspecified - M17.9 N otes :He is scheduled for a right knee arthroplasty July 02, 2024. He is medically cleared for the procedure with general anesthesia from a primary care perspective. On 2024 he was seen by the cardiology practitioner for cardiac medical clearance. An EKG was done that day and showed sinus bradycardia with a rate of [address]-T wave changes. No acute changes were seen. An echocardiogram and a stress test were ordered. Echocardiogram has been done and showed a low normal ejection fractiion of 55%. There was no wall motion abnormality. All of the valves were normal. The stress test has not yet been done. He is medically cleared with the proviso that there was a stress test pending. 3 . H yperlipidemia - E78.5 N otes :His lipids are well controlled and no change in his regimen was necessary today. 4 . U mbilical hernia without obstruction and without gangrene - K42.9 ? N otes :He has decided not to have the hernia repair at this time as it is minimally symptomatic. 5 . T hrombocytopenia - D69.6 N otes :The current platelet count is 127,000. He has had no bleeding or bruising.He will avoid aspirin. He will notify me if he has any manifestations of blood loss. 6 . O besity (BMI 35.0-39.9 without comorbidity) - E66.01 N otes :He has lost 1 pound. His body mass index is 34. We reviewed the elements of his diabetic diet. We reviewed his weight loss strategy. We reviewed the barriers to weight loss at length. 7 . F ormer smoker - Z87.891 N otes :He is highly motivated not to smoke anymore. We have creative plan to prevent relapse in times of stress and illness. 8 . B PH (benign prostatic hyperplasia) - N40.0 N otes :He rises from sleep once or twice a night to urinate. His medications were not changed. We discussed lifestyle modification as a way to reduce nocturia. 9 . M eniere's disease of right ear - H81.01 N otes :He is being followed by ENT. He had a recent flareup of vertigo that required him to leave work. No change was made in his medications today. The episode has resolved. Plan: * Treatment: * Procedure Codes: * Preventive Medicine: Counseling: C are goal follow-up plan: Counseling for abnormal BMI given Y es Above Normal BMI Follow-up D ietary management education, guidance, and counseling, Dietary needs education S moking/Tobacco Use Patient counseled on the dangers of tobacco use and urged to quit. 1 08/14/2023 DM Care Plan: P atient Lifestyle Goals P atient wants to be able to manage diabetes without too much effort. T reatment Goals H bA1C < 7.0, Blood Sugars less than < 115. B arriers n o barriers. S elf-Managment Goals W ork on weight loss, with a goal of losing 1 lb per week. * Follow Up: A fter Thanks and before [place] (Reason: Post-surgery follow-up) * Images: * Sign off status: Completed true * Provider: Lazara Berman MD Date: 08/14/2023 Generated for Printi ng/Faxing/eTransmitting on: 09:58 AM EDT History and Physical Notes * HPI (History of Present Illness) Category Sub-Category Detail Notes COVID-19 Screening Questions Have you had any new onset fever, chills, cough, congestion, sore throat, shortness of breath, muscle aches?: No Have you been exposed to the virus withi n the last 10 days?: No Have you travelled internationally in e last 10 days?: No Have you been exposed to COVID-19 in the past?: Yes Examination Category Sub-Category Detail Notes General Examination GENERAL APPEARANCE: pleasant , well nourished, well developed, in no acute distress, calm and relaxed, obese, man HEAD: atraumatic, normocep halic EYES: eomi, perrla, anicte shaniqua, conjugate EARS: Normal anatomy witho ut cerumen NOSE: septum intact NECK/THYROID: no jugular venous di stention, no carotid bruit, thyroid normal HEART: no clicks, gallops, murmurs, or rubs, regular rhythm, S1, S2 normal, no s3, or vascular bruits LUNGS: clear to auscultatio n ABDOMEN: bowel sounds normal, no ascites, no organomegaly, no mass, centripital obesity, Reducible umbilical hernia NEUROLOGIC: alert and oriented, cranial nerves 2-12 grossly intact, deep tendon reflexes 2+ symmetrical, motor strength normal upper and lower extremities, sensory exam intact SKIN: no suspicious lesion s, anicteric PERIPHERAL PULSES: normal BREASTS: no masses palpable b ilaterally MUSCULOSKELETAL: extremities unremark able, no clubbing, cyanosis or edema, Crepitus both knees LYMPH NODES: no enlarged lymph no rolando,spleen normal RECTAL EXAM: not examined PSYCH: alert, oriented, tho ught process logical, goal directed, speech clear, good eye contact, cooperative with exam, cognitive function intact ORAL CAVITY: normal, unremarkable
--- OUTSIDE RECORDS SUMMARY | 2024-07-19 10:15 | XMS_ITS ---
Author Organization Richard Berman III, MD Address [address] [place] [address] [place] [address] Care Team Providers Care Private Duty Rn Name Role Phone Dr. Richard Berman III Primary Care Provider Allergies Allergen (clinical drug ingredient) Drug/Non Drug Allergy documented on EMR Reaction Allergy Type Onset Date Status No Known Drug Allergy Unknown Drug Allergy Active REASON FOR VISIT Right kneee reeplacement 2 weeks [facility], Obesity, Umbilical hernia, Thrombocytopenia, Hyperlipidemia, Coronary artery disease, Lumbar radiculopathy, Benign prostatic hypertrophy, Meniere's disease of the right ear Medications Medication SIG (Take, Route, Frequency, Duration) Notes Start Date End Date Status Metoprolol Succinate ER 25 MG TAKE ONE TABLET BY MOUTH ONCE DAILY Active Atorvastatin Calcium 80 MG take 1 tablet by mouth every day Orally Once a day Active Meclizine HCl 50 MG 1 tablet as needed O rally every 6 hrs prn vertigo 04/09/2024 Active Lisinopril 5 MG TAKE ONE TABLET BY M OUTH ONCE DAILY Active oxyCODONE HCl 5 MG TAKE 1 TO 2 TABLETS BY MOUTH EVERY 4 HOURS NEEDED FOR SEVERE PAIN Oral Active metFORMIN HCl 1000 MG 1 tablet Orally On ce a day 08/15/2023 Active Eliquis 2.5 MG TAKE 1 TABLET BY ANKITA TH 2 TIMES A DAY FOR 30 DAYS Oral Active traMADol HCl 50 MG TAKE 1 TO 2 TABLETS BY MOUTH EVERY 6 HOURS NEEDED FOR MILD PAIN. *DO NOT EXCEED 8 TABLETS (400MG) PER DAY* Oral Active Gauze Pads 3 X3 as directed - use to test blood sugar once a day 02/06/2023 Active Aspirin Adult Low Dose Active FreeStyle Lite Test - as directed [...] Additional Findings: Tobacco Non-User Ex-cigaret te smoker Vital Signs Temperature 97.2 degrees Fahrenheit 07/19/20 24 Blood pressure systolic 139 mm Hg 07/19/20 24 Blood pressure diastolic 65 mm Hg 024 Heart Rate 70 /min 07/19/2024 Height 68 in 07/19/2024 Weight 220 lbs 07/19/2024 BMI 33.45 kg/m2 07/19/2024 Encounters Encounter Location Date Provider Diagnosis Richard Berman III, MD [address] [place] [address] [address] [place], [place] [address] 07/19/2024 Richard Berman Type 2 diabetes freedom itus without complication, without long-term current use of insulin E11.9 ; Myocardial infarction, unspecified NJ type, unspecified artery I21.9 ; Former smoker Z87.891 ; Thrombocytopenia D69.6 ; Umbilical hernia without obstruction and without gangrene K42.9 ; Hyperlipidemia E78.5 ; Coronary artery disease involving campo coronary artery of campo heart without angina pectoris I25.10 ; BPH (benign prostatic hyperplasia) N40.0 ; Obesity (BMI 35.0-39.9 without comorbidity) E66.01 and Status post right knee replacement Z96.651 Assessments Encounter Date Diagnosis (ICD Code) Assessment Notes T reatment Notes Treatment Clinical Notes 07/19/2024 Type 2 diabetes mellitus without complication, without long-term current use of insulin (ICD-10 - E11.9) His weight is stable. His hemoglobin A1c has dropped from 8.0 down to 7.7 to 7.6. He is consuming a diabetic diet and trying to lose weight and be active. His fasting glucose is 138. 07/19/2024 Myocardial infarctio n, unspecified NJ type, unspecified artery (ICD-10 - I21.9) He has had no further chest pain. He has had no episodes of syncope or diarrhea. Pheresis and he has been compliant with all his medications. He is stable at this time. Back to work. 07/19/2024 Former smoker (ICD-1 0 - Z87.891) He is highly motivated not to smoke anymore. We have creative plan to prevent relapse in times of stress and illness. 07/19/2024 Thrombocytopenia (ICD-10 - D69.6) The current platelet count is 127,000. He has had no bleeding or bruising. He will avoid aspirin. He will notify me if he has any manifestations of blood loss. 07/19/2024 Umbilical hernia without obstruction and without gangrene (ICD-10 - K42.9) He has decided not to have the hernia repair at this time as it is minimally symptomatic. 07/19/2024 Hyperlipidemia (ICD- 10 - E78.5) His lipids are well controlled and no change in his regimen was necessary today. 07/19/2024 Coronary artery disease involving campo coronary artery of campo heart without angina pectoris (ICD-10 - I25.10) He has had no exertional or at rest angina since his last visit. The current regimen was continued. He has up-to-date with cardiology. 07/19/2024 BPH (benign prostati c hyperplasia) (ICD-10 - N40.0) He rises from sleep once or twice a night to urinate. His medications were not changed. We discussed lifestyle modification as a way to reduce nocturia. 07/19/2024 Obesity (BMI 35.0-39 .9 without comorbidity) (ICD-10 - E66.01) He has lost 7 pounds and weighs 220. His boddy mass index is 33.45. We diisscussed a strategy by which she would not regaain the lost weight and would conttinue to lose weight at a rate of one half of a pound per week. 07/19/2024 Status post right kn ee replacement (ICD-10 - Z96.651) He is doing well. The right leg is not very swollen and is regaining mobility. The wound is healing well with no sign of infection. He is ambulatory with a cane. Plan Of Treatment Medication Medication Name Sig Start Date Stop Date Notes Metoprolol Succinate ER 25 MG TAKE ONE T ABLET BY MOUTH ONCE DAILY Atorvastatin Calcium 80 MG take 1 tablet by mouth every day Orally Once a day Meclizine HCl 50 MG 1 tablet as needed O rally every 6 hrs prn vertigo 04/09/2024 Lisinopril 5 MG TAKE ONE TABLET BY M OUTH ONCE DAILY oxyCODONE HCl 5 MG TAKE 1 TO 2 TABLETS BY MOUTH EVERY 4 HOURS NEEDED FOR SEVERE PAIN Oral metFORMIN HCl 1000 MG 1 tablet Orally Once a day 4 Eliquis 2.5 MG TAKE 1 TABLET BY ANKITA TH 2 TIMES A DAY FOR 30 DAYS Oral traMADol HCl 50 MG TAKE 1 TO 2 TABLETS BY MOUTH EVERY 6 HOURS NEEDED FOR MILD PAIN. *DO NOT EXCEED 8 TABLETS (400MG) PER DAY* Oral Gauze Pads 3 X3 as directed - use to test blood sugar once a day 02/06/2023 Aspirin Adult Low Dose FreeStyle Lite Test - as directed In Vit ro use to check blood sugar once a day 02/06/2023 FreeStyle Lancets - as directed - use to check blood sugar once a day 02/06/2023 FreeStyle Lite w/Device as directed - us e to check blood sugar once a day 02/06/2023 Alcohol Pads 70 % as directed - use to check blood sugar once a day 02/06/2023 Next Appt Details Follow Up: Six weeks, Reason : Check mobility and blood sugar levels Provider Name:Richard Parrane , 05/27/2025 03:15:00 PM, [address] [place] [address] [address] [place], [place], [address], Provider Name:Richard Berman , 12/01/2025 03:30:00 PM, [address] [place] [address] [place], [address], Progress Notes * Alfonso MANEDOB: 7 (69 yo M)Acc No.[id number]:07/19/2024 Progress Notes Patient: Alfonso JORDAN Provider: Lazara Berman MD :[id number] A ge:69 Y S ex:Male Date:07/19/2024 Address:[address] [place] [address] , P.[facility] Subjective: * Chief Complaints: * R [facility]esityUmbilical herniaThrombocytopeniaHyperlipidemiaCoronary artery diseaseLumbar radiculopathyBenign prostatic hypertrophyMeniere's disease of the right ear * HPI: C OVID-19 Screening: Questions H ave you had any new onset fever, chills, cough, congestion, sore throat, shortness of breath, muscle aches? N o * : The patient, a 69-year-old male, reported experiencing discomfort and phantom pains in his right leg, which had recently undergone surgery. The pain was particularly severe during the first week post-surgery, but has since improved. The patient also reported some swelling in the knee, which he attributed to physical therapy. He has been taking oxycodone to manage the pain, but is trying to limit his intake. The patient also reported a loss of appetite and subsequent weight loss since the surgery. He also experienced a temporary increase in blood sugar levels immediately after the surgery, which he was told was due to the stress of the procedure. The patient also reported a surprising improvement in his hearing post-surgery, which he speculated might be due to the antibiotics he was given. The patient is currently not on insulin and is taking his regular medication. Blood Sugar Level is 131. * ROS: G eneral/Constitutional: pain r ight knee incision, otherwise only normal aches and pains. C hills d enies. F atigue a dmits. F ever d enies. A dmits W eight loss. E NT: Decreased hearing m ild. R espiratory: Cough d enies. C ardiovascular: [...] enies. S ciatica d enies. W eakness t hat is generalized. S kin: Itching d enies. R paulie d enies. S kin lesion(s)?denies. N eurologic: Difficulty speaking d enies. D izziness d enies.?Headache d enies. L ow back pain d enies. P sychiatric: Depressed mood d enies. A dmits L oss of appetite.? * Medical History: * Surgical History: c ardiac catheterization 03/2018No history Right leg surgery * Hospitalization/Major Diagno stic Procedure: c ardiac catheterization STEMI No history Hospitalization for right leg surgery at [facility] * Family History: F ather: alive 86 yrs, ulcers, hepatitis c through blood transfusion, hyperlipidemia, diagnosed with Hyperlipidemia. M other: 69 yrs, alcoholism, drug abuse, breast cancer, myocardial infarction, coma, diagnosed with Cancer. S on(s): . 2 brother(s) , 2 sister(s) . 2 [...] has three children. He was born in [place]. 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 * Medications: T akingMetoprolol Succinate ER 25 [...] needed Orally every 6 hrs prn vertigo Eliquis 2.5 MG Tablet TAKE 1 TABLET BY MOUTH 2 TIMES A DAY FOR 30 DAYS Oral traMADol HCl 50 MG Tablet TAKE 1 TO 2 TABLETS BY MOUTH EVERY 6 HOURS NEEDED FOR MILD PAIN. *DO NOT EXCEED 8 TABLETS (400MG) PER DAY* Oral oxyCODONE HCl 5 MG Tablet TAKE 1 TO 2 TABLETS BY MOUTH EVERY 4 HOURS NEEDED FOR SEVERE PAIN Oral Medication List reviewed and reconciled with the [...] Orally every 6 hrs prn vertigo Taking Eliquis 2.5 MG Tablet TAKE 1 TABLET BY MOUTH 2 TIMES A DAY FOR 30 DAYS Oral Taking traMADol HCl 50 MG Tablet TAKE 1 TO 2 TABLETS BY MOUTH EVERY 6 HOURS NEEDED FOR MILD PAIN. *DO NOT EXCEED 8 TABLETS (400MG) PER DAY* Oral Taking oxyCODONE HCl 5 MG Tablet TAKE 1 TO 2 TABLETS BY MOUTH EVERY 4 HOURS NEEDED FOR SEVERE PAIN Oral Medication List reviewed and reconciled with the patient * Allergies: N o Known Drug Allergyno[Allergies Verified] Objective: * Vitals: H t: 68, Wt:220, BMI:33.45, BP:139/65, HR:70, Temp:97.2, Wt-k.79. * Examination: G eneral Examination: GENERAL APPEARANCE: p leasant, well nourished, well developed, in no acute distress, calm and relaxed, obese, man, obese, man. HEAD: a traumatic, normocephalic. EYES: [...] ascites, no organomegaly, no mass, centripital obesity, centripital obesity. RECTAL EXAM: n ot examined. MUSCULOSKELETAL: e xtremities unremarkable, no clubbing, cyanosis or edema,Surgical incision over anterior right knee with no sign of infection, moderate swellingg. PERIPHERAL PULSES: n ormal. NEUROLOGIC: a lert and oriented, cranial nerves 2-12 grossly intact, deep tendon reflexes 2+ symmetrical, motor strength normal upper and lower extremities, sensory exam intact. PSYCH: a lert, oriented, cognitive function intact, thought process logical, goal directed. Assessment: * Assessment: 1. M yocardial infarction, unspecified NJ type, unspecified artery - I21.9 (Primary) N otes :He has had no further chest pain. He has had no episodes of syncope or diarrhea. Pheresis and he has been compliant with all his medications. He is stable at this time. Back to work. 2 . T ype 2 diabetes mellitus without complication, without long-term current use of insulin - E11.9 N otes :His weight is stable. His hemoglobin A1c has dropped from 8.0 down to 7.7 to 7.6. He is consuming a diabetic diet and trying to lose weight and be active. His fasting glucose is 138. 3 . F ormer smoker - Z87.891 [...] as it is minimally symptomatic. 6 . H yperlipidemia - E78.5 N otes :His lipids are well controlled and no change in his regimen was necessary today. 7 . C oronary artery disease involving campo coronary artery of campo heart without angina pectoris - I25.10 N otes :He has had no exertional or at rest angina since his last visit. The current regimen was continued. He has up-to-date with cardiology. 8 . B PH (benign prostatic hyperplasia) - N40.0 N otes :He rises from sleep once or twice a night to urinate. His medications were not changed. We discussed lifestyle modification as a way to reduce nocturia. 9 . O besity (BMI 35.0-39.9 without comorbidity) - E66.01 N otes :He has lost 7 pounds and weighs 220. His boddy mass index is 33.45. We diisscussed a strategy by which she would not regaain the lost weight and would conttinue to lose weight at a rate of one half of a pound per week. 1 0. S kellen post right knee replacement - Z96.651 N otes :He is doing well. The right leg is not very swollen and is regaining mobility. The wound is healing well with no sign of infection. He is ambulatory with a cane. Plan: * Treatment: 2. T ype 2 diabetes mellitus without complication, without long-term current use of insulin Continue Metoprolol Succinate ER Tablet Extended Release 24 Hour, 25 MG, TAKE ONE TABLET BY MOUTH ONCE DAILY; C ontinue Atorvastatin Calcium Tablet, 80 MG, take 1 tablet by mouth every day, Orally, Once a day; C ontinue Lisinopril Tablet, 5 MG, TAKE ONE TABLET BY MOUTH ONCE DAILY; C ontinue FreeStyle Lite Test Strip, -, as directed, In Vitro, use to check blood sugar once a day; C ontinue FreeStyle Lancets Miscellaneous, -, as directed, -, use to check blood sugar once a day;?Continue FreeStyle Lite Kit, w/Device, as directed, -, use to check blood sugar once a day; C ontinue Alcohol Pads Pad, 70 %, as directed, -, use to check blood sugar once a day; C ontinue Gauze Pads Pad, 3 X3 , as directed, -, use to test blood sugar once a day; C ontinue Aspirin Adult Low Dose; C ontinue metFORMIN HCl Tablet, 1000 MG, 1 tablet, Orally, Once a day; C ontinue Meclizine HCl Tablet, 50 MG, 1 tablet as needed, Orally, every 6 hrs prn vertigo. L AB: PROFILE, RANDOM (COMPREHENSIVE METABOLIC) L AB: CBC WITH AUTO DIFF L AB: Hemoglobin A1c 3. O besity (BMI 35.0-39.9 without comorbidity) L AB: PROFILE, RANDOM (COMPREHENSIVE METABOLIC) L AB: CBC WITH AUTO DIFF L AB: Hemoglobin A1c * Procedure Codes: * Preventive Medicine: Counseling: [...] tobacco use and urged to quit. 1 09/19/2023 DM Care Plan: P atient Lifestyle Goals P atient wants to be able to manage diabetes without too much effort. T reatment Goals B lood Sugars less than < 115, HbA1C < 7.0. B arriers n o barriers. S elf-Managment Goals W ork on weight loss, with a goal of losing 1 lb per week. * Follow Up: S ix weeks (Reason: Check mobility and blood sugar levels) * Images: * Sign off status: Completed true * Provider: Lazara Berman MD Date: 09/19/2023 Generated for Duncani ken/Mushtaq/eTransmitting on: 09:57 AM EDT History and Physical Notes * HPI (History of Present Illness) Category Sub-Category Detail Notes COVID-19 Screening Questions Have you had any new onset fever, chills, cough, congestion, sore throat, shortness of breath, muscle aches?: No Examination Category Sub-Category Detail Notes General Examination GENERAL APPEARANCE: pleasant , well nourished, well developed, in no acute distress, calm and relaxed, obese, man, obese, man HEAD: atraumatic, normocep halic EYES: eomi, perrla, anicte shaniqua, conjugate EARS: normal NOSE: septum intact NECK/THYROID: no jugular venous di stention, no carotid bruit, thyroid normal HEART: no clicks, gallops, murmurs, or rubs, regular rhythm, S1, S2 normal, no s3, or vascular bruits LUNGS: clear to auscultatio n ABDOMEN: bowel sounds normal, no ascites, no organomegaly, no mass, centripital obesity, centripital obesity NEUROLOGIC: alert and oriented, cranial nerves 2-12 grossly intact, deep tendon reflexes 2+ symmetrical, motor strength normal upper and lower extremities, sensory exam intact SKIN: no suspicious lesion s, anicteric PERIPHERAL PULSES: normal BREASTS: no masses palpable b ilaterally MUSCULOSKELETAL: extremities unremark able, no clubbing, cyanosis or edema,Surgical incision over anterior right knee with no sign of infection, moderate swellingg LYMPH NODES: no enlarged lymph no rolando,spleen normal RECTAL EXAM: not examined PSYCH: alert, oriented, cog nitive function intact, thought process logical, goal directed ORAL CAVITY: normal, unremarkable
--- OUTSIDE RECORDS SUMMARY | 2024-09-17 10:01 | XMS_ITS ---
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 Richard Berman III Primary Care Provider [phone] REASON FOR VISIT Insurance Social History Sex Assigned At : Social History Observation Description Sex Assigned At Male Encounters Encounter Location Date Provider Diagnosis Richard Berman III, MD [address] [place] [address] [place] [address] 09/17/2024 Richard Berman Plan Of Treatment Next Appt Details Provider Name:Richard Berman , 05/27/2025 03:15:00 PM, [address] [place] [address] [place], [address], Provider Name:Richard Berman , 12/01/2025 03:30:00 PM, [address] [place] [address] [place], [address], Progress Notes * Hillary MANEB: 7 (69 yo M)Acc No.[id number]:09/17/2024 Patient: Alfonso JORDAN :1955 A ge:69 Y S ex:Male Address:[address] [place] [address] [address] , [address], [place] [address] * true * Date: Generated for Marco rogers/Mushtaq/eTransmitting on: 09:56 AM EDT
--- OUTSIDE RECORDS SUMMARY | 2024-11-27 11:45 | XMS_ITS ---
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 Rihcard Berman III Primary Care Provider Allergies Allergen (clinical drug ingredient) Drug/Non Drug Allergy documented on EMR Reaction Allergy Type Onset Date Status No Known Drug Allergy Unknown Drug Allergy Active No Known Food Allergy Unknown Drug Allergy Active REASON FOR VISIT Annual Exam Medications Medication SIG (Take, Route, Frequency, Duration) Notes Start Date End Date Status Gauze Pads 3 X3 as directed - use to test blood sugar once a day 02/06/2023 Active Alcohol Pads 70 % as directed - use to check blood sugar once a day 02/06/2023 Active metFORMIN HCl 1000 MG TAKE ONE TABLET BY MOUTH ONCE DAILY Active FreeStyle Lite w/Device as [...] ONE TABLET BY MOUTH ONCE DAILY Active Aspirin 81 MG 1 capsule Orally Onc e a day Active Social History Tobacco Use: Social History Observation Description Date Details (start date - stop date) Former Smoker NA - NA Sex Assigned At : Social History Observation Description Sex Assigned At Male Tobacco Control (Standard) Question Answer Notes Tobacco use: Former smoker How long has it been since you last smoked? Grea ter than 10 years Additional Findings: Tobacco non-user Ex-cigaret te smoker AUDIT-C (Standard) Question Answer Notes Did you have a drink containing alcohol in the p ast year? No Points 0 Interpretation Negative Vital Signs Temperature 98.0 degrees Fahrenheit 11/28/19 25 Blood pressure systolic 137 mm Hg 11/28/19 25 Blood pressure diastolic 87 mm Hg 025 Heart Rate 54 /min 11/27/2024 Height 68 in 11/27/2024 Weight 229 lbs 11/27/2024 BMI 34.82 kg/m2 11/27/2024 Encounters Encounter Location Date Provider Diagnosis Richard Berman III, MD [address] [place] [address] [place] [address] 11/27/2024 Richard Berman Type 2 diabetes freedom itus without complication, without long-term current use of insulin E11.9 ; Myocardial infarction, unspecified UT type, unspecified artery I21.9 ; Thrombocytopenia D69.6 ; Obesity (BMI 35.0-39.9 without comorbidity) E66.01 ; Hyperlipidemia E78.5 and Former smoker Z87.891 Assessments Encounter Date Diagnosis (ICD Code) Assessment Notes Treat ment Notes Treatment Clinical Notes 11/27/2024 Type 2 diabetes mellitus without complication, without long-term current use of insulin (ICD-10 - E11.9) We discussed wisdom of weight loss and managing adult-onset diabetes. We discussed the use of medications control diabetes and reduce weight. He does not wish to take an injectable medication. 11/27/2024 Myocardial infarctio n, unspecified UT type, unspecified artery (ICD-10 - I21.9) He has had no further chest pain. He has had no episodes of syncope or diarrhea. Pheresis and he has been compliant with all his medications. He is stable at this time. Back to work. 11/27/2024 Thrombocytopenia (ICD-10 - D69.6) His platelet count is slightly low at 133,000. He has had no bleeding. He has no bruises. This value will be observed carefully. 11/27/2024 Obesity (BMI 35.0-39 .9 without comorbidity) (ICD-10 - E66.01) We made a plan to lose weight at a rate of one half of a pound per week. His body mass index is now 34. 11/27/2024 Hyperlipidemia (ICD- 10 - E78.5) His lipids are currently stable and no change in her regimen was made today. 11/27/2024 Former smoker (ICD-1 0 - Z87.891) He is highly motivated not to smoke anymore. We have creative plan to prevent relapse in times of stress and illness. Plan Of Treatment Medication Medication Name Sig Start Date Stop Date Notes Gauze Pads 3 X3 as directed - use to test blood sugar once a day 02/06/2023 Alcohol Pads 70 % as directed - use to check blood sugar once a day 02/06/2023 metFORMIN HCl 1000 MG TAKE ONE TABLET BY MOUTH ONCE DAILY FreeStyle Lite w/Device as directed [...] ONE T ABLET BY MOUTH ONCE DAILY Aspirin 81 MG 1 capsule Orally Once a day Next Appt Details Follow Up: 3 Months, Reason: OV Provider Name:Richard Berman , 05/27/2025 03:15:00 PM, [address] [place] [address] DR, [place] [address], [place], [address], Provider Name:Richard Berman , 12/01/2025 03:30:00 PM, [address] [place] [address] [address] [place]IN[address], [place], [address], Progress Notes * Alfonso MANEDOB: 7 (69 yo M)Acc No.[id number]:11/27/2024 Progress Notes Patient: Alfonso JORDAN Provider: Lazara Berman MD :1955 A ge:69 Y S ex:Male Date:11/27/2024 [facility] [address] Subjective: * Chief Complaints: * A nnual Exam * HPI: D epression Screening: He returns to the office at the age of 69 for his annual physical examination. He is due for a colonoscopy and this was arranged. He is due for a diabetic ophthalmology exam and this was arranged. He feels generally healthy and well. His back is not painful today. He has been active. His appetite is good and he is sleeping well.His platelet count is 133,000. He has had no bleeding. His blood fasting glucose level today was 154. On July 02, 2024 he had a right knee replacement. It is still painful to walk and he finds this discouraging. His recovery has been steady but very slow. No difficulty in ambulation was seen today. PHQ-9 L ittle interest or pleasure in doing things?Several days F eeling down, depressed, or hopeless N ot at all T rouble falling or staying asleep, or sleeping too much M ore than half the days F eeling tired or having little energy M ore than half the days P oor appetite or overeating N ot at all F eeling bad about yourself or that you are a failure, or have let yourself or your family down N ot at all T rouble concentrating on things, such as reading the newspaper or watching television N ot at all M oving or speaking so slowly that other people could have noticed; or the opposite, being so fidgety or restless that you have been moving around a lot more than usual N ot at all T houghts that you would be better off or of hurting yourself in some way N ot at all T otal Score 5 I nterpretation M ild Depression C OVID-19 Screening: Questions H ave you had any new onset fever, chills, cough, congestion, sore throat, shortness of breath, muscle aches? N o F all Risk Screening: Fall History H ave you had any falls with injury in the past year? Y es H ave you had two or more falls in the past year? N o F all Risk Assessment: O ne fall with injury in the past year S KIM Questions: SDOH Questions I n the past year have you been worried about losing your housing? N o I n the past year have you or any family members you live with been unable to get any of the following when it was really needed? Check all that apply: N one * ROS: G eneral/Constitutional: pain r ight and left knee, Otherwise only normal aches and pains. C hills d enies. F atigue a dmits. F ever d enies. ? E NT: Decreased hearing s aw ent, no hearing aid. ? R espiratory: Cough d enies. C ardiovascular: [...] have been noted. G enitourinary: Frequent urination t wice a night. M usculoskeletal: Muscle aches d [...] history Hospitalization for right leg surgery at [facility] * Family History: F ather: 86 yrs, ulcers, hepatitis c through blood [...] Social History: T obacco Use: T obacco Control (Standard) T obacco use: F ormer smoker H ow long has it been since you last smoked??Greater than 10 years A dditional Findings: Tobacco non-user E x-cigarette smoker D rugs/Alcohol: D rugs H ave you used drugs other than those for medical reasons in the past 12 months? N o D rug/Alcohol: A GERRY-C (Standard) D id you have a drink containing alcohol in the past year? N o P oints 0 I nterpretation N egative H e is and has three children. He was born in [place]. 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 * Medications: T akingAspirin 81 MG Capsule 1 capsule Orally Once a day Metoprolol Succinate ER 25 MG Tablet Extended [...] to test blood sugar once a day metFORMIN HCl 1000 MG Tablet TAKE ONE TABLET BY MOUTH ONCE DAILY Taking Aspirin 81 MG Capsule 1 capsule Orally Once a day Taking Metoprolol Succinate ER 25 MG Tablet [...] test blood sugar once a day Taking metFORMIN HCl 1000 MG Tablet TAKE ONE TABLET BY MOUTH ONCE DAILY DiscontinuedAspirin Adult Low Dose Meclizine HCl 50 MG Tablet 1 tablet [...] Medication List reviewed and reconciled with the patientDiscontinued Aspirin Adult Low Dose Discontinued Meclizine HCl 50 MG Tablet 1 tablet as needed Orally every 6 hrs prn vertigo Discontinued Eliquis 2.5 MG Tablet TAKE 1 TABLET BY MOUTH 2 TIMES A DAY FOR 30 DAYS Oral Discontinued traMADol HCl 50 MG Tablet TAKE 1 TO 2 TABLETS BY MOUTH EVERY 6 HOURS NEEDED FOR MILD PAIN. *DO NOT EXCEED 8 TABLETS (400MG) PER DAY* Oral Discontinued oxyCODONE HCl 5 MG Tablet TAKE 1 TO 2 TABLETS BY MOUTH EVERY 4 HOURS NEEDED FOR SEVERE PAIN Oral Medication List reviewed and reconciled with the patient * Allergies: N o Known Drug AllergyNo Known Food Allergyno[Allergies Verified] Objective: * Vitals: H t: 68, Wt:229, BMI:34.82, BP:137/87, HR:54, Temp:98.0, Wt-k.87. * P ast Orders: Lab:Complete Blood Count Aut o Diff * Collection Date 11/27/2024 04/06/2024 12/02/2023 Collection Time 08:46 AM 09:21 AM 08:41 AM Order Date 11/27/2024 04/06/2024 12/02/2023 White Blood Count 6.6 (Ref Range: 4.8-10.8 X10*3/uL) 4.9 (Ref Range: 4.8-10.8 X10*3/uL) 5.9 (Ref Range: 4.8-10.8 X10*3/uL) Red Blood Count 5.19 (Ref Range: 4.60-5.80 X10*6/uL) 5.18 (Ref Range: 4.60-5.80 X10*6/uL) 5.23 (Ref Range: 4.60-5.80 X10*6/uL) Hemoglobin 14.6 (Ref Range: 14.0-18.0 g/dl) 14.8 (Ref Range: 14.0-18.0 g/dl) 15.2 (Ref Range: 14.0-18.0 g/dl) Hematocrit 44.6 (Ref Range: 42.0-52.0 %) 44.5 (Ref Range: 42.0-52.0 %) 45.3 (Ref Range: 42.0-52.0 %) Mean Corpuscular Volume 85.9 (Ref Range: 80.0-98.0 fL) 85.9 (Ref Range: 80.0-98.0 fL) 86.6 (Ref Range: 80.0-98.0 fL) Mean Corpuscular Hemoglobin 28.1 (Ref Range: 27.0-33.0 pg) 28.6 (Ref Range: 27.0-33.0 pg) 29.1 (Ref Range: 27.0-33.0 pg) Mean Corpuscular HGB Conc 32.7 (Ref Range: 31.0-36.0 g/dl) 33.3 (Ref Range: 31.0-36.0 g/dl) 33.6 (Ref Range: 31.0-36.0 g/dl) Red Cell Distribution Width 13.9 (Ref Range: 11.0-16.0 %) 13.6 (Ref Range: 11.0-16.0 %) 13.6 (Ref Range: 11.0-16.0 %) Platelet Count 133 L (Ref Range: 160-400 X10*3/uL) 127 L (Ref Range: 160-400 X10*3/uL) 128 L (Ref Range: 160-400 X10*3/uL) Mean Platelet Volume 11.9 (Ref Range: 9.4-12.4 fL) 11.9 (Ref Range: 9.4-12.4 fL) 11.4 (Ref Range: 9.4-12.4 fL) Neutrophils Percent Auto 61.3 (Ref Range: 45-73 %) 60.5 (Ref Range: 45-73 %) 54.1 (Ref Range: 45-73 %) Imm Gran Pct Auto 0.3 (Ref Range: 0.0-0.4 %) 0.2 (Ref Range: 0.0-0.4 %) 0.3 (Ref Range: 0.0-0.4 %) Lymphocytes Percent Auto 26.0 (Ref Range: 20-40 %) 27.6 (Ref Range: 20-40 %) 32.0 (Ref Range: 20-40 %) Monocytes Percent Auto 8.1 (Ref Range: 2-11 %) 7.8 (Ref Range: 2-11 %) 8.9 (Ref Range: 2-11 %) Eosinophils Percent Auto 3.8 (Ref Range: 0-4 %) 3.5 (Ref Range: 0-4 %) 3.8 (Ref Range: 0-4 %) Basophils Percent Auto 0.5 (Ref Range: 0-2 %) 0.4 (Ref Range: 0-2 %) 0.9 (Ref Range: 0-2 %) NRBC Pct Auto 0.0 (Ref Range: 0.0-0.2 /100WBC) 0.0 (Ref Range: 0.0-0.2 /100WBC) 0.0 (Ref Range: 0.0-0.2 /100WBC) Neutrophils Absolute Auto 4.0 (Ref Range: 2.0-8.3 x10*3/uL) 2.9 (Ref Range: 2.0-8.3 x10*3/uL) 3.2 (Ref Range: 2.0-8.3 x10*3/uL) Imm Gran Abs Auto 0.02 (Ref Range: 0.00-0.03 X10*3/uL) 0.01 (Ref Range: 0.00-0.03 X10*3/uL) 0.02 (Ref Range: 0.00-0.03 X10*3/uL) Lymphocytes Absolute Auto 1.7 (Ref Range: 1.2-4.9 X10*3/uL) 1.3 (Ref Range: 1.2-4.9 X10*3/uL) 1.9 (Ref Range: 1.2-4.9 X10*3/uL) Monocytes Absolute Auto 0.5 (Ref Range: 0.1-1.2 X10*3/uL) 0.4 (Ref Range: 0.1-1.2 X10*3/uL) 0.5 (Ref Range: 0.1-1.2 X10*3/uL) Eosinophils Absolute Auto 0.3 (Ref Range: 0.0-0.4 X10*3/uL) 0.2 (Ref Range: 0.0-0.4 X10*3/uL) 0.2 (Ref Range: 0.0-0.4 X10*3/uL) Basophils Absolute Auto 0.0 (Ref Range: 0.0-0.2 X10*3/uL) 0.0 (Ref Range: 0.0-0.2 X10*3/uL) 0.1 (Ref Range: 0.0-0.2 X10*3/uL) NRBC Abs Auto 0.000 (Ref Range: 0.0-0.012 X10*3/uL) 0.000 (Ref Range: 0.0-0.012 X10*3/uL) 0.000 (Ref Range: 0.0-0.012 X10*3/uL) * Lab:[facility]. Juliane l Fast * Collection Date 11/27/2024 04/06/2024 08/15/2023 Collection Time 08:46 AM 09:21 AM 08:48 AM Order Date 11/27/2024 04/06/2024 08/15/2023 Sodium 136 (Ref Range: 135-145 mmol/L) 136 (Ref Range: 135-145 mmol/L) 139 (Ref Range: 135-145 mmol/L) Bilirubin Total 1.1 H (Ref Range: 0.0-1.0 mg/dL) 1.0 (Ref Range: 0.0-1.0 mg/dL) 1.3 H (Ref Range: 0.0-1.0 mg/dL) Aspartate Amino Transferase 22 (Ref Range: 5-37 U/L) 18 (Ref Range: 5-37 U/L) 17 (Ref Range: 5-37 U/L) Alanine Aminotransferase 25 (Ref Range: 0-40 U/L) 20 (Ref Range: 0-40 U/L) 20 (Ref Range: 0-40 U/L) Total Protein 6.9 (Ref Range: 6.5-8.0 g/dL) 6.9 (Ref Range: 6.5-8.0 g/dL) 7.4 (Ref Range: 6.5-8.0 g/dL) Albumin Level 4.1 (Ref Range: 3.5-5.0 g/dL) 4.1 (Ref Range: 3.5-5.0 g/dL) 4.3 (Ref Range: 3.5-5.0 g/dL) Alkaline Phosphatase 91 (Ref Range: 39-117 U/L) 74 (Ref Range: 39-117 U/L) 84 (Ref Range: 39-117 U/L) Potassium 4.2 (Ref Range: 3.3-5.1 mmol/L) 4.2 (Ref Range: 3.3-5.1 mmol/L) 5.0 (Ref Range: 3.3-5.1 mmol/L) Chloride 103 (Ref Range: 96-108 mmol/L) 105 (Ref Range: 96-108 mmol/L) 104 (Ref Range: 96-108 mmol/L) Carbon Dioxide 25 (Ref Range: 22-29 mmol/L) 23 (Ref Range: 22-29 mmol/L) 27 (Ref Range: 22-29 mmol/L) Anion Gap 12 (Ref Range: 12-20) 12 (Ref Range: 12-20) 13 (Ref Range: 12-20) Blood Urea Nitrogen 25 H (Ref Range: 9-16 mg/dL) 18 H (Ref Range: 9-16 mg/dL) 20 H (Ref Range: 9-16 mg/dL) Creatinine 0.91 (Ref Range: 0.5-1.4 mg/dL) 1.08 (Ref Range: 0.5-1.4 mg/dL) 0.99 (Ref Range: 0.5-1.4 mg/dL) Estimated Glomerular Filt Rate > 60 > 60 > 60 Glucose Fasting 144 H (Ref Range: 60-99 mg/dL) 138 H (Ref Range: 60-99 mg/dL) 155 H (Ref Range: 60-99 mg/dL) Calcium 9.2 (Ref Range: 8.4-10.2 mg/dL) 9.3 (Ref Range: 8.4-10.2 mg/dL) 9.8 (Ref Range: 8.4-10.2 mg/dL) * Lab:Hemoglobin A1c * Collection Date 11/27/2024 04/06/2024 12/02/2023 Collection Time 08:46 AM 09:21 AM 08:41 AM Order Date 11/27/2024 04/06/2024 12/02/2023 Hemoglobin A1c % 8.0 H (Ref Range: <6.0 %) 7.6 H (Ref Range: <6.0 %) 7.7 H (Ref Range: <6.0 %) Estimated Average Glucose 183 (Ref Range: mg/dL) 171 (Ref Range: mg/dL) 174 (Ref Range: mg/dL) * Examination: G eneral Examination: GENERAL APPEARANCE: [...] no organomegaly, no mass, centripital obesity, Large umbilical hernia which is not incarcerated. RECTAL EXAM: n ot examined. MUSCULOSKELETAL: e xtremities unremarkable, no clubbing, cyanosis or edema. PERIPHERAL PULSES: n ormal. NEUROLOGIC: a lert and oriented, cranial nerves 2-12 grossly intact, deep tendon reflexes 2+ symmetrical, motor strength normal upper and lower extremities, sensory exam intact. PSYCH: a lert, oriented. Assessment: * Assessment: 1. T ype 2 diabetes mellitus without complication, without long-term current use of insulin - E11.9 (Primary) N otes :We discussed wisdom of weight loss and managing adult-onset diabetes. We discussed the use of medications control diabetes and reduce weight. He does not wish to take an injectable medication. 2 . M yocardial infarction, unspecified UT type, unspecified artery - I21.9? Notes :He has had no further chest pain. He has had no episodes of syncope or diarrhea. Pheresis and he has been compliant with all his medications. He is stable at this time. Back to work. 3 . T hrombocytopenia - D69.6 N otes :His platelet count is slightly low at 133,000. He has had no bleeding. He has no bruises. This value will be observed carefully. 4 . O besity (BMI 35.0-39.9 without comorbidity) - E66.01 N otes :We made a plan to lose weight at a rate of one half of a pound per week. His body mass index is now 34. 5 . H yperlipidemia - E78.5 N otes :His lipids are currently stable and no change in her regimen was made today. 6 . F ormer smoker - Z87.891 N otes :He is highly motivated not to smoke anymore. We have creative plan to prevent relapse in times of stress and illness. Plan: * Treatment: 2. T hrombocytopenia L AB: PROFILE, FASTING (COMPREHENSIVE METABOLIC) L AB: PSA, TOTAL L AB: CBC w DIFF L AB: Lipid Panel L AB: Microalbumin, Random L AB: Hemoglobin A1c 3. O besity (BMI 35.0-39.9 without comorbidity) L AB: PROFILE, FASTING (COMPREHENSIVE METABOLIC) L AB: PSA, TOTAL L AB: CBC w DIFF L AB: Lipid Panel L AB: Microalbumin, Random L AB: Hemoglobin A1c 4. H yperlipidemia L AB: PROFILE, FASTING (COMPREHENSIVE METABOLIC) L AB: PSA, TOTAL L AB: CBC w DIFF L AB: Lipid Panel L AB: Microalbumin, Random L AB: Hemoglobin A1c * Procedure Codes: [...] done: Medical or Other reason not done DM Care Plan: P atient Lifestyle Goals P atient wants to be able to manage diabetes without too much effort. T reatment Goals B lood Sugars less than < 115, HbA1C < 7.0. B arriers n o barriers. S elf-Managment Goals W ork on weight loss, with a goal of losing 1 lb per week. * Follow Up: 3 Months (Reason: OV) * Images: * Sign off status: Completed true * Provider: Lazara Berman MD Date: 0 11/27/2024 Generated for Marco rogers/Mushtaq/Pamela on: 09:57 AM EDT History and Physical Notes * HPI (History of Present Illness) Category Sub-Category Detail Notes Depression Screening PHQ-9 Little inte rest or pleasure in doing things: Several days Feeling down, depressed, or hopeless: No t at all Trouble falling or staying a sleep, or sleeping too much: More than half the days Feeling tired or having little energy: M ore than half the days Poor appetite or overeating: Not at all Feeling bad about yourself o r that you are a failure, or have let yourself or your family down: Not at all Trouble concentrating on thi ngs, such as reading the newspaper or watching television: Not at all Moving or speaking so slowly that other people could have noticed; or the opposite, being so fidgety or restless that you have been moving around a lot more than usual: Not at all Thoughts that you would be b lashaun off or of hurting yourself in some way: Not at all Total Score: 5 Interpretation: Mild Depression Fall Risk Screening Fall History Have you had any falls with injury in the past year?: Yes Have you had two or more falls in the st year?: No Fall Risk Assessment:: One fall with inj ury in the past year COVID-19 Screening Questions Have you had any new onset fever, chills, cough, congestion, sore throat, shortness of breath, muscle aches?: No SDOH Questions SDOH Questions In the past year have you been worried about losing your housing?: No In the past year have you or any family members you live with been unable to get any of the following when it was really needed? Check all that apply:: None Examination Category Sub-Category Detail Notes General Examination [...] no organomegaly, no mass, centripital obesity, Large umbilical hernia which is not incarcerated NEUROLOGIC: alert and oriented, cranial nerves 2-12 [...]
--- OUTSIDE RECORDS SUMMARY | 2025-02-26 11:30 | XMS_ITS ---
Author Organization Richard Berman III, MD Address [address] [place] [address] [place] [address] Care Team Providers Care Project Manager Retail Name Role Phone Dr. Richard Berman III Primary Care Provider Allergies Allergen (clinical drug ingredient) Drug/Non Drug Allergy documented on EMR Reaction Allergy Type Onset Date Status No Known Drug Allergy Unknown Drug Allergy Active No Known Food Allergy Unknown Drug Allergy Active REASON FOR VISIT Ureterolithiasis, Obesity, Low back pain, Thrombocytopenia, Coronary artery disease, Diabetes, Hearing loss, Benign prostatic hypertrophy, Hypertension, Menieres disease Medications Medication SIG (Take, Route, Frequency, Duration) Notes Start Date End Date Status FreeStyle Lite w/Device as directed - us [...] TABLET BY MOUTH ONCE DAILY Active FreeStyle Lancets - as directed - use to check blood sugar once a day 02/06/2023 Active Januvia 100 MG 1 tablet Orally Once a day for 30 days 02/26/2025 Active Bactrim DS 800-160 MG 1 tablet Orally tw ice a day for 10 days 02/26/2025 03/08/2025 Active FreeStyle Lite Test - as directed In Vit ro use to check blood sugar once a day 02/06/2023 Active Atorvastatin Calcium 80 MG take 1 tablet by mouth every day Orally Once a day Active Lisinopril 5 MG TAKE ONE TABLET BY M OUTH ONCE DAILY Active Aspirin 81 MG 1 capsule Orally Onc e a day Active Metoprolol Succinate ER 25 [...] Additional Findings: Tobacco non-user Ex-cigaret te smoker Vital Signs Blood pressure systolic 141 mm Hg 02/27/20 25 Blood pressure diastolic 86 mm Hg 025 Heart Rate 52 /min 02/26/2025 Height 68 in 02/26/2025 Weight 230 lbs 02/26/2025 BMI 34.97 kg/m2 02/26/2025 Encounters Encounter Location Date Provider Diagnosis Richard Berman III, MD [address] [place] [address] [address] [place], [place] [address] 02/26/2025 Richard Berman Type 2 diabetes freedom itus without complication, without long-term current use of insulin E11.9 ; Thrombocytopenia D69.6 ; Benign neoplasm of colon, unspecified part of colon D12.6 ; Umbilical hernia without obstruction and without gangrene K42.9 ; Former smoker Z87.891 ; Ureterolithiasis N20.1 ; Coronary artery disease involving [place] coronary artery of [place] heart without angina pectoris I25.10 and Obesity (BMI 35.0-39.9 without comorbidity) E66.01 Assessments Encounter Date Diagnosis (ICD Code) Assessment Notes Treat ment Notes Treatment Clinical Notes 02/26/2025 Type 2 diabetes mellitus without complication, without long-term current use of insulin (ICD-10 - E11.9) We discussed wisdom of weight loss and managing adult-onset diabetes. We discussed the use of medications control diabetes and reduce weight. He does not wish to take an injectable medication.His hemoglobin A1c is 8.1. I strongly recommended Trulicity or Ozempic or Mounjaro. He reluctantly agreed to cconsider them. The patient's decision today. 02/26/2025 Thrombocytopenia (ICD-10 - D69.6) His platelet count is slightly low at 133,000. He has had no bleeding. He has no bruises. This value will be observed carefully. 02/26/2025 Benign neoplasm of colon, unspecified part of colon (ICD-10 - D12.6) There is no sign of recurrent disease or new primary today. 02/26/2025 Umbilical hernia without obstruction and without gangrene (ICD-10 - K42.9) He has decided not to have the hernia repair at this time as it is minimally symptomatic. 02/26/2025 Former smoker (ICD-1 0 - Z87.891) He is highly motivated not to smoke anymore. We have creative plan to prevent relapse in times of stress and illness. 02/26/2025 Ureterolithiasis (ICD-10 - N20.1) He has had no renal colic since his last visit and denies any hematuria. 02/26/2025 Coronary artery dise ase involving [place] coronary artery of [place] heart without angina pectoris (ICD-10 - I25.10) He has had no exertional or at rest angina since his last visit. The current regimen was continued. He has up-to-date with cardiology. 02/26/2025 Obesity (BMI 35.0-39 .9 without comorbidity) (ICD-10 - E66.01) We made a plan to lose weight at a rate of one half of a pound per week. His body mass index is now 34. Plan Of Treatment Medication Medication Name Sig Start Date Stop Date Notes FreeStyle Lite w/Device as directed - us e to check blood sugar once a day 02/06/2023 Alcohol Pads 70 % as directed - use to check blood sugar once a day 02/06/2023 Gauze Pads 3 X3 as directed - use to test blood sugar once a day 02/06/2023 metFORMIN HCl 1000 MG TAKE ONE TABLET BY MOUTH ONCE DAILY FreeStyle Lancets - as directed - use to check blood sugar once a day 02/06/2023 Januvia 100 MG 1 tablet Orally Once a day for 30 days 02/26/2025 Bactrim DS 800-160 MG 1 tablet Orally tw ice a day for 10 days 02/26/2025 03/08/2025 FreeStyle Lite Test - as directed In Vit ro use to check blood sugar once a day 02/06/2023 Atorvastatin Calcium 80 MG take 1 tablet by mouth every day Orally Once a day Lisinopril 5 MG TAKE ONE TABLET BY M OUTH ONCE DAILY Aspirin 81 MG 1 capsule Orally Once a day Metoprolol Succinate ER 25 MG TAKE ONE T ABLET BY MOUTH ONCE DAILY Next Appt Details Follow Up: 10 days, Reason: OV Provider Name:Richard Berman , 05/27/2025 03:15:00 PM, [address] [place] [address] [address], [place], [phone], Provider Name:Richard Berman , 12/01/2025 03:30:00 PM, [address] [place] [address] [address], [place], [address], Progress Notes * Alfonso MANEDOB: (69 yo M)Acc No.[id number]:02/26/2025 Progress Notes Patient: Alfonso JORDAN Provider: Lazara Berman MD :1955 A ge:69 Y S ex:Male Date:02/26/2025 Address:[address] [place], [place] [address] , [address], [phone] Subjective: * Chief Complaints: * U reterolithiasisObesityLow back painThrombocytopeniaCoronary artery diseaseDiabetesHearing lossBenign prostatic hypertrophyHypertensionMenieres disease * HPI: C OVID-19 Screening: Chayito castellon returns to the office for a scheduled visit for medical management. He says over the last few days. His hearing has become muffled and that this occurred before a flareup of his many years disease. He has not had a flareup since June 2024. On examination, he is here today were unremarkable spell. Observation will continue. He had a right knee replaced July 02, 2024 and says he is very pleased with the result. He has had no kidney stones. He has had no exertional angina. He stopped taking his Trulicity sometime ago because of low blood sugars. His hemoglobin A1c is noww 8.1. I strongly recommended resuming the Trulicity.? He is going to think about it and let me know if he agrees. Questions H ave you had any new onset fever, chills, cough, congestion, sore throat, shortness of breath, muscle aches? N o * ROS: G eneral/Constitutional: pain C ongested ears. C hills d enies. F atigue?admits. F ever d enies. E NT: Decreased hearing m ild. R [...] history Hospitalization for right leg surgery at [facility] * Family History: F ather: 88 [...] dditional Findings: Tobacco non-user E x-cigarette smoker H e is and has three children. He was born in [place]. 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 * Medications: T akingAspirin 81 MG Capsule [...] TAKE ONE TABLET BY MOUTH ONCE DAILY Medication List reviewed and reconciled with the patientTaking Aspirin 81 MG Capsule 1 capsule Orally [...] TAKE ONE TABLET BY MOUTH ONCE DAILY Medication List reviewed and reconciled with the patient * Allergies: N o Known Drug AllergyNo Known Food Allergyno[Allergies Verified] Objective: * Vitals: H t: 68, Wt:230, BMI:34.97, BP:141/86, HR:52, Wt-k.33. * P ast Orders: Lab:Prostate Specific Antige n * Collection Date 02/26/2025 12/02/2023 08/30/2022 Collection Time 09:05 AM 08:41 AM 08:40 AM Order Date 02/26/2025 12/02/2023 08/30/2022 Prostate Specific Antigen 0.81 (Ref Range: <0.05-4.0 ng/mL) 0.82 (Ref Range: <0.05-4.0 ng/mL) 0.74 (Ref Range: <0.05-4.0 ng/mL) * Lab:Lipid Panel * Collection Date 02/26/2025 04/06/2024 12/02/2023 Collection Time 09:05 AM 09:21 AM 08:41 AM Order Date 02/26/2025 04/06/2024 12/02/2023 Triglycerides 109 (Ref Range: <150 mg/dL) 79 (Ref Range: <150 mg/dL) 97 (Ref Range: <150 mg/dL) Cholesterol 113 (Ref Range: <200 mg/dL) 122 (Ref Range: <200 mg/dL) 147 (Ref Range: <200 mg/dL) LDL Cholesterol Calculated 51 (Ref Range: <100 mg/dL) 63 (Ref Range: <100 mg/dL) 84 (Ref Range: <100 mg/dL) HDL Cholesterol 41 (Ref Range: >40 mg/dL) 44 (Ref Range: >40 mg/dL) 44 (Ref Range: >40 mg/dL) * Lab:Comprehensive [place]. Pane l Fast * Collection Date 02/26/2025 11/27/2024 04/06/2024 Collection Time 09:05 AM 08:46 AM 09:21 AM Order Date 02/26/2025 11/27/2024 04/06/2024 Sodium 137 (Ref Range: 135-145 mmol/L) 136 (Ref Range: 135-145 mmol/L) 136 (Ref Range: 135-145 mmol/L) Bilirubin Total 0.9 (Ref Range: 0.0-1.0 mg/dL) 1.1 H (Ref Range: 0.0-1.0 mg/dL) 1.0 (Ref Range: 0.0-1.0 mg/dL) Aspartate Amino Transferase 21 (Ref Range: 5-37 U/L) 22 (Ref Range: 5-37 U/L) 18 (Ref Range: 5-37 U/L) Alanine Aminotransferase 19 (Ref Range: 0-40 U/L) 25 (Ref Range: 0-40 U/L) 20 (Ref Range: 0-40 U/L) Total Protein 6.9 (Ref Range: 6.5-8.0 g/dL) 6.9 (Ref Range: 6.5-8.0 g/dL) 6.9 (Ref Range: 6.5-8.0 g/dL) Albumin Level 4.3 (Ref Range: 3.5-5.0 g/dL) 4.1 (Ref Range: 3.5-5.0 g/dL) 4.1 (Ref Range: 3.5-5.0 g/dL) Alkaline Phosphatase 79 (Ref Range: 39-117 U/L) 91 (Ref Range: 39-117 U/L) 74 (Ref Range: 39-117 U/L) Potassium 5.1 (Ref Range: 3.3-5.1 mmol/L) 4.2 (Ref Range: 3.3-5.1 mmol/L) 4.2 (Ref Range: 3.3-5.1 mmol/L) Chloride 104 (Ref Range: 96-108 mmol/L) 103 (Ref Range: 96-108 mmol/L) 105 (Ref Range: 96-108 mmol/L) Carbon Dioxide 27 (Ref Range: 22-29 mmol/L) 25 (Ref Range: 22-29 mmol/L) 23 (Ref Range: 22-29 mmol/L) Anion Gap 11 L (Ref Range: 12-20) 12 (Ref Range: 12-20) 12 (Ref Range: 12-20) Blood Urea Nitrogen 19 H (Ref Range: 9-16 mg/dL) 25 H (Ref Range: 9-16 mg/dL) 18 H (Ref Range: 9-16 mg/dL) Creatinine 1.11 (Ref Range: 0.5-1.4 mg/dL) 0.91 (Ref Range: 0.5-1.4 mg/dL) 1.08 (Ref Range: 0.5-1.4 mg/dL) Estimated Glomerular Filt Rate > 60 > 60 > 60 Glucose Fasting 149 H (Ref Range: 60-99 mg/dL) 144 H (Ref Range: 60-99 mg/dL) 138 H (Ref Range: 60-99 mg/dL) Calcium 9.0 (Ref Range: 8.4-10.2 mg/dL) 9.2 (Ref Range: 8.4-10.2 mg/dL) 9.3 (Ref Range: 8.4-10.2 mg/dL) * Lab:Complete Blood Count Aut o Diff * Collection Date 02/26/2025 11/27/2024 04/06/2024 Collection Time 09:05 AM 08:46 AM 09:21 AM Order Date 02/26/2025 11/27/2024 04/06/2024 White Blood Count 5.5 (Ref Range: 4.8-10.8 X10*3/uL) 6.6 (Ref Range: 4.8-10.8 X10*3/uL) 4.9 (Ref Range: 4.8-10.8 X10*3/uL) Red Blood Count 5.15 (Ref Range: 4.60-5.80 X10*6/uL) 5.19 (Ref Range: 4.60-5.80 X10*6/uL) 5.18 (Ref Range: 4.60-5.80 X10*6/uL) Hemoglobin 14.7 (Ref Range: 14.0-18.0 g/dl) 14.6 (Ref Range: 14.0-18.0 g/dl) 14.8 (Ref Range: 14.0-18.0 g/dl) Hematocrit 44.5 (Ref Range: 42.0-52.0 %) 44.6 (Ref Range: 42.0-52.0 %) 44.5 (Ref Range: 42.0-52.0 %) Mean Corpuscular Volume 86.4 (Ref Range: 80.0-98.0 fL) 85.9 (Ref Range: 80.0-98.0 fL) 85.9 (Ref Range: 80.0-98.0 fL) Mean Corpuscular Hemoglobin 28.5 (Ref Range: 27.0-33.0 pg) 28.1 (Ref Range: 27.0-33.0 pg) 28.6 (Ref Range: 27.0-33.0 pg) Mean Corpuscular HGB Conc 33.0 (Ref Range: 31.0-36.0 g/dl) 32.7 (Ref Range: 31.0-36.0 g/dl) 33.3 (Ref Range: 31.0-36.0 g/dl) Red Cell Distribution Width 13.3 (Ref Range: 11.0-16.0 %) 13.9 (Ref Range: 11.0-16.0 %) 13.6 (Ref Range: 11.0-16.0 %) Platelet Count 127 L (Ref Range: 160-400 X10*3/uL) 133 L (Ref Range: 160-400 X10*3/uL) 127 L (Ref Range: 160-400 X10*3/uL) Mean Platelet Volume 11.2 (Ref Range: 9.4-12.4 fL) 11.9 (Ref Range: 9.4-12.4 fL) 11.9 (Ref Range: 9.4-12.4 fL) Neutrophils Percent Auto 57.6 (Ref Range: 45-73 %) 61.3 (Ref Range: 45-73 %) 60.5 (Ref Range: 45-73 %) Imm Gran Pct Auto 0.4 (Ref Range: 0.0-0.4 %) 0.3 (Ref Range: 0.0-0.4 %) 0.2 (Ref Range: 0.0-0.4 %) Lymphocytes Percent Auto 30.4 (Ref Range: 20-40 %) 26.0 (Ref Range: 20-40 %) 27.6 (Ref Range: 20-40 %) Monocytes Percent Auto 8.2 (Ref Range: 2-11 %) 8.1 (Ref Range: 2-11 %) 7.8 (Ref Range: 2-11 %) Eosinophils Percent Auto 2.9 (Ref Range: 0-4 %) 3.8 (Ref Range: 0-4 %) 3.5 (Ref Range: 0-4 %) Basophils Percent Auto 0.5 (Ref Range: 0-2 %) 0.5 (Ref Range: 0-2 %) 0.4 (Ref Range: 0-2 %) NRBC Pct Auto 0.0 (Ref Range: 0.0-0.2 /100WBC) 0.0 (Ref Range: 0.0-0.2 /100WBC) 0.0 (Ref Range: 0.0-0.2 /100WBC) Neutrophils Absolute Auto 3.2 (Ref Range: 2.0-8.3 x10*3/uL) 4.0 (Ref Range: 2.0-8.3 x10*3/uL) 2.9 (Ref Range: 2.0-8.3 x10*3/uL) Imm Gran Abs Auto 0.02 (Ref Range: 0.00-0.03 X10*3/uL) 0.02 (Ref Range: 0.00-0.03 X10*3/uL) 0.01 (Ref Range: 0.00-0.03 X10*3/uL) Lymphocytes Absolute Auto 1.7 (Ref Range: 1.2-4.9 X10*3/uL) 1.7 (Ref Range: 1.2-4.9 X10*3/uL) 1.3 (Ref Range: 1.2-4.9 X10*3/uL) Monocytes Absolute Auto 0.5 (Ref Range: 0.1-1.2 X10*3/uL) 0.5 (Ref Range: 0.1-1.2 X10*3/uL) 0.4 (Ref Range: 0.1-1.2 X10*3/uL) Eosinophils Absolute Auto 0.2 (Ref Range: 0.0-0.4 X10*3/uL) 0.3 (Ref Range: 0.0-0.4 X10*3/uL) 0.2 (Ref Range: 0.0-0.4 X10*3/uL) Basophils Absolute Auto 0.0 (Ref Range: 0.0-0.2 X10*3/uL) 0.0 (Ref Range: 0.0-0.2 X10*3/uL) 0.0 (Ref Range: 0.0-0.2 X10*3/uL) NRBC Abs Auto 0.000 (Ref Range: 0.0-0.012 X10*3/uL) 0.000 (Ref Range: 0.0-0.012 X10*3/uL) 0.000 (Ref Range: 0.0-0.012 X10*3/uL) * Lab:Hemoglobin A1c * Collection Date 02/26/2025 11/27/2024 04/06/2024 Collection Time 09:05 AM 08:46 AM 09:21 AM Order Date 02/26/2025 11/27/2024 04/06/2024 Hemoglobin A1c % 8.1 H (Ref Range: <6.0 %) 8.0 H (Ref Range: <6.0 %) 7.6 H (Ref Range: <6.0 %) Estimated Average Glucose 186 (Ref Range: mg/dL) 183 (Ref Range: mg/dL) 171 (Ref Range: mg/dL) * Lab:Microalbumin, Random * Collection Date 02/26/2025 12/02/2023 08/15/2023 Collection Time 09:00 AM 08:41 AM 08:40 AM Order Date 02/26/2025 12/02/2023 08/15/2023 Creatinine Urine 133.93 (Ref Range: mg/dL) 102.93 (Ref Range: mg/dL) 125.23 (Ref Range: mg/dL) Microalbumin Urine 14.0 (Ref Range: mg/L) 11.0 (Ref Range: mg/L) 19.0 (Ref Range: mg/L) Microalbum Creatinine Ratio Ur 10.4 (Ref Range: <30 ug/mg cr) 10.6 (Ref Range: <30 ug/mg cr) 15.1 (Ref Range: <30 ug/mg cr) * Examination: G eneral Examination: GENERAL APPEARANCE: p leasant, well nourished, well developed, in no acute distress, calm and relaxed: obese: man. HEAD: a traumatic, normocephalic. EYES: e [...] sounds normal, no ascites, no organomegaly, no mass: centripital obesity, umbilical hernia. RECTAL EXAM: n ot examined. [...] does not wish to take an injectable medication.His hemoglobin A1c is 8.1. I strongly recommended Trulicity or Ozempic or Mounjaro. He reluctantly agreed to cconsider them. The patient's decision today. 2 . T hrombocytopenia - D69.6 N otes :His platelet count is slightly low at 133,000. He has had no bleeding. He has no bruises. This value will be observed carefully. 3 . B enign neoplasm of colon, unspecified part of colon - D12.6 ?Notes :There is no sign of recurrent disease or new primary today. 4 . U mbilical hernia without obstruction and without gangrene - K42.9 ? N otes :He has decided not to have the hernia repair at this time as it is minimally symptomatic. 5 . F ormer smoker - Z87.891 N otes :He is highly motivated not to smoke anymore. We have creative plan to prevent relapse in times of stress and illness. 6 . U reterolithiasis - N20.1 N otes :He has had no renal colic since his last visit and denies any hematuria. 7 . C oronary artery disease involving [place] coronary artery of [place] heart without angina pectoris - I25.10 N otes :He has had no exertional or at rest angina since his last visit. The current regimen was continued. He has up-to-date with cardiology. 8 . O besity (BMI 35.0-39.9 without comorbidity) - E66.01 N otes :We made a plan to lose weight at a rate of one half of a pound per week. His body mass index is now 34. Plan: * Treatment: * Procedure Codes: * [...] of tobacco use and urged to quit. 0 02/26/2025 DM Care Plan: P atient Lifestyle Goals P atient wants to be able to manage diabetes without too much effort. T reatment Goals H bA1C < 7.0, Blood Sugars less than < 115. B arriers n o barriers. S elf-Managment Goals W ork on weight loss, with a goal of losing 1 lb per week. * Follow Up: 1 0 days (Reason: OV) * Images: * Sign off status: Completed true * Provider: Lazara Berman MD Date: 0 02/26/2025 Generated for Marco rogers/Mushtaq/Radhaitting on: 1 09:56 AM EDT History and Physical Notes * HPI (History of Present Illness) Category Sub-Category Detail Notes COVID-19 Screening Questions Have you had any new onset fever, chills, cough, congestion, sore throat, shortness of breath, muscle aches?: No Examination Category Sub-Category Detail Notes General Examination GENERAL APPEARANCE: pleasant , well nourished, well developed, in no acute distress, calm and relaxed: obese: man HEAD: atraumatic, normocep halic EYES: eomi, perrla, anicte shaniqua, conjugate EARS: normal NOSE: septum intact NECK/THYROID: no jugular venous di stention, no carotid bruit, thyroid normal HEART: no clicks, gallops, murmurs, or rubs, regular rhythm, S1, S2 normal, no s3, or vascular bruits LUNGS: clear to auscultatio n ABDOMEN: bowel sounds normal, no ascites, no organomegaly, no mass: centripital obesity, umbilical hernia NEUROLOGIC: alert and oriented, cranial [...]
--- OUTSIDE RECORDS SUMMARY | 2025-03-07 05:13 | XMS_ITS ---
Author Organization Richard Berman III, MD Address [address] [place] [address] [place] [address] Care Team Providers Care Manager Gas Name Role Phone Dr. Richard Berman III Primary Care Provider REASON FOR VISIT Needs call back from Social History Sex Assigned At : Social History Observation Description Sex Assigned At Male Encounters Encounter Location Date Provider Diagnosis Richard Berman III, MD [address] [place] [address] [place] [address] 03/07/2025 Richard Berman Plan Of Treatment Next Appt Details Provider Name:Richard Berman , 05/27/2025 03:15:00 PM, [address] [place] [address] [place], [address], Provider Name:Richard Berman , 12/01/2025 03:30:00 PM, [address] [place] [address] [place], [address], Progress Notes * Alfonso MANEDOB: 7 (69 yo M)Acc No.[id number]:03/07/2025 Patient: Alfonso JORDAN :1955 A ge:69 Y S ex:Male [address], [place] [address] * true * Date: Generated for Marco rogers/Muhstaq/eTransmitting on: 1 09:57 AM EDT
--- OUTSIDE RECORDS SUMMARY | 2025-03-11 11:45 | XMS_ITS ---
Author Organization Richard Berman III, MD Address [address] [place] [address] [place] [address] Care Team Providers Care Seed Expert Name Role Phone Dr. Richard Berman III Primary Care Provider Allergies Allergen (clinical drug ingredient) Drug/Non Drug Allergy documented on EMR Reaction Allergy Type Onset Date Status No Known Drug Allergy Unknown Drug Allergy Active No Known Food Allergy Unknown Drug Allergy Active REASON FOR VISIT Otitis, Thrombocytopenia, Umbilical hernia, Obesity, Low back pain, Coronary artery disease, Diabetes benign prostatic hypertrophy Medications Medication SIG (Take, Route, Frequency, Duration) [...] MG 1 tablet Orally Once a day 02/26/2025 Active FreeStyle Lite Test - as directed In Vit ro use to check blood sugar once a day 02/06/2023 Active Lisinopril 5 MG TAKE ONE TABLET BY M OUTH ONCE DAILY Active FreeStyle Lancets - as directed - use to check blood sugar once a day 02/06/2023 Active Atorvastatin Calcium 80 MG take 1 tablet by mouth every day Orally Once a day Active Aspirin 81 MG 1 capsule Orally [...] has it been since you last smoked? Santy ter than 10 years Additional Findings: Tobacco non-user Ex-cigaret te smoker Vital Signs Temperature 98.1 degrees Fahrenheit 03/11/20 25 Blood pressure systolic 137 mm Hg 03/11/20 25 Blood pressure diastolic 83 mm Hg 025 Heart Rate 49 /min 03/11/2025 Height 68 in 03/11/2025 Weight 230 lbs 03/11/2025 BMI 34.97 kg/m2 03/11/2025 Encounters Encounter Location Date Provider Diagnosis Richard Berman III, MD [address] [place] [address] [place] [address] 03/11/2025 Richard Berman Type 2 diabetes freedom itus without complication, without long-term current use of insulin E11.9 ; Coronary artery disease involving klamath coronary artery of klamath heart without angina pectoris I25.10 ; Hyperlipidemia E78.5 ; Obesity (BMI 35.0-39.9 without comorbidity) E66.01 ; Former smoker Z87.891 ; Thrombocytopenia D69.6 ; ED (erectile dysfunction) of non-organic origin F52.21 ; Benign neoplasm of colon, unspecified part of colon D12.6 ; Umbilical hernia without obstruction and without gangrene K42.9 ; Myocardial infarction, unspecified WA type, unspecified artery I21.9 and Meniere's disease of both ears H81.03 Assessments Encounter Date Diagnosis (ICD Code) Assessment Notes Treat ment Notes Treatment Clinical Notes 03/11/2025 Type 2 diabetes mellitus without complication, without long-term current use of insulin (ICD-10 - E11.9) His hemoglobin A1c was 8. He was begun on Januvia. He reports an improvement in his fasting glucose levels. A hemoglobin A1c will be done in 90 days. He will aggressively tryy to lose weight and follow a diabetic diet. 03/11/2025 Coronary artery disease involving klamath coronary artery of klamath heart without angina pectoris (ICD-10 - I25.10) He has had no exertional or at rest angina since his last visit. The current regimen was continued. He has up-to-date with cardiology. 03/11/2025 Hyperlipidemia (ICD- 10 - E78.5) His lipids are currently well controlled and no change in his current regimen was necessary. 03/11/2025 Obesity (BMI 35.0-39 .9 without comorbidity) (ICD-10 - E66.01) We continue our efforts should counseling about weight loss. We have discussed weight loss medications. We have discussed diet and nutrition. 03/11/2025 Former smoker (ICD-1 0 - Z87.891) He is highly motivated not to smoke anymore. We have creative plan to prevent relapse in times of stress and illness. 03/11/2025 Thrombocytopenia (ICD-10 - D69.6) His platelet count is slightly low at 127,000. He has had no bleeding. He has no bruises. This value will be observed carefully. 03/11/2025 ED (erectile dysfunction) of non-organic origin (ICD-10 - F52.21) Medication has been prescribed for this problem which has responded to treatment. 03/11/2025 Benign neoplasm of colon, unspecified part of colon (ICD-10 - D12.6) There is no sign of recurrent disease or new primary today. 03/11/2025 Umbilical hernia without obstruction and without gangrene (ICD-10 - K42.9) He has decided not to have the hernia repair at this time as it is minimally symptomatic. 03/11/2025 Myocardial infarctio n, unspecified WA type, unspecified artery (ICD-10 - I21.9) He has had no further chest pain. He has had no episodes of syncope or diarrhea. Pheresis and he has been compliant with all his medications. He is stable at this time. Back to work. 03/11/2025 Meniere's disease of both ears (ICD-10 - H81.03) The otitis has resolved. He still has occasional vertigo when remains under the care of ENT. Plan Of Treatment Medication Medication Name Sig [...] MG 1 tablet Orally Once a day 02/26/2025 FreeStyle Lite Test - as directed In Vit ro use to check blood sugar once a day 02/06/2023 Lisinopril 5 MG TAKE ONE TABLET BY M OUTH ONCE DAILY FreeStyle Lancets - as directed - use to check blood sugar once a day 02/06/2023 Atorvastatin Calcium 80 MG take 1 tablet by mouth every day Orally Once a day Aspirin 81 MG 1 capsule Orally Once a day Metoprolol Succinate ER 25 MG TAKE ONE T ABLET BY MOUTH ONCE DAILY Pending Test Test Name Order Date PROFILE, FASTING (COMPREHENSIVE METABOLI C) 03/11/2025 CBC w DIFF 03/11/2025 Lipid Panel 03/11/2025 Hemoglobin A1c 03/11/2025 Next Appt Details Follow Up: 2 Months, Reason: OV Provider Name:Richard Berman , 05/27/2025 03:15:00 PM, [address] [place] [address] [address], [place], [address], Provider Name:Richard Berman , 12/01/2025 03:30:00 PM, [address] [place] [address] [address], [place], [address], Progress Notes * Hunter MANE: 7 (69 yo M)Acc No.[id number]:03/11/2025 Progress Notes Patient: Alona SYEDAAlfonso Provider: Lazara Berman MD :1955 A ge:69 Y S ex:Male Date:03/11/2025 Address:[address] , [address], [place], [place]-[id number] Subjective: * Chief Complaints: * O titisThrombocytopeniaUmbilical herniaObesityLow back painCoronary artery diseaseDiabetes benign prostatic hypertrophy * HPI: C OVID-19 Screening: A fter the antibiotics his ear feels better than it has in the last year and his hearing is improved. He has a sensation of fluid draining into the throat from his right ear. His examination today showed normal tissues. He has had no side effects from the Januvia His blood glucose level is much easier to control on the chart events. He states that it is a very effective medication. Questions H ave you had any new onset fever, chills, cough, congestion, sore throat, shortness of breath, muscle aches? N o * ROS: G eneral/Constitutional: pain r ight ear now pain-free. C hills d enies.?Fatigue a dmits. F ever d enies. E NT: Decreased hearing b ack to normal. R espiratory: Cough d enies. C ardiovascular: [...] history Hospitalization for right leg surgery at [facility] * Family History: F ather: 88 yrs, [...] has three children. He was born in [place]. 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 * Medications: T akingAspirin 81 MG Capsule 1 capsule Orally Once a day Atorvastatin Calcium 80 MG Tablet take 1 [...] TAKE ONE TABLET BY MOUTH ONCE DAILY Januvia 100 MG Tablet 1 tablet Orally Once a day Metoprolol Succinate ER 25 MG Tablet Extended Release 24 Hour TAKE ONE TABLET BY MOUTH ONCE DAILY Medication List reviewed and reconciled with the patientTaking Aspirin 81 MG Capsule 1 capsule Orally Once a day Taking Atorvastatin Calcium 80 MG Tablet take [...] ONE TABLET BY MOUTH ONCE DAILY Taking Januvia 100 MG Tablet 1 tablet Orally Once a day Taking Metoprolol Succinate ER 25 MG Tablet Extended Release 24 Hour TAKE ONE TABLET BY MOUTH ONCE DAILY Medication List reviewed and reconciled with the patient * Allergies: N o Known Drug AllergyNo Known Food Allergyno[Allergies Verified] Objective: * Vitals: H t: 68, Wt:230, BMI:34.97, BP:137/83, HR:49, Temp:98.1, Wt-k.33. * P ast Orders: Lab:Hemoglobin A1c * Collection Date 02/26/2025 11/27/2024 [...] 15.1 (Ref Range: <30 ug/mg cr) * Lab:Complete Blood Count Aut o Diff [...] 0.000 (Ref Range: 0.0-0.012 X10*3/uL) * Lab:[facility] * Collection Date 02/26/2025 11/27/2024 04/06/2024 Collection [...] mg/dL) 9.3 (Ref Range: 8.4-10.2 mg/dL) * Lab:Lipid Panel * Collection Date 02/26/2025 [...] mg/dL) 44 (Ref Range: >40 mg/dL) * Lab:Prostate Specific Antige n * Collection Date 02/26/2025 12/02/2023 08/30/2022 Collection Time 09:05 AM 08:41 AM 08:40 AM Order Date 02/26/2025 12/02/2023 08/30/2022 Prostate Specific Antigen 0.81 (Ref Range: <0.05-4.0 ng/mL) 0.82 (Ref Range: <0.05-4.0 ng/mL) 0.74 (Ref Range: <0.05-4.0 ng/mL) * Examination: G eneral Examination: GENERAL APPEARANCE: [...] ascites, no organomegaly, no mass: centripital obesity, Moderate size stable pain-free umbilical hernia. RECTAL EXAM: n ot examined. MUSCULOSKELETAL: e xtremities unremarkable, no clubbing, cyanosis or edema. PERIPHERAL PULSES: n ormal. NEUROLOGIC: a lert and oriented, cranial nerves 2-12 grossly intact, deep tendon reflexes 2+ symmetrical, motor strength normal upper and lower extremities, sensory exam intact. PSYCH: a lert, oriented. Assessment: * Assessment: 1. C oronary artery disease involving klamath coronary artery of klamath heart without angina pectoris - I25.10 (Primary) N otes :He has had no exertional or at rest angina since his last visit. The current regimen was continued. He has up-to-date with cardiology. 2 . T ype 2 diabetes mellitus without complication, without long-term current use of insulin - E11.9 N otes :His hemoglobin A1c was 8. He was begun on Januvia. He reports an improvement in his fasting glucose levels. A hemoglobin A1c will be done in 90 days. He will aggressively tryy to lose weight and follow a diabetic diet. 3 . H yperlipidemia - E78.5 N otes :His lipids are currently well controlled and no change in his current regimen was necessary. 4 . O besity (BMI 35.0-39.9 without comorbidity) - E66.01 N otes :We continue our efforts should counseling about weight loss. We have discussed weight loss medications. We have discussed diet and nutrition. 5 . F ormer smoker - Z87.891 N otes :He is highly motivated not to smoke anymore. We have creative plan to prevent relapse in times of stress and illness. 6 . T hrombocytopenia - D69.6 N otes :His platelet count is slightly low at 127,000. He has had no bleeding. He has no bruises. This value will be observed carefully. 7 . E D (erectile dysfunction) of non-organic origin - F52.21 N otes :Medication has been prescribed for this problem which has responded to treatment. 8 . B enign neoplasm of colon, unspecified part of colon - D12.6 ?Notes :There is no sign of recurrent disease or new primary today. 9 . U mbilical hernia without obstruction and without gangrene - K42.9 ? N otes :He has decided not to have the hernia repair at this time as it is minimally symptomatic. 1 0. M yocardial infarction, unspecified WA type, unspecified artery - I21.9? Notes :He has had no further chest pain. He has had no episodes of syncope or diarrhea. Pheresis and he has been compliant with all his medications. He is stable at this time. Back to work. 1 1. M eniere's disease of both ears - H81.03 N otes :The otitis has resolved. He still has occasional vertigo when remains under the care of ENT. Plan: * Treatment: 2. H yperlipidemia L AB: PROFILE, FASTING (COMPREHENSIVE METABOLIC) L AB: CBC w DIFF L AB: Lipid Panel L AB: Hemoglobin A1c 3. O besity (BMI 35.0-39.9 without comorbidity) L AB: PROFILE, FASTING (COMPREHENSIVE METABOLIC) L AB: CBC w DIFF L AB: Lipid Panel L AB: Hemoglobin A1c * Procedure Codes: [...] tobacco use and urged to quit. 0 03/11/2025 DM Care Plan: P atient Lifestyle Goals P atient wants to be able to manage diabetes without too much effort. T reatment Goals B lood Sugars less than < 115, HbA1C < 7.0. B arriers n o barriers. S elf-Managment Goals W ork on weight loss, with a goal of losing 1 lb per week, Take blood sugars twice daily and keep a log. Bring log in to next appointment, Increase exercise to 3 times a week for 30 mins. * Follow Up: 2 Months (Reason: OV) * Images: * Sign off status: Completed true * Provider: Lazara Berman MD Date: 0 03/11/2025 Generated for Marco rogers/Mushtaq/eTransmitting on: 1 09:57 AM EDT History and Physical Notes [...] ascites, no organomegaly, no mass: centripital obesity, Moderate size stable pain-free umbilical hernia NEUROLOGIC: alert and oriented, cranial [...]
--- OUTSIDE RECORDS SUMMARY | 2025-05-24 09:56 | XMS_ITS | Clinical Summary ---
Author Organization [facility] Address [address] [facility] [address] [place] [address] Phone Care Team Providers Care On Awake Counselor Name Role Phone Richard Berman MD Primary Care Provider [phone] Allergies No known active allergies Medications lisinopril [...] Devices Not on file Insurance O [address] O O O Care Teams On Awake Counselor Relationship Specialty Start Date End Date Richard Berman MD [address] [place] [address] [place] [address] PCP - General Medical Oncology 05/10/19 Additional Source Comments The information contained in this document represents components of the legal health record. It is not the complete legal health record.[facility]
--- OUTSIDE RECORDS SUMMARY | 2025-05-24 09:56 | XMS_ITS | Patient Health Record ---
Author Organization [facility] Address [address] [place] [address] Care Team Providers Care Legal Coordinator Name Role Phone Richard Berman MD Primary Care Provider UnavailRichard Corona Unavailable [phone] Allergies No Known Allergies Reason For Referral No Information Medications Medication SIG (Take, Route, Frequency, Duration) Notes Start Date End Date Status Aspir-Low 81 MG 1 tablet Orally Once a day; Duration: 30 day(s) Active Metoprolol Succinate ER 25 MG Oral; Duration: 90 Active metFORMIN HCl 1000 MG Oral; Duration: 90 Active Atorvastatin Calcium 80 MG Oral; Duration: 90 Active Lisinopril 5 MG Oral; Duration: 90 Active Immunizations Vaccine Route Administration Date Status Comme [...] Status Risk Notes Problem Colon cancer screening (884267388) Colon cancer screening (Z12.11) Active confirmed Problem Change in bowel habit (48360572) Change in bowel habits (R19.4) Active confirmed Problem History of polyp of colon (situation) (076595168) History of colon polyps (Z86.010) Active confirmed Problem Gastroesophageal reflux disease (243852842) GERD (gastroesopha geal reflux disease) (K21.9) Active confirmed Plan Of Treatment Future Test Test Name Order Date UPPER GI ENDOSCOPY 01/16/2024 COLONOSCOPY 01/16/2024 Insurance Providers Payer Name Payer Address Payer Phone Subscriber Number Group Number Insured Name Patient Relationship to Insured Coverage Start Date Coverage End Date [facility] [address] [place] [phone] [id number] DARCY ALEX Self - patient is the insured Medical (General) History Medical History History ICD Code NIDDM CAD-IL 2018 with 1 stent GERD Denies CVA,Lung [...]
--- OUTSIDE RECORDS SUMMARY | 2025-05-24 09:57 | XMS_ITS | Data Portability ---
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 073312516 Active 2017 Other hemorrhagi c disorder due to intrinsic circulatin g anticoagul ants, antibodies , or inhibitors ; Note: Date Diagnosed: 04/27/2018 11:47 AM (D68.318) Not Available [facility] 4 02:18:33 Sensorine ural hearing loss of bilateral ears 060378545 Active 2024 CHAY VINCENT, AUD [address] [facility],[place] [address], [place], [address] , [facility] - [facility] 5 15:50:03 Periphera l vertigo 69959865 Active 2024 Charlotte delgado [place] - [facility] [place] 5 16:41:37 Problem Notes None recorded. Procedures Surgical History Date Name Laterality Status Provider Name and Address Organization Details Recorded Time 09/16/2024 Comp Audio with Tymps - 77961 & 18352 completed CHAY VINCENT, [facility] [address] [facility],[place] [address], [place], [address], [facility] - [facility] 09/16/2024 15:49:55 Imaging Results None recorded. Procedure Notes None recorded. Medical Equipment None Reported. Medications Name Sig Start Date Stop Date Status Note LastModified by Organization Details LastModified Time amoxicilli n 500 mg capsule active Not Available Not Available Not Available atorvastat in 80 mg tablet active Not Available Not Available Not Available Colt Low Dose Aspirin 81 mg tablet,del ayed release 2017 active Medication ID: [id number] Dur ation Value: 30 Brand Name: Aspirin Low Dose Send Method: E-Prescrib ed Subs Allowed: subs OK Special Instructio n: TAKE 1 TABLET BY MOUTH EVERY DAY Medica tionGeneri cName: Aspirin Low Dose Not Available Not Available Not Available clopidogre l 75 mg tablet 2017 active Medication ID: [id number] Dur ation Value: 30 Brand Name: clopidogre l Send Method: E-Prescrib ed Subs Allowed: subs OK Special Instructio n: take 1 tablet by mouth once daily STOP BRILINTA, TAKE 4 TABLETS O... (REFER TO PRESCRIPTI ON NOTES). Me dicationGe nericName: clopidogre l Not Available Not Available Not Available tramadol 50 mg tablet TAKE 1 TO 2 TABLETS BY MOUTH EVERY 6 HOURS NEEDED FOR MILD PAIN. *DO NOT EXCEED 8 TABLETS (400MG) PER DAY* active Not Available Not Available No t Available warfarin 6 mg tablet 2017 active Medication ID: [id number] Dur ation Value: 15 Brand Name: warfarin S end Method: E-Prescrib ed Subs Allowed: subs OK Special Instructio n: TAKE 1 TABLET BY MOUTH EVERY DAY FOR 15 DAYS Medic ationGener icName: warfarin Not Available Not Available Not Available meclizine 25 mg tablet active Not Available Not Available Not Available cephalexin 500 mg capsule 2017 active Medication ID: [id number] Dur ation Value: 1 Brand Name: cephalexin [...] % topical cream 2017 active Medication ID: [id number] Dur ation Value: 30 Brand Name: ketoconazo [...] 90 mg tablet 2017 active Medication ID: [id number] Dur ation Value: 30 Brand Name: Brilinta [...] Diagnosis SNOMED-CT Code Diagnosis ICD10 Code Diagnosis IMO Codes Diagnosis Note [id number] CHARLOTTE COOK PA-C [facility] [address] [address] 09/16/2024 15:33:01 09/16/2024 16:35:10 Sensorineural hearing loss of bilateral ears 840993098 H90.3 Right Ear:Normal hearing through 2K Hz sloping to a moderate SNHL with excellent speech discrimina tion.Type A tympanogra m.Left Ear:Normal hearing through 3K Hz sloping to a mild SNHL with excellent speech discrimina tion.Type A tympanogra m. Peripheral vertigo 04242 001 H81.399 Health Concerns Section Related Observation LastModified by Organization Detai ls LastModified Time None Recorded Concern Status LastModified by Organization Details LastModified Time None Recorded Advance Directives Directive None Recorded Payers Insurance Date Sequence Insurance Name Policy Number Policy Rojas Covered Member ID Rojas Member ID Guarantor Name 09/16/2024 2 [facility] ([facility] [id number] Alfonso Mane [id number] Alfonso Mane 09/16/2024 1 [facility] [id number] Alfonso Mane [id number] Alfonso Mane 11/25/2024 1 [facility] ([facility] Alfonso Mane [id number] Alfonso Mane 09/16/2024 2 [place] [employer] Alfonso Mane [id number] Alfonso Mane 11/25/2024 2 [place] [employer] Alfonso Mane [id number] Alfonso Mane Notes Date Note Type Note Provider Name and Address Organization Details Recorded Time 09/16/2024 text/html ROS as noted in the HPI 69 year old male presents for evaluation [...] as a teen, patient unsure what happened. Charlotte delgado [place] - [facility] 09/16/2024 16:42:01
--- OUTSIDE RECORDS SUMMARY | 2025-05-24 09:58 | XMS_ITS | Continuity of Care Document ---
Author Organization [facility] [address] [facility] [address] [place] [address] Phone [phone] Care Team Providers Care Grouter Helper Name Role Phone Richard Berman M.D. Care Team Information Receive r [phone] Problems Active Problems Provider Date Diabetes mellitus [...] Medications SIG Qnty Indications Ordering Provider Date [id number] Tablets Take 1 Tablet By Mouth Daily Dante Grullon MD Metoprolol Succinate ER25mg Tablets ER 24HR Take 1 Tablet By Mouth Every Day Richard Berman M.D. Atorvastatin Anulwdl04oc Tablets Take 1 Tablet By Mouth Every [...] unspecified complications I25.10 Athscl heart disease of klamath coronary artery w/o ang pctrs K21.00 Gastro-esophageal re flux dis with esophagitis, without bleed Assessments Date Code Description Provider 06/13/2022 E11.8 Type 2 diabetes mellitus with unspecified complications Sam Madsen M.D. 06/13/2022 I25.10 Atherosclerotic heart disease of klamath coronary artery without angina pectoris Sam Madsen M.D. 06/13/2022 K21.00 Gastro-esophagea l reflux disease with esophagitis, without bleeding Sam Madsen M.D. Plan of Treatment No Information Available Functional Status Description No Information Available Mental Status Description No Information Available Referrals Refer to Reason for Referral Status Appt Lorne e Sam Madsen M.D. Created [address] [place] [address] Drive [address] [place] [address] [phone] Sam Madsen M.D. Created [address] [place] [address] [address] [place] [id number] [phone]
--- OUTSIDE RECORDS SUMMARY | 2025-05-24 09:58 | XMS_ITS | Patient Health Record ---
Author Organization Richard Berman III, MD Address [address] [place] [address] [place] [address] Care Team Providers Care Manager Operational Name Role Phone Dr. Richard Berman III Primary Care Provider Allergies Allergen (clinical drug ingredient) Drug/Non Drug Allergy documented on EMR Reaction Allergy Type Onset Date Status No Known Drug Allergy Unknown Drug Allergy Active No Known Food Allergy Unknown Drug Allergy Active Results Component Value Reference Range Notes Complete Blood Count Auto Di ff Reviewed date:11/27/2024 03:54:41 PM Interpretation: Performing Lab:[facility], [address] [place] [phone] Notes/Report: White Blood Count 6.6 4.8-10.8 X10*3/uL Red Blood Count 5.19 4.60-5.80 X10*6/uL Hemoglobin 14.6 14.0-18.0 g/dl Hematocrit 44.6 42.0-52.0 % Mean Corpuscular Volume 85.9 80.0-98.0 fL Mean Corpuscular Hemoglobin 28.1 27.0-33.0 pg Mean Corpuscular HGB Conc 32.7 31.0-36.0 g/dl Red Cell Distribution Width 13.9 11.0-16.0 % Platelet Count 133 160-400 X10*3/uL Mean Platelet Volume 11.9 9.4-12.4 fL Neutrophils Percent Auto 61.3 45-73 % Imm Gran Pct Auto 0.3 0.0-0.4 % Lymphocytes Percent Auto 26.0 20-40 % Monocytes Percent Auto 8.1 2-11 % Eosinophils Percent Auto 3.8 0-4 % Basophils Percent Auto 0.5 0-2 % NRBC Pct Auto 0.0 0.0-0.2 /100WBC Neutrophils Absolute Auto 4.0 2.0-8.3 x10*3/u L Imm Gran Abs Auto 0.02 0.00-0.03 X10*3/uL Lymphocytes Absolute Auto 1.7 1.2-4.9 X10*3/u L Monocytes Absolute Auto 0.5 0.1-1.2 X10*3/uL Eosinophils Absolute Auto 0.3 0.0-0.4 X10*3/u L Basophils Absolute Auto 0.0 0.0-0.2 X10*3/uL NRBC Abs Auto 0.000 0.0-0.012 X10*3/uL Comprehensive [place]. Panel Fa st Reviewed date:11/27/2024 03:54:41 PM Interpretation: Performing Lab:[facility], [address] [place] [phone] Notes/Report: Sodium 136 135-145 mmol/L Potassium 4.2 3.3-5.1 mmol/L Chloride 103 96-108 mmol/L Carbon Dioxide 25 22-29 mmol/L Anion Gap 12 12-20 Blood Urea Nitrogen 25 9-16 mg/dL Creatinine 0.91 0.5-1.4 mg/dL Estimated Glomerular Filt Rate > 60 Chronic Kidney Disease: Estimated GFR < 60 mL/min/1.73m2 Severe Kidney Disease: Estimated GFR < 15 mL/min/1.73m2 Glucose Fasting 144 60-99 mg/dL A fasting glucose of 126 mg/dl or greater on more than one occasion is considered diagnostic of diabetes. Calcium 9.2 8.4-10.2 mg/dL Bilirubin Total 1.1 0.0-1.0 mg/dL Aspartate Amino Transferase 22 5-37 U/L Alanine Aminotransferase 25 0-40 U/L Total Protein 6.9 6.5-8.0 g/dL Albumin Level 4.1 3.5-5.0 g/dL Alkaline Phosphatase 91 39-117 U/L Hemoglobin A1c Reviewed date:11/27/2024 03:54:41 PM Interpretation: Performing Lab:[facility], [address] [place] [phone] Notes/Report: Hemoglobin A1c % 8.0 <6.0 % Hemoglobin A1C Reference Range Adults: 4.8 - 6.0 % Non diabetic: < 6.0 % Goal: < 7.0 % Additional Action Suggested: > 8.0 % Note: Hemoglobin A1c results are invalid for patients with abnormal amounts of HbF. Blood transfusions may impact the HbA1c concentration in the patient sample. Estimated Average Glucose 183 eAG = Estimated average glucose which is %A1C expressed as average glucose, using the formula of the [id number]-Wqzolxw Average Glucose study (ADAG), Diabetes Care, Vol.31,#8, Feb. 2007 Complete Blood Count Auto Di ff Reviewed date:02/28/2025 12:55:04 PM Interpretation: Performing Lab:[facility], [address] [place] [phone] Notes/Report: White Blood Count 5.5 4.8-10.8 X10*3/uL Red Blood Count 5.15 4.60-5.80 X10*6/uL Hemoglobin 14.7 14.0-18.0 g/dl Hematocrit 44.5 42.0-52.0 % Mean Corpuscular Volume 86.4 80.0-98.0 fL Mean Corpuscular Hemoglobin 28.5 27.0-33.0 pg Mean Corpuscular HGB Conc 33.0 31.0-36.0 g/dl Red Cell Distribution Width 13.3 11.0-16.0 % Platelet Count 127 160-400 X10*3/uL Mean Platelet Volume 11.2 9.4-12.4 fL Neutrophils Percent Auto 57.6 45-73 % Imm Gran Pct Auto 0.4 0.0-0.4 % Lymphocytes Percent Auto 30.4 20-40 % Monocytes Percent Auto 8.2 2-11 % Eosinophils Percent Auto 2.9 0-4 % Basophils Percent Auto 0.5 0-2 % NRBC Pct Auto 0.0 0.0-0.2 /100WBC Neutrophils Absolute Auto 3.2 2.0-8.3 x10*3/u L Imm Gran Abs Auto 0.02 0.00-0.03 X10*3/uL Lymphocytes Absolute Auto 1.7 1.2-4.9 X10*3/u L Monocytes Absolute Auto 0.5 0.1-1.2 X10*3/uL Eosinophils Absolute Auto 0.2 0.0-0.4 X10*3/u L Basophils Absolute Auto 0.0 0.0-0.2 X10*3/uL NRBC Abs Auto 0.000 0.0-0.012 X10*3/uL Comprehensive [place]. Panel Fa st Reviewed date:02/28/2025 12:55:04 PM Interpretation: Performing Lab:[facility], [address] [place] [phone] Notes/Report: Sodium 137 135-145 mmol/L Potassium 5.1 3.3-5.1 mmol/L Chloride 104 96-108 mmol/L Carbon Dioxide 27 22-29 mmol/L Anion Gap 11 12-20 Blood Urea Nitrogen 19 9-16 mg/dL Creatinine 1.11 0.5-1.4 mg/dL Estimated Glomerular Filt Rate > 60 Chronic Kidney Disease: Estimated GFR < 60 mL/min/1.73m2 Severe Kidney Disease: Estimated GFR < 15 mL/min/1.73m2 Glucose Fasting 149 60-99 mg/dL A fasting glucose of 126 mg/dl or greater on more than one occasion is considered diagnostic of diabetes. Calcium 9.0 8.4-10.2 mg/dL Bilirubin Total 0.9 0.0-1.0 mg/dL Aspartate Amino Transferase 21 5-37 U/L Alanine Aminotransferase 19 0-40 U/L Total Protein 6.9 6.5-8.0 g/dL Albumin Level 4.3 3.5-5.0 g/dL Alkaline Phosphatase 79 39-117 U/L Lipid Panel Reviewed date:02/28/2025 12:55:04 PM Interpretation: Performing Lab:[facility], [address] [place] [phone] Notes/Report: Triglycerides 109 <150 mg/dL Desirable Triglyceride: less than 150 mg/dL Borderline High Triglyceride 150-199 mg/dL High Triglyceride: 200-499 mg/dL Very High Triglyceride: greater than or equal to 5OO mg/dL Cholesterol 113 <200 mg/dL Desirable Cholesterol: less than 200 mg/dL Borderline High Cholesterol: 200-239 mg/dL High Cholesterol: greater than 239 mg/dL LDL Cholesterol Calculated 51 <100 mg/dL Desirable LDL: less than 100 mg/dL Near Optimal/Above Optimal LDL: 110-129 mg/dL Borderline High LDL: 130-159 mg/dL High LDL: 160-189 mg/dL Very High LDL: greater than or equal to 190 mg/dL HDL Cholesterol 41 >40 mg/dL Desirable HDL: greater than 40 mg/dL Note: This HDL assay may give artificially low results in patients with liver disease. Prostate Specific Antigen Reviewed date:02/28/2025 12:55:04 PM Interpretation: Performing Lab:[facility], [address] [place] [phone] Notes/Report: Prostate Specific Antigen 0.81 <0.05-4.0 ng/mL PSA methodology: Griffith Alinity i Chemiluminescent Microparticle Immunoassay (CMIA) Microalbumin, Random Reviewed date:02/28/2025 12:55:04 PM Interpretation: Performing Lab:[facility], [address] [place] [phone] Notes/Report: Creatinine Urine 133.93 Microalbumin Urine 14.0 Microalbum/Creatinine Ratio Ur 10.4 <30 ug/mg cr Albumin/Creatinine Ratio Reference Ranges: Normal: < 30 ug/mg creatinine Microalbuminuria: 30 - 300 ug/mg creatinine Clinical Albuminuria: > 300 ug/mg creatinine Hemoglobin A1c Reviewed date:02/28/2025 12:55:04 PM Interpretation: Performing Lab:[facility], [address] [place] [phone] Notes/Report: Hemoglobin A1c % 8.1 <6.0 % Hemoglobin A1C Reference Range Adults: 4.8 - 6.0 % Non diabetic: < 6.0 % Goal: < 7.0 % Additional Action Suggested: > 8.0 % Note: Hemoglobin A1c results are invalid for patients with abnormal amounts of HbF. Blood transfusions may impact the HbA1c concentration in the patient sample. Estimated Average Glucose 186 eAG = Estimated average glucose which is %A1C expressed as average glucose, using the formula of the [id number]-[id number] Average Glucose study (ADAG), Diabetes Care, Vol.31,#8, Feb. 2007 Reason For Referral Reason consultation and azalea atment for ? Meniere's Diagnosis 1 Vertigo (R42) Referral Organization Richard Berman III, MD Referring Provider First Name Richard Referring Provider Last Name Antonella Referring Provider Speciality Internal M edicine Referred Provider [facility], [facility] Referred Provider Specialty Otolaryngolo gy General Notes [place] Sweet CMA 06/11 10:26:37 AM > ref/demo/progress note/labs faxed to [facility] today, [place] Sweet CMA 08/20/2024 02:07:39 PM > I called ENT pt has appt on 09/16/2024 at 3:30pm with hearing test first Referral Priority Routine Referral Appointment Date 09/16/2024 Medications Medication SIG (Take, Route, Frequency, Duration) Notes Start Date End Date Status Gauze Pads 3 X3 as directed - use to test blood sugar once a day 02/06/2023 Active Alcohol Pads 70 % as directed - use to check blood sugar once a day 02/06/2023 Active metFORMIN HCl 1000 MG TAKE ONE TABLET BY MOUTH ONCE DAILY Active FreeStyle Lite Test - as directed In Vit ro use to check blood sugar once a day 02/06/2023 Active Lisinopril 5 MG TAKE ONE TABLET BY M OUT ONCE DAILY Active FreeStyle Lite w/Device as directed - us e to check blood sugar once a day 02/06/2023 Active FreeStyle Lancets - as directed - use to check blood sugar once a day 02/06/2023 Active Metoprolol Succinate ER 25 MG TAKE ONE TABLET BY MOUTH ONCE DAILY Active Januvia 100 MG 1 tablet Orally Once a day 02/26/2025 Active Atorvastatin Calcium 80 MG take 1 tablet by mouth every day Orally Once a day Active Aspirin 81 MG 1 capsule Orally Onc e a day Active Immunizations Vaccine Route Administration Date Status Comme nts Influenza Unknown 08/10/2016 Administered Influenza Unknown 04/16/2017 Administered Influenza, quad IM Intramuscular 07/22/2020 Administered COVID- 19 Vaccine Unknown 10/31/2020 Administered 2nd d ose Pfizer Influenza, quad IM Intramuscular 05/17/2021 Administered COVID- 19 Vaccine Unknown 06/12/2021 Administered Influenza, quad IM Intramuscular 06/08/2022 Administered Influenza no Preserv 3 and > Unknown 2014 Administered COVID PFIZER Unknown 10/10/2020 Administered COVID PFIZER Unknown 06/12/2021 Administered COVID PFIZER Unknown 10/31/2020 Administered Social History Tobacco Use: Social History [...] Problem Status W/U Status Risk Notes Problem 6839032 Former smoker (Z87.891) Active confirmed He is highly motivated not to smoke anymore. We have creative plan to prevent relapse in times of stress and illness. Problem 72002230 Hyperlipidemia (E78.5) Active confirmed His lipids are currently well controlled and no change in his current regimen was necessary. Problem Hypertension (07383740) Hypertension (I10) Active confirmed Problem 146611760 Thrombocytopeni a (D69.6) Active confirmed His platelet count is slightly low at 127,000. He has had no bleeding. He has no bruises. This value will be observed carefully. Problem Hyperlipidemia (73055068) Other hyperlipidemia (E78.4) Active confirmed Problem 274056255 Chronic ischemic heart disease, unspecified (I25.9) Active confirmed Problem Osteoarthritis of knee (536610442) Osteoarthritis of knee, unspecified (M17.9) Active confirmed [...] that there was a stress test pending. Problem [id number] Lumbago with sciatica, right side (M54.41) Active confirmed He spent pain has diminished, but is still present. It is minor at this time. I will be treated conservatively. Problem 556700095 Lumbago with sciatica, left side (M54.42) Active confirmed Problem 36728377 Ureterolithiasi s (N20.1) Active confirmed He has had no renal colic since his last visit and denies any hematuria. Problem Benign prostatic hyperplasia (146101294) BPH (benign prostatic hyperplasia) (N40.0) Active confirmed He rises from sleep once or twice a night to urinate. His medications were not changed. We discussed lifestyle modification as a way to reduce nocturia. Problem 291599506 Vertigo (R42) Active confirmed He had an acute episode of vertigo lasting 1 day several days ago that required him to leave work. It has now resolved. Problem 213801192 Obesity (BMI 35.0-39.9 without comorbidity) (E66.01) Active confirmed We continue our efforts should counseling about weight loss. We have discussed weight loss medications. We have discussed diet and nutrition. Problem Hearing loss (47172625) Hearing loss in right ear (H91.91) Active confirmed This resolved completely with irrigation of the cerumen impaction. Problem 54864237 Coagulopathy (D68.9) Active confirmed He had an echocardiogram done by the internet developer to evaluate the myocardial clot and his anticoagulation has been discontinued. 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 Problem 04406682 Benign neoplasm of colon, unspecified part of colon (D12.6) Active confirmed There is no sig n of recurrent disease or new primary today. Problem 3196389 Umbilical hernia without obstruction and without gangrene (K42.9) Active confirmed He has decided not to have the hernia repair at this time as it is minimally symptomatic. Problem 081001693 Fracture of right lower leg, closed, with routine healing, subsequent encounter (S82.91XD) Active confirmed Problem 4866451393215 Coronary artery disease involving paimiut coronary artery of paimiut heart without angina pectoris (I25.10) Active confirmed He has had no exertional or at rest angina since his last visit. The current regimen was continued. He has up-to-date with cardiology. Problem 790695950 Type 2 diabetes mellitus without complication, without long-term current use of insulin (E11.9) Active confirmed His hemoglob in A1c was 8. He was begun on Januvia. He reports an improvement in his fasting glucose levels. A hemoglobin A1c will be done in 90 days. He will aggressively tryy to lose weight and follow a diabetic diet. Problem 16919202 Myocardial infarction, unspecified NJ type, unspecified artery (I21.9) Active confirmed He has had no further chest pain. He has had no episodes of syncope or diarrhea. Pheresis and he has been compliant with all his medications. He is stable at this time. Back to work. Problem Aneurysm (63327524) Aneurysm (I72.9) Active confirmed Problem [id number] Meniere's disease of right ear (H81.01) Active confirmed He is being followed by ENT. He had a recent flareup of vertigo that required him to leave work. No change was made in his medications today. The episode has resolved. 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 He still has occasional vertigo when remains under the care of ENT. Vital Signs Heart Rate 49 /min 03/11/2025 Temperature 98.1 degrees Fahrenheit 03/11/2025 Blood pressure diastolic 83 mm Hg 03/11/2025 Height 68 in 03/11/2025 Blood pressure systolic 137 mm Hg 03/11/2025 Weight 230 lbs 03/11/2025 BMI 34.97 kg/m2 03/11/2025 Encounters Encounter Location Date Provider Diagnosis Richard Berman III, MD [address] [place] [address] [address] [place], [place] [phone] 06/07/2024 Richard Berman Vertigo R42 ; Menier e's disease of both ears H81.03 ; Former smoker Z87.891 ; Thrombocytopenia D69.6 ; Umbilical hernia without obstruction and without gangrene K42.9 ; Type 2 diabetes mellitus without complication, without long-term current use of insulin E11.9 ; Other hyperlipidemia E78.4 ; Myocardial infarction, unspecified NJ type, unspecified artery I21.9 and Obesity (BMI 35.0-39.9 without comorbidity) E66.01 Richard Berman III, MD [address] [place] [address] [address] [place] [address] 06/14/2024 Richard Berman Type 2 diabetes freedom itus without complication, without long-term current use of insulin E11.9 ; Osteoarthritis of knee, unspecified M17.9 ; Hyperlipidemia E78.5 ; Umbilical hernia without obstruction and without gangrene K42.9 ; Thrombocytopenia D69.6 ; Obesity (BMI 35.0-39.9 without comorbidity) E66.01 ; Former smoker Z87.891 ; BPH (benign prostatic hyperplasia) N40.0 and Meniere's disease of right ear H81.01 Richard Berman III, MD [address] [place] [address] [place] [address] 07/19/2024 Richard Berman Type 2 diabetes freedom itus without complication, without long-term current use of insulin E11.9 ; Myocardial infarction, unspecified NJ type, unspecified artery I21.9 ; Former smoker Z87.891 ; Thrombocytopenia D69.6 ; Umbilical hernia without obstruction and without gangrene K42.9 ; Hyperlipidemia E78.5 ; Coronary artery disease involving paimiut coronary artery of paimiut heart without angina pectoris I25.10 ; BPH (benign prostatic hyperplasia) N40.0 ; Obesity (BMI 35.0-39.9 without comorbidity) E66.01 and Status post right knee replacement Z96.651 Richard Berman III, MD [address] [place] [address] [address] [place] [address] 11/27/2024 Richard Berman Type 2 diabetes freedom itus without complication, without long-term current use of insulin E11.9 ; Myocardial infarction, unspecified NJ type, unspecified artery I21.9 ; Thrombocytopenia D69.6 ; Obesity (BMI 35.0-39.9 without comorbidity) E66.01 ; Hyperlipidemia E78.5 and Former smoker Z87.891 Richard Berman III, MD [address] [place] [address] [place] [address] 02/26/2025 Richard Berman Type 2 diabetes freedom itus without complication, without long-term current use of insulin E11.9 ; Thrombocytopenia D69.6 ; Benign neoplasm of colon, unspecified part of colon D12.6 ; Umbilical hernia without obstruction and without gangrene K42.9 ; Former smoker Z87.891 ; Ureterolithiasis N20.1 ; Coronary artery disease involving paimiut coronary artery of paimiut heart without angina pectoris I25.10 and Obesity (BMI 35.0-39.9 without comorbidity) E66.01 Richard Berman III, MD [address] [place] [address] [place] [address] 03/11/2025 Richard Berman Type 2 diabetes freedom itus without complication, without long-term current use of insulin E11.9 ; Coronary artery disease involving paimiut coronary artery of paimiut heart without angina pectoris I25.10 ; Hyperlipidemia E78.5 ; Obesity (BMI 35.0-39.9 without comorbidity) E66.01 ; Former smoker Z87.891 ; Thrombocytopenia D69.6 ; ED (erectile dysfunction) of non-organic origin F52.21 ; Benign neoplasm of colon, unspecified part of colon D12.6 ; Umbilical hernia without obstruction and without gangrene K42.9 ; Myocardial infarction, unspecified NJ type, unspecified artery I21.9 and Meniere's disease of both ears H81.03 Richard Berman III, MD [address] [place] [address] [place] [address] 06/07/2024 Richard Berman III, MD [address] [place] [address] [place] [address] 09/17/2024 Richard Berman III, MD [address] [place] [address] [place] [address] 03/07/2025 Richard Berman Assessments Encounter Date Diagnosis (ICD Code) Assessment [...] MRI of the brain has been ordered. 06/14/2024 Osteoarthritis of knee, unspecified (ICD-10 - [...] there was a stress test pending. 06/14/2024 Type 2 diabetes mellitus without complication, without long-term current use of insulin (ICD-10 - E11.9) His weight is stable. His hemoglobin A1c has dropped from 8.0 down to 7.7 to 7.6. He is consuming a diabetic diet and trying to lose weight and be active. His fasting glucose is 138. 07/19/2024 Type 2 diabetes mellitus without complication, [...] at this time. Back to work. 11/27/2024 Type 2 diabetes mellitus without complication, without long-term current use of insulin (ICD-10 - E11.9) We discussed wisdom of weight loss and managing adult-onset diabetes. We discussed the use of medications control diabetes and reduce weight. He does not wish to take an injectable medication. 11/27/2024 Myocardial infarctio n, unspecified NJ type, unspecified artery (ICD-10 - I21.9) He has had no further chest pain. He has had no episodes of syncope or diarrhea. Pheresis and he has been compliant with all his medications. He is stable at this time. Back to work. 02/26/2025 Thrombocytopenia (ICD-10 - D69.6) His platelet count is slightly low at 133,000. He has had no bleeding. He has no bruises. This value will be observed carefully. 02/26/2025 Type 2 diabetes mellitus without complication, [...] to cconsider them. The patient's decision today. 03/11/2025 Coronary artery disease involving paimiut coronary artery of paimiut heart without angina pectoris (ICD-10 - I25.10) He has had no exertional or at rest angina since his last visit. The current regimen was continued. He has up-to-date with cardiology. 03/11/2025 Type 2 diabetes mellitus without complication, without long-term current use of insulin (ICD-10 - E11.9) His hemoglobin A1c was 8. He was begun on Januvia. He reports an improvement in his fasting glucose levels. A hemoglobin A1c will be done in 90 days. He will aggressively tryy to lose weight and follow a diabetic diet. 06/07/2024 Former smoker (ICD-1 0 - Z87.891) He is highly motivated not to smoke anymore. We have creative plan to prevent relapse in times of stress and illness. 06/14/2024 Hyperlipidemia (ICD- 10 - E78.5) His lipids are well controlled and no change in his regimen was necessary today. 07/19/2024 Former smoker (ICD-1 0 - Z87.891) He is highly motivated not to smoke anymore. We have creative plan to prevent relapse in times of stress and illness. 11/27/2024 Thrombocytopenia (ICD-10 - D69.6) His platelet count is slightly low at 133,000. He has had no bleeding. He has no bruises. This value will be observed carefully. 02/26/2025 Benign neoplasm of colon, unspecified part of colon (ICD-10 - D12.6) There is no sign of recurrent disease or new primary today. 03/11/2025 Hyperlipidemia (ICD- 10 - E78.5) His lipids are currently well controlled and no change in his current regimen was necessary. 06/07/2024 Thrombocytopenia (ICD-10 - D69.6) The current platelet count is 127,000. He has had no bleeding or bruising. He will avoid aspirin. He will notify me if he has any manifestations of blood loss. 06/14/2024 Umbilical hernia without obstruction and without gangrene (ICD-10 - K42.9) He has decided not to have the hernia repair at this time as it is minimally symptomatic. 07/19/2024 Thrombocytopenia (ICD-10 - D69.6) The current platelet count is 127,000. He has had no bleeding or bruising. He will avoid aspirin. He will notify me if he has any manifestations of blood loss. 11/27/2024 Obesity (BMI 35.0-39 .9 without comorbidity) (ICD-10 - E66.01) We made a plan to lose weight at a rate of one half of a pound per week. His body mass index is now 34. 02/26/2025 Umbilical hernia without obstruction and without gangrene (ICD-10 - K42.9) He has decided not to have the hernia repair at this time as it is minimally symptomatic. 03/11/2025 Obesity (BMI 35.0-39 .9 without comorbidity) (ICD-10 - E66.01) We continue our efforts should counseling about weight loss. We have discussed weight loss medications. We have discussed diet and nutrition. 06/07/2024 Umbilical hernia without obstruction and without [...] this time as it is minimally symptomatic. 11/27/2024 Hyperlipidemia (ICD- 10 - E78.5) His lipids are currently stable and no change in her regimen was made today. 02/26/2025 Former smoker (ICD-1 0 - Z87.891) He is highly motivated not to smoke anymore. We have creative plan to prevent relapse in times of stress and illness. 03/11/2025 Former smoker (ICD-1 0 - Z87.891) He is highly motivated not to smoke anymore. We have creative plan to prevent relapse in times of stress and illness. 06/07/2024 Type 2 diabetes mellitus without complication, without long-term current use of insulin (ICD-10 - E11.9) His weight is stable. His hemoglobin A1c has dropped from 8.0 down to 7.7 to 7.6. He is consuming a diabetic diet and trying to lose weight and be active. 06/14/2024 Obesity (BMI 35.0-39 .9 without comorbidity) (ICD-10 - E66.01) He has lost 1 pound. His body mass index is 34. We reviewed the elements of his diabetic diet. We reviewed his weight loss strategy. We reviewed the barriers to weight loss at length. 07/19/2024 Hyperlipidemia (ICD- 10 - E78.5) His lipids are well controlled and no change in his regimen was necessary today. 11/27/2024 Former smoker (ICD-1 0 - Z87.891) He is highly motivated not to smoke anymore. We have creative plan to prevent relapse in times of stress and illness. 02/26/2025 Ureterolithiasis (ICD-10 - N20.1) He has had no renal colic since his last visit and denies any hematuria. 03/11/2025 Thrombocytopenia (ICD-10 - D69.6) His platelet count is slightly low at 127,000. He has had no bleeding. He has no bruises. This value will be observed carefully. 06/07/2024 Other hyperlipidemia (ICD-10 - E78.4) 06/14/2024 Former smoker (ICD-1 0 - Z87.891) He is highly motivated not to smoke anymore. We have creative plan to prevent relapse in times of stress and illness. 07/19/2024 Coronary artery disease involving paimiut coronary artery of paimiut heart without angina pectoris (ICD-10 - I25.10) He has had no exertional or at rest angina since his last visit. The current regimen was continued. He has up-to-date with cardiology. 02/26/2025 Coronary artery disease involving paimiut coronary artery of paimiut heart without angina pectoris (ICD-10 - I25.10) He has had no exertional or at rest angina since his last visit. The current regimen was continued. He has up-to-date with cardiology. 03/11/2025 ED (erectile dysfunction) of non-organic origin (ICD-10 - F52.21) Medication has been prescribed for this problem which has responded to treatment. 06/07/2024 Myocardial infarctio n, unspecified NJ type, unspecified artery (ICD-10 - I21.9) He has had no further chest pain. He has had no episodes of syncope or diarrhea. Pheresis and he has been compliant with all his medications. He is stable at this time. Back to work. 06/14/2024 BPH (benign prostati c hyperplasia) (ICD-10 - N40.0) He rises from sleep once or twice a night to urinate. His medications were not changed. We discussed lifestyle modification as a way to reduce nocturia. 07/19/2024 BPH (benign prostati c hyperplasia) (ICD-10 - N40.0) He rises from sleep once or twice a night to urinate. His medications were not changed. We discussed lifestyle modification as a way to reduce nocturia. 02/26/2025 Obesity (BMI 35.0-39 .9 without comorbidity) (ICD-10 - E66.01) We made a plan to lose weight at a rate of one half of a pound per week. His body mass index is now 34. 03/11/2025 Benign neoplasm of colon, unspecified part of colon (ICD-10 - D12.6) There is no sign of recurrent disease or new primary today. 06/07/2024 Obesity (BMI 35.0-39 .9 without comorbidity) (ICD-10 - E66.01) His weight remains in the obese range despite a 7 pound weight loss.. We reviewed the elements of his diabetic diet. We reviewed his weight loss strategy. We reviewed the barriers to weight loss at length. 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 He had a recent flareup of vertigo that required him to leave work. No change was made in his medications today. The episode has resolved. 07/19/2024 Obesity (BMI 35.0-39 .9 without comorbidity) (ICD-10 - E66.01) He has lost 7 pounds and weighs 220. His boddy mass index is 33.45. We diisscussed a strategy by which she would not regaain the lost weight and would conttinue to lose weight at a rate of one half of a pound per week. 03/11/2025 Umbilical hernia without obstruction and without gangrene (ICD-10 - K42.9) He has decided not to have the hernia repair at this time as it is minimally symptomatic. 07/19/2024 Status post right kn ee replacement (ICD-10 - Z96.651) He is doing well. The right leg is not very swollen and is regaining mobility. The wound is healing well with no sign of infection. He is ambulatory with a cane. 03/11/2025 Myocardial infarctio n, unspecified NJ type, unspecified [...] the care of ENT. Plan Of Treatment Pending Test Test Name Order Date EKG 03/30/2018 PROFILE, FASTING (COMPREHENSIVE METABOLI C) 03/11/2025 PROFILE, FASTING (COMPREHENSIVE METABOLI C) 02/06/2023 HEMOGLOBIN A1C (GLYCOHEMOGLOBIN) 023 LIPID PANEL 02/06/2023 CBC w DIFF 03/11/2025 CBC w DIFF 02/06/2023 Lipid Panel 03/11/2025 Hemoglobin A1c 03/11/2025 Next Appt Details Provider Name:Richard Berman , 05/27/2025 03:15:00 PM, [address] [facility] [address], [place], [address], Provider Name:Richard Germain Antonella , 12/01/2025 03:30:00 PM, [address] [place] [address] [address], [place], [address], Insurance Providers Payer Name Payer Address Payer Phone Subscriber Number Group Number Insured Name Patient Relationship to Insured Coverage Start Date Coverage End Date [employer] [address] [place] [id number] Alfonso Mane Self - patient is the insured 5 MEDICARE [place] [address] [place] [phone] [id number] Alfonso Mane Self - patient is the insured Medical (General) History Medical History History ICD Code tendonitis of thumbs hyperlipidemia overweight 1993 fracture right leg carpal tunnel syndrome umbilical hernia Thrombocytopenia erectile dysfunction acute myocardial infarction March 2018, LAD occlusion, angioplasty and stent anticoagulation with warfarin 2019 hematospermia N 2020 type 2 diabetes mellitus Left ventricle thrombus: Car diac catheterization March 2018, anticoagulated Surgical History Surgery Date(Month/Year) Right leg surgery No history cardiac catheterization 03/2018 Hospitalization History Reason Date(Month/Year) Hospitalization for right leg surgery at [facility] No history cardiac catheterization STEMI
[2025-05-24 10:03] LABS: MANUAL DIFF FLAG NO
[2025-05-24 10:28] LABS: Hematocrit 44.9 % (42.0-52.0); Hemoglobin 14.9 g/dl (14.0-18.0); Imm Gran Abs Auto 0.02 X10*3/uL (0.00-0.03); Imm Gran Pct Auto 0.3 % (0.0-0.4); Lymphocytes Absolute Auto 1.8 X10*3/uL (1.2-4.9); Mean Corpuscular HGB Conc 33.2 g/dl (31.0-36.0); Mean Corpuscular Hemoglobin 28.8 pg (27.0-33.0); Mean Corpuscular Volume 86.7 fL (80.0-98.0); NRBC Abs Auto 0.000 X10*3/uL (0.0-0.012); NRBC Pct Auto 0.0 /100WBC (0.0-0.2); Platelet Count 121 X10*3/uL (160-400); Red Blood Count 5.18 X10*6/uL (4.60-5.80); White Blood Count 6.4 X10*3/uL (4.8-10.8)
[2025-05-24 11:00] LABS: Alanine Aminotransferase 20 U/L (0-40); Albumin Level 4.3 g/dL (3.5-5.0); Alkaline Phosphatase 68 U/L (39-117); Anion Gap 11 (12-20); Aspartate Amino Transferase 22 U/L (5-37); Blood Urea Nitrogen 18 mg/dL (9-16); Calcium 9.1 mg/dL (8.4-10.2); Carbon Dioxide 26 mmol/L (22-29); Chloride 107 mmol/L (96-108); Cholesterol 127 mg/dL (<200); Estimated Glomerular Filt Rate > 60; HDL Cholesterol 48 mg/dL (>40); Potassium 4.4 mmol/L (3.3-5.1); Sodium 140 mmol/L (135-145); Total Protein 6.9 g/dL (6.5-8.0); Triglycerides 83 mg/dL (<150)
== END 2025-05-24 09:53 | disposition home or self-care (01) ==
LOC: HO.LAB 09:52
PROVIDERS: PCP Internal Medicine Medical Oncology; Visit Provider Internal Medicine Medical Oncology
DX: E11.9 Type 2 diabetes mellitus without complications (principal); E78.5 Hyperlipidemia, unspecified; E66.01 Morbid (severe) obesity due to excess calories
CPT/HCPCS: 36415; 80053; 80061; 83036; 85025